=== PATIENT | male | born 1985 | race Caucasian/White ===

== ENCOUNTER 2016-06-17 07:46 | Inpatient (IN) | payer OTHER ==
[~2016-06-17] VITALS: Ht 182.9 cm; Wt 63.7 kg
[2016-06-17] VITALS (7 sets, daily range): BP systolic 90–118; BP diastolic 58–73
[~2016-06-17 07:46] MED LIST: LANTUS INS100 UNITS/ SUBQ; NOVOLIN R100 U/ML SUBQ; NOVOLIN R100 UNITS/ SUBQ
[2016-06-17] MEDS ORDERED: NACL 0.9% 1,000 ML IV SCH ×2 (07:51→10:55)
--- NOTE | 2016-06-17 07:51 | NUR ---
Patient BIBA BLS, transferred to bed 6. RN evaluating patient at bedside.
[2016-06-17] MEDS ORDERED: KETOROLAC 30 MG/ML VIAL IVP ONE (07:55)
[2016-06-17] MEDS ORDERED: ONDANSETRON 4 MG/2 ML VIAL IVP ONE (07:55)
--- NOTE | 2016-06-17 08:00 | NUR ---
PT BIBA - C/O LOWER LEFT NECK PAIN RADIATING DOWN LEFT ARM X2 DAYS;PAIN SCALE OF 7/10;HX OF DM ;NEUROPATHY;AAOX4;NO ACUTE DISTRESS NOTED AT THIS BR[place];DENIES CP/SOB;F;PT STATES HE VOMITTED THIS MORNING;HOB ELEVATED;NEEDS ATTENDED;ALL MONMITORS IN PLACED;SAFETY MEASURES DONE;MD MADE AWARE OF PT'S CONDITION.
--- NOTE | 2016-06-17 08:42 | NUR ---
PT RESTING ON BED;NO ACUTE DISTRESS NOTED AT THIS TIME;WILL CONTINUE TO MONITOR PT.
[2016-06-17] MEDS ORDERED: INSULIN HUMAN REGULAR 100 UNITS/ML 10 ML VIAL IVP ONE ×4 (09:25→10:40)
[2016-06-17] MEDS ORDERED: NACL 0.9% 2,000 ML IV ONE (09:25)
--- NOTE | 2016-06-17 10:40 | NUR ---
ASKED PT IF HE CAN GIVE A URINE SAMPLE;PT SAID HE CAN'T URINATE OF THE MOMENT.
[2016-06-17] MEDS ORDERED: MORPHINE SULFATE 2 MG/ML SYR IVP PRN (10:55)
[2016-06-17] MEDS ORDERED: ONDANSETRON 4 MG/2 ML VIAL IVP PRN (10:55)
--- NOTE | 2016-06-17 11:16 | NUR ---
CALLED ICU O GIVE REPORT;THEY SAID THEY CAN NOT RECIEVED PT AT THE MOMENT;THEY ARE WAITING FOR THE COOK SOUP NURSE TO ARRIVE;THEY WILL GIVE A CALL LATER;
--- NOTE | 2016-06-17 11:58 | NUR ---
Patient will be admitted to care of DR WESTFALL. Admited to ICU. Will go to room ICO 3. Belongings list completed. Report to DARRON DAWSON.
[2016-06-17] MEDS: INSULIN HUMAN REGULAR 100 UNITS in NACL 0.9% 100 ML IV SCH (12:10)
[2016-06-17] MEDS: BLOOD GLUCOSE MONITORING 1 DEV DEV FS SCH ×13 (12:15→23:16)
[2016-06-17] MEDS ORDERED: DEXTROSE 50% 50 ML SYR IVP PRN (12:15)
[2016-06-17] MEDS ORDERED: BLOOD GLUCOSE MONITORING 1 DEV DEV FS SCH (12:15)
--- NOTE | 2016-06-17 12:40 | NUR ---
RECEIVED PT FROM ER BY ARUN, FULL CODE. PT AWAKE, ALERT. ROOM AIR .NO S/S OF RESPIRATORY DISTRESS NOTED. BEDSIDE MONITOR SHOWS SR, BP 107/61. LUNG SOUNDS CLEAR. ABDOMEN SOFT WITH ACTIVE BOWEL SOUNDS. PT ABLE TO MOVE ALL HIS EXTREMITIES. IV TO RIGHT AC #22 ON INSULIN DRIP 5 UNIT/HR, SITE INTACT AND PATENT. POC DISCUSSED WITH PT, PT VERBALIZED UNDERSTANDING. MILD WEAKNESS, TEMP 99.2. HOB ELEVATED 30 DEGREES WITH LOW BED POSITION, CALL LIGHT IN REACH. NPO AT THIS TIME. MRSA COLLECTED. WILL CONTINUE TO MONITOR.
[2016-06-17] MEDS: NICOTINE TRANSD SYS 14 MG/24 HR PATCH TD SCH (13:13)
--- NOTE | 2016-06-17 13:40 | NUR ---
PT IS UNABLE TO GIVE SPUTUM DUE TO ALOC
--- NOTE | 2016-06-17 15:00 | NUR ---
PT SLEEPING , NO S/S OF RESPIRATORY DISTRESS NOTED. CALL LIGHT IN REACH
--- NOTE | 2016-06-17 16:05 | NUR ---
OFFERED PT URINAL. PT VOIDS FREELY, PT HAD 1800 CLEAR YELLOW URINE OUTPUT.
[2016-06-17] MEDS ORDERED: DEXT 5% / NACL 0.9% 500 ML IV SCH (17:30)
--- NOTE | 2016-06-17 17:30 | NUR ---
CALLED . UPDATED PT LAB AND BS 76, PER CONTINUE INSULIN 1 UNIT/HR AND CHANGE IVF TO D5NS 1000ML AT 100 ML/HR, WILL CARRY OUT.
[2016-06-17] MEDS: DEXT 5% /NACL 0.9% 1,000 ML IV SCH (17:50)
--- NOTE | 2016-06-17 18:31 | NUR ---
DR. HERNÁNDEZ IN TO ASSESS PT.
--- NOTE | 2016-06-17 18:50 | NUR ---
PT AWAKE, ALERT, HAD 100% OF DINNER TRAY. NO S/S OF RESPIRATORY DISTRESS NOTED.
--- NOTE | 2016-06-17 19:20 | NUR ---
REPORT GIVEN TO DORIAN ROB.
--- NOTE | 2016-06-17 19:37 | NUR ---
RECEIVED REPORT FROM EUNICE ROB. PATIENT IS SLEEPING IN BED, BUT IS AROUSED BY NAME. VITALS ARE STABLE. NO REPORTS OF PAIN OR DISCOMFORT AT THIS TIME. BREATH SOUNDS ARE CLEAR UPON AUSCULTATION AND BOWEL SOUNDS ARE ACTIVE. THERE IS A #22 IN THE PATIENT'S RIGHT ANTECUBITAL RECEIVING D5NS AT 100 ML/HR AND INSULIN DRIP PER PROTOCOL AT 1 UNIT/HR RELATED TO DX OF DIABETIC KETOACIDOSIS. SCDS ARE IN PLACE FOR VTE PROPHYLAXIS. HOB AT 30 DEGREES WITH BED IN LOW POSITION. CALL LIGHT WITHIN REACH. WILL CONTINUE TO MONITOR PATIENT.
--- NOTE | 2016-06-17 20:15 | NUR ---
ANDROID SOFTWARE ENGINEER AT BEDSIDE FOR SCHEDULED LAB DRAW.
--- NOTE | 2016-06-17 21:30 | NUR ---
PATIENT SLEEPING IN BED. BREATHING IS EVEN AND UNLABORED. SAFETY MEASURES ENFORCED, WITH CALL LIGHT WITHIN REACH. CONTINUE TO MONITOR PATIENT.
[2016-06-18] VITALS (12 sets, daily range): BP systolic 91–129; BP diastolic 44–82
[2016-06-18] MEDS: BLOOD GLUCOSE MONITORING 1 DEV DEV FS SCH ×24 (00:17→23:12)
--- NOTE | 2016-06-18 00:34 | NUR ---
PATIENT SLEEPING IN BED. BREATHING IS EVEN AND UNLABORED. CALL LIGHT WITHIN REACH. CONTINUE TO MONITOR.
--- NOTE | 2016-06-18 03:34 | NUR ---
NO CHANGES IN PATIENT'S CONDITION. PATIENT IS ASLEEP IN BED, BUT CAN BE AROUSED BY NAME. NO SIGNS OF SOB OR DISTRESS NOTED. CALL LIGHT WITHIN REACH. CONTINUE TO MONITOR.
[2016-06-18] MEDS: DEXT 5% /NACL 0.9% 1,000 ML IV SCH ×3 (03:48→23:50)
--- NOTE | 2016-06-18 03:52 | NUR ---
PATIENT AWAKE AND RESTING IN BED. PATIENT REQUESTED SNACK. PROVIDED 1 CUP OF JELLO AND 1 BOX OF APPLE JUICE. EXPLAINED TO PATIENT THAT A SPUTUM SAMPLE IS NEEDED AND INSTRUCTED PATIENT TO EXPECTORATE SPUTUM INTO SPECIMEN CUP. PATIENT VERBALIZED UNDERSTANDING, BUT IS UNABLE TO EXPECTORATE SPUTUM AT THIS TIME. PATIENT'S NEEDS MET AT THIS TIME. CALL LIGHT WITHIN REACH. WILL CONTINUE TO MONITOR PATIENT.
--- NOTE | 2016-06-18 04:12 | NUR ---
PATIENT STATED "I'M STARVING" AND REQUESTED XIOMARA CRACKERS AND SOMETHING TO DRINK. REINFORCED TO PATIENT THAT HE IS ON A CLEAR LIQUID DIET PER MD ORDERS. OFFERED PATIENT JELLO AND JUICE. PATIENT VERBALIZED UNDERSTANDING. PROVIDED 1 CUP OF JELLO AND 1 BOX OF APPLE JUICE. PATIENT'S NEEDS MET AT THIS TIME. CALL LIGHT WITHIN REACH. CONTINUE TO MONITOR PATIENT.
--- NOTE | 2016-06-18 05:05 | NUR ---
WAREHOUSE TRAINER AT BEDSIDE FOR SCHEDULED LAB DRAWS.
--- NOTE | 2016-06-18 06:36 | NUR ---
PATIENT SLEEPING IN BED WITH NO SIGNS OF SOB OR DISTRESS NOTED. CALL LIGHT WITHIN REACH. CONTINUE TO MONITOR.
--- NOTE | 2016-06-18 07:02 | NUR ---
PATIENT IN STABLE CONDITION. ALL PATIENT'S NEEDS ATTENDED TO DURING SHIFT. ENDORSED CONTINUITY OF CARE TO EUNICE ROB.
--- NOTE | 2016-06-18 07:30 | NUR ---
RECEIVED REPORT FROM DORIAN, PT SLEEPING BUT EASILY AWAKING BY INITIAL ASSESSMENT. NO S/S OF RESPIRATORY NOTED. PT ON INSULIN DRIP 1 UNIT/HR PER PROTOCOL AND D5NS 100 ML/HR. SITE INTACT AND PATENT. ABDOMEN FLAT AND SOFT WITH ACTIVE BOWEL SOUND. SCDS IN PLACE, CALL LIGHT IN REACH, HOB ELEVATED 30 DEGREES, POC DISCUSSED WITH PT, PT DENIES PAIN AT THIS TIME.WILL CONTINUE TO MONITOR.
[2016-06-18] MEDS: ENOXAPARIN 40 MG/0.4 ML SYR SUBQ SCH (08:40)
--- NOTE | 2016-06-18 08:45 | NUR ---
CALLED DR. HERNÁNDEZ REGARDING PT LAB REPORT AND RECENT BLOOD SUGAR RESULT. NO NEW ORDER RECEIVED AT THIS TIME.
--- NOTE | 2016-06-18 08:50 | NUR ---
DR. HERNÁNDEZ CALLED AND NOTIFIED OF 0500 BMP RESULTS. WILL CONTINUE INSULIN DRIP ORDERED. Addendum: 06/18/16 at 1007 by Promise Cline RN DUPLICATE CHARTING.
--- NOTE | 2016-06-18 10:15 | NUR ---
PT REFUSED TO CHECK BLOOD SUGAR, BENEFITS AND RISKS EXPLAINED TO PT, PT STILL REFUSED. CHARGE NURSE AWARE.
--- NOTE | 2016-06-18 11:15 | NUR ---
PT REFUSED BLOOD SUGAR CHECKED. EXPLAINED TO PT IF WE DO NOT CHECK BLOOD SUGAR, WE UNABLE TO KNOW HOW TO ADJUST INSULIN DRIP PER PROTOCOL. PT STATING " I HAVE BEEN DIABETES FOR 13 YEARS, I KNOW WHEN MY BLOOD SUGAR IS HIGH OR LOW". CHARGE NURSE AWARE.
[2016-06-18] MEDS ORDERED: PROBIOTIC SCREEN 1 EA MISC MC PRN (11:30)
[2016-06-18] MEDS: INSULIN HUMAN REGULAR 100 UNITS in NACL 0.9% 100 ML IV SCH (12:06)
[2016-06-18] MEDS: MORPHINE SULFATE 4 MG/ML SYR IVP PRN ×3 (12:11→22:21)
[2016-06-18] MEDS: NICOTINE TRANSD SYS 14 MG/24 HR PATCH TD SCH (12:56)
--- NOTE | 2016-06-18 14:51 | NUR ---
NOTIFIED REGARDING 1300 BMP, NO NEW ORDER RECEIVED.
--- NOTE | 2016-06-18 15:23 | NUR ---
OFFERED PT BEDSIDE COMMODE, 1800 ML CLEAR YELLOW URINE OUTPUT.
[2016-06-18] MEDS ORDERED: HYDROcodone/APAP 5/325 MG 1 TAB TAB PO PRN (16:20)
[2016-06-18] MEDS ORDERED: ACETAMINOPHEN 325 MG TAB PO PRN (16:20)
--- NOTE | 2016-06-18 18:00 | NUR ---
DINNER TRAY SERVED, PT ATE 100%. NO S/S OF RESPIRATORY DISTRESS NOTED. WILL CONTINUE TO MONITOR.
--- NOTE | 2016-06-18 19:05 | NUR ---
PT AWAKE, ALERT, ORIENTED. RESTING IN BED WATCHING TV. NO SOB.
--- NOTE | 2016-06-18 19:22 | NUR ---
RECEIVED REPORT FROM EUNICE ROB. PATIENT IS AWAKE AND ALERT, RESTING IN BED WATCHING TELEVISION. VITALS ARE STABLE. PATIENT COMPLAINS OF 4/10 HEADACHE AND ASKED FOR MEDICATION. ADMINISTERED TYLENOL PRN PER DOCTOR'S ORDERS. BREATH SOUNDS ARE CLEAR UPON AUSCULTATION AND BOWEL SOUNDS ARE ACTIVE. THERE IS A #22 IN THE PATIENT'S RIGHT ANTECUBITAL RECEIVING D5NS AT 100 ML/HR AND INSULIN DRIP PER PROTOCOL AT 1 UNIT/HR RELATED TO DX OF DIABETIC KETOACIDOSIS. SCDS ARE IN PLACE FOR VTE PROPHYLAXIS. EXPLAINED PLAN OF CARE TONIGHT TO INCLUDE SCHEDULED MEDICATION ADMINISTRATION, VITALS SIGNS, AND MONITORING. PATIENT VERBALIZED UNDERSTANDING. HOB AT 30 DEGREES WITH BED IN LOW POSITION. CALL LIGHT WITHIN REACH. WILL CONTINUE TO MONITOR PATIENT.
--- NOTE | 2016-06-18 20:00 | NUR ---
PATIENT REQUESTED A SNACK. RAMÓN LISA MAY BROUGHT IN TURKEY SANDWICH FOR PATIENT. PATIENT'S NEEDS MET AT THIS TIME WILL CONTINUE TO MONITOR PATIENT.
--- NOTE | 2016-06-18 21:05 | NUR ---
FIRE CREW SPECIALIST AT BEDSIDE FOR SCHEDULED BLOOD DRAW.
--- NOTE | 2016-06-18 23:02 | NUR ---
PATIENT RESTING QUIETLY IN BED WATCHING TV. NO SIGNS OF SOB OR DISTRESS NOTED. VITALS ARE STABLE. CALL LIGHT WITHIN REACH. WILL CONTINUE TO MONITOR PATIENT.
[2016-06-19] VITALS: BP 100/52
--- NOTE | 2016-06-19 00:03 | NUR ---
PATIENT RESTING QUIETLY IN BED WATCHING TV. NO SIGNS OF ACUTE DISTRESS NOTED. VITALS ARE STABLE. CALL LIGHT WITHIN REACH. WILL CONTINUE TO MONITOR.
--- NOTE | 2016-06-19 00:07 | NUR ---
MASTER GLAZIER AT BEDSIDE FOR SCHEDULED LAB DRAW.
[2016-06-19] MEDS: BLOOD GLUCOSE MONITORING 1 DEV DEV FS SCH ×8 (00:18→07:25)
--- NOTE | 2016-06-19 01:07 | NUR ---
PATIENT REQUESTED SANDWICH. RAMÓN JACKSON RN NOTIFIED. 1 CHICKEN SALAD SANDWICH PROVIDED. PATIENT'S NEEDS MET AT THIS TIME. CALL LIGHT WITHIN REACH. CONTINUE TO MONITOR.
[2016-06-19 02:00] VITALS: BP 113/72
[2016-06-19] MEDS: MORPHINE SULFATE 4 MG/ML SYR IVP PRN ×2 (02:41→07:25)
[2016-06-19 04:00] VITALS: BP 114/73
--- NOTE | 2016-06-19 04:00 | NUR ---
BAG TURNER AT BEDSIDE FOR SCHEDULED LAB DRAW.
--- NOTE | 2016-06-19 04:05 | NUR ---
PATIENT REQUESTED SNACK. 1 PACKET OF XIOMARA CRACKERS AND SMALL CARTON OF MILK PROVIDED. CONTINUE TO MONITOR.
[2016-06-19 06:00] VITALS: BP 105/66
--- NOTE | 2016-06-19 07:11 | NUR ---
PATIENT IN STABLE CONDITION. ALL NEEDS ATTENDED TO DURING SHIFT. ENDORSED CONTINUITY OF CARE TO SANJAY ROB.
--- NOTE | 2016-06-19 07:20 | NUR ---
RECEIVED REPORT FROM DARRON ALARCON. PT SEEN AT BEDSIDE. PT IS AAOX4 WITH NO S/S DISTRESS OR SOB; ON ROOM AIR. ON DISABILITY LIAISON OFFICER RUNNING SINUS RHYTHM. PT HAS RIGHT AC 22G IV RUNNING IVF AND INSULIN DRIP AT THIS TIME. PT HAS GOOD APPETITE. SKIN IS WARM, DRY, INTACT; PT IS AMBULATORY. PT STATES HE HAS 7/10 NECK PAIN. PT REFUSED SCD'S AT THIS TIME. SAFETY MEASURES CHECKED, CALL LIGHT LEFT AT BEDSIDE. WILL CONTINUE TO MONITOR.
--- NOTE | 2016-06-19 07:25 | NUR ---
MORPHINE ADMINISTERED FOR NECK PAIN 09/11.
--- NOTE | 2016-06-19 07:26 | NUR ---
BLOOD GLUCOSE 182. THREE CONSECUTIVE ANION GAP HAVE BEEN BELOW 12. INSULIN DRIP STOPPED.
--- NOTE | 2016-06-19 07:40 | NUR ---
WAS NOTIFIED OF INSULIN DRIP HAS BEEN STOPPED,UPDATED IN PT'S CONDITION AND LAB REPORT WITH LOW SERUM MG 1.4 AND SERUM K 3.4. ORDER RECEIVED FOR INSULIN SUBQ SLIDING SCALE,CHANGE FREQUENCY OF FS BLOOD GLUCOSE TO AC&HS,GIVE MAGNESIUM SULFATE 2 GM IVPB X 1 AND TRANSFER PATIENT TO MED-SURG.
[2016-06-19] MEDS ORDERED: INSULIN LISPRO SLIDING SCALE 100 UNITS/ML VIAL SUBQ PRN (07:45)
[2016-06-19] MEDS ORDERED: DEXTROSE 50% 50 ML SYR IVP PRN (07:45)
--- NOTE | 2016-06-19 07:48 | NUR ---
PATIENT HAS BEEN SCREENED AND CATEGORIZED HIGH NUTRITION RISK. PATIENT WILL BE SEEN WITHIN 1-2 DAYS OF ADMISSION. 06/18/16-06/19/[address]
--- NOTE | 2016-06-19 07:50 | NUR ---
BREAKFAST TRAY PLACED NEXT TO PATIENT.
[2016-06-19 08:00] VITALS: BP 100/57
[2016-06-19] MEDS ORDERED: MAG SULF 2000 MG/WATER PREMIX 50 ML IV SCH (08:00)
[2016-06-19] MEDS ORDERED: POTASSIUM CHLORIDE 10 MEQ TABER PO SCH (08:04)
--- NOTE | 2016-06-19 08:15 | NUR ---
PT REQUESTING FOR A SNACK. CHOCOLATE PUDDING OFFERED. PT STATED THAT CHOCOLATE PUDDING IS OK.
[2016-06-19] MEDS: ENOXAPARIN 40 MG/0.4 ML SYR SUBQ SCH (08:33)
--- NOTE | 2016-06-19 08:33 | NUR ---
ROUTINE MEDICATIONS ADMINISTERED WITH EDUCATION. PT REFUSED LEVEMIR 30 UNITS. PER PT, HE DOES NOT LIKE LEVEMIR BECAUSE IT GIVES HIM HEADACHES. PT SAYS HE ALREADY SELF-ADMINISTERED 6 UNITS OF HUMALOG INSULIN. TOLD PT NOT TO SELF-ADMINISTER WHEN HE IS IN THE HOSPITAL BECAUSE IT MAY DOUBLE DOSE WITH THE SCHEDULED INSULIN HE HAS. PT VERBALIZED UNDERSTANDING. PT ALSO STATED THAT HE GETS LEVEMIR AT NIGHT.
--- NOTE | 2016-06-19 08:35 | NUR ---
CALLED PASCUAL, PHARMACIST, TO CHANGE LEVEMIR 30 UNITS SUBQ TO NIGHTTIME DOSE. PER PASCUAL, IT IS OK LONG PATIENT HASN'T RECEIVED LEVEMIR THIS AM.
--- NOTE | 2016-06-19 08:45 | NUR ---
PT REQUESTING DIET LORRAINE. DIETARY CALLED, MESSAGE LEFT.
--- NOTE | 2016-06-19 08:55 | NUR ---
PROVIDED PATIENT WITH DIET LORRAINE.
[2016-06-19] MEDS ORDERED: INSULIN DETEMIR 100 UNITS/ML 10 ML VIAL SUBQ SCH (09:00)
--- NOTE | 2016-06-19 09:00 | NUR ---
PT REQUESTING FOR SANDWICH. DIETARY CALLED, MESSAGE LEFT THAT PT IS REQUESTING FOR SANDWICH. Addendum: 06/19/16 at 1120 by Trice Page RN TIME IS AT 1015, NOT 0900.
[2016-06-19] MEDS: DEXT 5% /NACL 0.9% 1,000 ML IV SCH (10:06)
--- NOTE | 2016-06-19 10:08 | NUR ---
FAXED INITIAL REVIEW TO [facility] [phone] PHONE NIRMALA [phone]
--- NOTE | 2016-06-19 11:00 | NUR ---
PATIENT STATING THAT HE WANTS TO LEAVE AMA. PULLING OFF OVERNIGHT HOUSEPERSON, SPO2 MONITOR AT THIS TIME.
--- NOTE | 2016-06-19 11:01 | NUR ---
DR EDGAR MCKINNEY B/C PATIENT WANTS TO LEAVE AMA. AWAITING CALLBACK.
--- NOTE | 2016-06-19 11:09 | NUR ---
PATIENT WANTS TO LEAVE AMA. ASKED PATIENT IF I CAN ADDRESS ANY ISSUES HE HAS WITH THE HOSPITAL BEFORE LEAVING AMA. PATIENT STATED THAT HE IS JUST WAITING AT THE HOSPITAL AND NOT TRANSFERRED OUT OF THE ICU, NO SANDWICH WAS PROVIDED FOR HIM WHEN HE ASKED, AND THE DOCTOR HASN'T DONE ANYTHING FOR THIS NECK PAIN. EXPLAINED TO PATIENT THAT THE KITCHEN WAS CALLED AND MESSAGE WAS LEFT FOR HIS SANDWICH REQUEST AND THAT WE ARE WAITING FOR AN AVAILABLE BED IN TELE UNIT. EXPLAINED TO PATIENT THAT HE IS IN THE HOSPITAL BECAUSE HIS BLOOD SUGAR WAS EXTREMELY HIGH, MONITORING IS REQUIRED UNTIL HE IS STABLE ENOUGH FOR DISCHARGE. THE DOCTOR IS NOT READY TO DISCHARGE HIM AT THIS TIME AND HE WILL BE LEAVING AGAINST THE MEDICAL ADVICE OF DR. HERNÁNDEZ. PT ALSO DOES NOT WANT TO WAIT FOR DR HERNÁNDEZ'S CALL BACK. PT VERBALIZED UNDERSTANDING AND STILL WANTS TO LEAVE. AMA FORM SIGNED. WRIST BANDS CUT OFF AND IV DISCONTINUED. Addendum: 06/19/16 at 1146 by Trice Page RN PER PATIENT, HE HAS ALL BELONGINGS WITH HIM.
[2016-06-19] MEDS ORDERED: BLOOD GLUCOSE MONITORING 1 DEV DEV FS SCH (11:30)
--- NOTE | 2016-06-19 11:34 | NUR ---
NOTIFIED APPLICATIONS SUPPORT ENGINEER, MELISSA, THAT PATIENT HAS LEFT AMA. ALDO, DIRECTOR OF ICU AWARE.
--- NOTE | 2016-06-19 12:21 | NUR ---
06/19/16 RD INITIAL ASSESSMENT COMPLETED PLEASE REFER TO NUTRITION ASSESSMENT UNDER CARE ACTIVITY FOR ESTIMATED NUTRITIONAL NEEDS. RD RECOMMENDATIONS: CONTINUE CCHO 45 GM DIET TOLERATED. WHEN MEDICALLY APPROPRIATE CONSIDER ADVANCING DIET TO CCHO [address] PROVIDED PT WITH DM DIET EDUCATION. 4. RD WILL F/U 3-5 DAYS; MODERATE RISK. GURU ALMANZAR RD
== END 2016-06-19 11:09 | disposition left against medical advice (07) | DRG 420 ==
LOC: MED 07:46 → MIC 11:13
PROVIDERS: ADMIT Internal Medicine Pulmonary Disease; ATTEND Internal Medicine Pulmonary Disease
DX: E10.10 Type 1 diabetes mellitus with ketoacidosis without coma (principal); E10.42 Type 1 diabetes mellitus with diabetic polyneuropathy; E87.1 Hypo-osmolality and hyponatremia; F15.10 Other stimulant abuse, uncomplicated; F17.200 Nicotine dependence, unspecified, uncomplicated; J06.9 Acute upper respiratory infection, unspecified; F12.90 Cannabis use, unspecified, uncomplicated; Z53.21 Procedure and treatment not carried out due to patient leaving prior to being seen by health care provider; S16.1XXA Strain of muscle, fascia and tendon at neck level, initial encounter; X58.XXXA Exposure to other specified factors, initial encounter; Z59.0 Homelessness; Z91.19 Patient's noncompliance with other medical treatment and regimen; Z83.3 Family history of diabetes mellitus; Z82.49 Family history of ischemic heart disease and other diseases of the circulatory system; Y99.8 Other external cause status; Y93.89 Activity, other specified; Y92.89 Other specified places as the place of occurrence of the external cause

== ENCOUNTER 2016-06-20 12:47 | Inpatient (IN) | payer OTHER ==
[~2016-06-20] VITALS: Ht 180.3 cm; Wt 66.7 kg
[~2016-06-20 12:47] MED LIST changes: -LANTUS INS100 UNITS/ SUBQ; +LANTUS SUBQ; -NOVOLIN R100 U/ML SUBQ; -NOVOLIN R100 UNITS/ SUBQ; +NOVR SUBQ; +SLIDE SUBQ
[2016-06-20 13:12] VITALS: BP 114/64
[2016-06-20] MEDS ORDERED: NACL 0.9% 500 ML IV ONE ×2 (13:37)
--- NOTE | 2016-06-20 13:40 | NUR ---
Pt taken to bed 6.
--- NOTE | 2016-06-20 13:45 | NUR ---
30/M presents to ED for evaluation of generalized weakness and c/o pain to left neck. Pt states "I have a lump in my neck it's been there for 2 years." Patient was admitted here for DKA Sunday and signed out AMA yesterday. Denies N/V/D. Denies s/s of UTI. Pt is AOX4, states he is livingon the streets right now. VSS. Pt states he takes insulin but is not always compliant with taking it. Pt states "I live on the streets. It's hard."
[2016-06-20 13:52] LABS: BLOOD GAS BASE EXCESS -15.4 mmol/L (-2.0-2.0); BLOOD GAS HCO3 10.7 mmol/L; BLOOD GAS O2 SAT% 93.5 % (92.0-98.5); BLOOD GAS PCO2 26.9 mmHg (20-50); BLOOD GAS PH 7.216 (7.35-7.45); BLOOD GAS PO2 80.9 mmHg
[2016-06-20 13:57] LABS: BASOPHILS # (AUTO) 0.1 K/uL (0.00-0.22); BASOPHILS % (AUTO) 0.9 % (0.0-2.0); EOSINOPHILS # (AUTO) 0.1 K/uL (0-0.4); EOSINOPHILS % (AUTO) 1.3 % (0.0-4.0); HEMATOCRIT 43.1 % (36-52); HEMOGLOBIN 13.9 g/dL (12.0-18.0); LYMPHOCYTES # (AUTO) 0.8 K/uL (2.0-11.5); LYMPHOCYTES % (AUTO) 13.5 % (20.5-51.1); MEAN CORPUSCULAR HEMOGLOBIN 31 pg (27-31); MEAN CORPUSCULAR HGB CONC 32 g/dL (33-37); MEAN CORPUSCULAR VOLUME 96 fL (80-94); MONOCYTES # (AUTO) 0.2 K/uL (0.8-1.0); MONOCYTES % (AUTO) 3.6 % (1.7-9.3); NEUTROPHILS # (AUTO) 4.7 K/uL (1.8-7.7); NEUTROPHILS % (AUTO) 80.7 % (42.2-75.2); PLATELET COUNT (AUTO) 189 K/uL (140-450); RED BLOOD CELL COUNT(AUTO) 4.47 MIL/uL (4.20-6.10); RED CELL DISTRIBUTION WIDTH 11.9 % (11.6-13.7); WHITE BLOOD COUNT (AUTO) 5.9 K/uL (4.8-10.8)
--- NOTE | 2016-06-20 14:18 | NUR ---
Patient being evaluated by physician at bedside.
[2016-06-20 14:19] LABS: ALANINE AMINOTRANSFERASE 54 U/L (12-78); ALBUMIN 3.6 g/dL (3.4-5.0); ALKALINE PHOSPHATASE 109 U/L (46-116); ASPARTATE AMINOTRANSFERASE 25 U/L (15-37); CALCIUM 8.5 mg/dL (8.5-10.1); CARBON DIOXIDE 14.1 mmol/L (21-32); GFR ARICAN-AMERICAN 112 mL/min (>90); GFR NON ARICAN-AMERICAN 93 mL/min (>90); TOTAL BILIRUBIN 1.1 mg/dL (0.0-1.0); TOTAL PROTEIN, SERUM 6.5 g/dL (6.4-8.2); UREA NITROGEN, BLOOD 17 mg/dL (7-18)
[2016-06-20 14:26] LABS: ANION GAP 28.1 (8-16); CHLORIDE 87 mmol/L (98-107); POTASSIUM 5.2 mmol/L (3.5-5.1)
[2016-06-20 14:29] LABS: ACETONE, SERUM MODERATE (NEGATIVE); GLUCOSE 855 mg/dL (74-106); SODIUM SERUM 124 mmol/L (136-145)
[2016-06-20] MEDS ORDERED: INSULIN HUMAN REGULAR 100 UNITS/ML 10 ML VIAL IVP ONE (14:30)
[2016-06-20] MEDS ORDERED: NACL 0.9% 1,000 ML IV ONE (14:30)
--- NOTE | 2016-06-20 14:44 | NUR ---
MEDICATION ADMINISTERED ORDERED.
[2016-06-20] MEDS ORDERED: INSULIN HUMAN REGULAR 100 UNITS in NACL 0.9% 100 ML IV ONE (15:10)
[2016-06-20] MEDS ORDERED: ONDANSETRON 4 MG/2 ML VIAL IVP ONE (15:15)
[2016-06-20] MEDS ORDERED: KETOROLAC 30 MG/ML VIAL IVP ONE (15:15)
--- NOTE | 2016-06-20 15:23 | NUR ---
MEDICATION ADMINISTERED ORDERED.
--- NOTE | 2016-06-20 15:33 | NUR ---
Pt provided with warm blanket and pillow. Pt placed in a position of comfort. VSS.
--- NOTE | 2016-06-20 15:46 | NUR ---
Patient will be admitted to care of Dr. Donato. Admited to ICU-3. Will go to room ICU 3. Belongings list completed. Report to Trice ROB.
[2016-06-20 16:00] VITALS: BP 102/53
--- NOTE | 2016-06-20 16:21 | NUR ---
Dr. Perez at bedside.
[2016-06-20] MEDS ORDERED: DEXTROSE 50% 50 ML SYR IVP PRN (16:40)
[2016-06-20 16:45] VITALS: BP 102/53
--- NOTE | 2016-06-20 16:45 | NUR ---
RECEIVED PATIENT FROM ER. PT TRANSFERRED FROM [facility] TO [facility]. PT IS AAOX4, ON ROOM AIR. PT ATTACHED TO BEDSIDE MONITOR. VITAL SIGNS STABLE: TEMP 98.3F, 93 HR, 102/53 BP, RR14. PT STATES THAT HE CAME INTO HOSPITAL FOR PAIN IN THE NECK AND GENERAL MALAISE. PAIN MEDS WERE ADMINISTERED IN ER. PT HAS IV ON LEFT FA 20G RUNNING INSULIN DRIP. IV IS PATENT AND INTACT. BLOOD GLUCOSE IS CURRENTLY 421. LEFT FOOT EXCORIATION/REDNESS NOTED ON LEFT FOOT AND MULTIPLE DRIED SCABS ON LOWER EXTREMITY NOTED. SCD'S PLACED, CALL LIGHT LEFT AT BEDSIDE AND SAFETY MEASURES CHECKED. WILL CONTINUE TO MONITOR.
--- NOTE | 2016-06-20 17:00 | NUR ---
DR CALIX AT NURSING STATION. UPDATED MD ON PATIENT CONDITION. WILL FOLLOW UP ON ORDERS.
[2016-06-20] MEDS: BLOOD GLUCOSE MONITORING 1 DEV DEV FS SCH ×8 (17:25→23:40)
--- NOTE | 2016-06-20 17:30 | NUR ---
DR FIFI MCKINNEY.
--- NOTE | 2016-06-20 17:35 | NUR ---
RECEIVED CALL BACK FROM DR GARCIA. PT NEEDS PAIN MEDICATION AND IVF ORDER. ORDERS RECEIVED; WILL FOLLOW UP.
[2016-06-20] MEDS ORDERED: HYDROcodone/APAP 5/325 MG 1 TAB TAB PO PRN (17:40)
[2016-06-20] MEDS ORDERED: ONDANSETRON 4 MG/2 ML VIAL IVP PRN (17:40)
[2016-06-20] MEDS ORDERED: ACETAMINOPHEN 325 MG TAB PO PRN (17:40)
[2016-06-20] MEDS ORDERED: NACL 0.9% 1,000 ML IV SCH (17:40)
[2016-06-20] MEDS: INSULIN HUMAN REGULAR 100 UNITS in NACL 0.9% 100 ML IV SCH ×2 (17:47→18:43)
--- NOTE | 2016-06-20 17:55 | NUR ---
DINNER TRAY GIVEN TO PATIENT.
[2016-06-20 18:00] VITALS: BP 115/73
--- NOTE | 2016-06-20 18:24 | NUR ---
PT REFUSED ORAL CARE OR PM CARE AT THIS TIME.
--- NOTE | 2016-06-20 19:08 | NUR ---
ENDORSED PLAN OF CARE TO DARRON CAMERON.
[2016-06-20 20:00] VITALS: BP 98/57
--- NOTE | 2016-06-20 20:00 | NUR ---
PATIENT ASLEEP, OPEN EYES AND FOLLOWS SIMPLE COMMANDS, SR ON THE MONITOR, RESPIRATIONS NORMAL, ON REGULAR INSULIN DRIP, DECREASED TO 2 UNITS/HE AT 1940, BS WAS 247, LFA IV SITE G#20 PATENT AND INTACT, WITH IVF OF NS AT 200 MLS/HR, DENIES PAIN.
[2016-06-20 20:39] LABS: ANION GAP 11.7 (8-16); CALCIUM 8.2 mg/dL (8.5-10.1); CARBON DIOXIDE 25.5 mmol/L (21-32); CREATININE 0.9 mg/dL (0.6-1.3); POTASSIUM 4.2 mmol/L (3.5-5.1)
[2016-06-20] MEDS: DEXT 5% / NACL 0.45% 1,000 ML IV SCH (20:40)
[2016-06-20 20:58] LABS: MAGNESIUM 1.9 mg/dL (1.8-2.4); PHOSPHORUS 3.6 mg/dL (2.5-4.9)
[2016-06-20 22:00] VITALS: BP 114/70
--- NOTE | 2016-06-20 22:00 | NUR ---
BLOOD SUGAR MONITORED Q1H, REGULAR INSULIN DRIP TITRATED PER BLOOD SUGAR SUGAR LEVEL, IVF CONTINUE, DENIES PAIN.
[2016-06-21] VITALS (8 sets, daily range): BP systolic 105–124; BP diastolic 60–80
--- NOTE | 2016-06-21 | NUR ---
PATIENT ASLEEP, CONTINUE WITH BLOOD SUGAR MONITORING.
[2016-06-21] MEDS: BLOOD GLUCOSE MONITORING 1 DEV DEV FS SCH ×8 (00:41→07:40)
[2016-06-21 00:57] LABS: ANION GAP 10.7 (8-16); CREATININE 0.7 mg/dL (0.6-1.3); POTASSIUM 3.7 mmol/L (3.5-5.1)
[2016-06-21 01:01] LABS: MAGNESIUM 1.7 mg/dL (1.8-2.4); PHOSPHORUS 4.3 mg/dL (2.5-4.9)
[2016-06-21] MEDS: DEXT 5% / NACL 0.45% 1,000 ML IV SCH ×2 (03:30→06:05)
--- NOTE | 2016-06-21 03:47 | NUR ---
PATIENT GETTING UPSET WHY FINGERSTICK IS BEING DONE Q1H, EXPLAINED THAT IT IS NECESSARY TO MONITOR HIS BLOOD SUGAR WHILE HE IS ON REGULAR INSULIN DRIP. LAST BS AT 0340 WAS 105, INSULIN DRIP REMAINS AT 1 UNIT/HR, DENIES PAIN.
[2016-06-21 04:53] LABS: BASOPHILS # (AUTO) 0.2 K/uL (0.00-0.22); BASOPHILS % (AUTO) 3.5 % (0.0-2.0); EOSINOPHILS # (AUTO) 0.1 K/uL (0-0.4); EOSINOPHILS % (AUTO) 1.3 % (0.0-4.0); HEMATOCRIT 37.9 % (36-52); HEMOGLOBIN 12.6 g/dL (12.0-18.0); LYMPHOCYTES % (AUTO) 43.8 % (20.5-51.1); MEAN CORPUSCULAR HEMOGLOBIN 31 pg (27-31); MEAN CORPUSCULAR HGB CONC 33 g/dL (33-37); MEAN CORPUSCULAR VOLUME 92 fL (80-94); MONOCYTES # (AUTO) 0.4 K/uL (0.8-1.0); MONOCYTES % (AUTO) 7.5 % (1.7-9.3); NEUTROPHILS # (AUTO) 2.2 K/uL (1.8-7.7); NEUTROPHILS % (AUTO) 43.9 % (42.2-75.2); PLATELET COUNT (AUTO) 171 K/uL (140-450); RED CELL DISTRIBUTION WIDTH 11.6 % (11.6-13.7); WHITE BLOOD COUNT (AUTO) 4.9 K/uL (4.8-10.8)
--- NOTE | 2016-06-21 05:02 | NUR ---
SLEEPING COMFORTABLY, VS STABLE, LAST BLOOD SUGAR WAS 109.
--- NOTE | 2016-06-21 06:09 | NUR ---
REFUSED AM CARE, DENIES PAIN, CONTINUE ON REGULAR INSULIN DRIP, AT 1 UNIT.HR AT THIS TIME. DENIES PAIN.
[2016-06-21 06:14] LABS: ANION GAP 10.4 (8-16); CARBON DIOXIDE 26.1 mmol/L (21-32); CREATININE 0.6 mg/dL (0.6-1.3); POTASSIUM 3.5 mmol/L (3.5-5.1)
[2016-06-21] MEDS ORDERED: NACL 0.9% 1,000 ML IV SCH ×2 (06:40→09:45)
[2016-06-21 07:20] LABS: MAGNESIUM 1.6 mg/dL (1.8-2.4); PHOSPHORUS 4.1 mg/dL (2.5-4.9)
--- NOTE | 2016-06-21 07:40 | NUR ---
BLOOD GLUCOSE 119 CONTINUE INSULIN DRIP CONTINUE AT 1UNIT/HR.
--- NOTE | 2016-06-21 07:49 | NUR ---
PATIENT HAS BEEN SCREENED AND CATEGORIZED HIGH NUTRITION RISK. PATIENT WILL BE SEEN WITHIN 1-2 DAYS OF ADMISSION. 06/21/16-06/22/[address]
[2016-06-21 08:32] LABS: ANION GAP 9.3 (8-16); CALCIUM 8.1 mg/dL (8.5-10.1); CARBON DIOXIDE 28.4 mmol/L (21-32); CREATININE 0.8 mg/dL (0.6-1.3); POTASSIUM 3.7 mmol/L (3.5-5.1)
[2016-06-21 08:36] LABS: MAGNESIUM 1.5 mg/dL (1.8-2.4)
--- NOTE | 2016-06-21 08:40 | NUR ---
BL SUGAR 168 INSULIN DRIP AT 1UNIT/HR
[2016-06-21] MEDS ORDERED: INSULIN DETEMIR 100 UNITS/ML 10 ML VIAL SUBQ SCH (09:45)
[2016-06-21] MEDS ORDERED: INSULIN LISPRO SLIDING SCALE 100 UNITS/ML VIAL SUBQ PRN (09:45)
[2016-06-21] MEDS ORDERED: DEXTROSE 50% 50 ML SYR IVP PRN (09:45)
--- NOTE | 2016-06-21 09:45 | NUR ---
FIFI SESAY ORDERED TO D/C INSULIN IV DRIP STARTED ON SLIDING SCALE. AND GIVE LEVIMIR INSULIN 15UNIT SQGIVEN
--- NOTE | 2016-06-21 10:44 | NUR ---
CM NOTE INITIAL REVIEW SENT TO [facility] FAX# [phone] PH#NIRMALA [phone] AUGUST [phone]
[2016-06-21] MEDS ORDERED: BLOOD GLUCOSE MONITORING 1 DEV DEV FS SCH (11:30)
--- NOTE | 2016-06-21 11:30 | NUR ---
BL. GLUCOSE 172 , REGULAR INSULIN COVER ORDERED..
--- NOTE | 2016-06-21 12:45 | NUR ---
06/21/16 RD INITIAL ASSESSMENT COMPLETED PLEASE REFER TO NUTRITION ASSESSMENT UNDER CARE ACTIVITY FOR ESTIMATED NUTRITIONAL NEEDS. RD RECOMMENDATIONS: 1. CONTINUE CCHO 45 GM DIET TOLERATED PER MD 2. ONCE BLOOD GLUCOSE LEVELS ARE WNL CONSIDER LIBERALIZING DIET TO CCHO [address] OFFERED PT DM DIET EDUCATIONAL HANDOUTS. PT DECLINED. TO NOTE RD PROVIDED PT WITH DM DIET EDUCATION AT LAST HOSPITALIZATION 4. RD WILL F/U 5-7 DAYS; LOW RISK. GURU ALMANZAR RD
[2016-06-21] MEDS ORDERED: NEOMYCIN/POLYMYXIN/BACITRACIN OIN 15 GM TUBE TP SCH (13:00)
--- NOTE | 2016-06-21 13:15 | NUR ---
SEEN BY DR. CALIX ATBED SIDE. D/C PT TO GO HOME SELF CARE AND TO MAKE APPOINTMENT TO SEE HIS OWN PCP,
--- NOTE | 2016-06-21 14:00 | NUR ---
ANCEF 500MG IVPB GIVEN ORDERED ALSONEOSPORIN OINT. APPLY TO EFFECT AREA ON LEFT LEG.
[2016-06-21] MEDS ORDERED: PROBIOTIC SCREEN 1 EA MISC MC PRN (14:05)
--- NOTE | 2016-06-21 14:27 | NUR ---
Patient discharge instruction Addendum: 06/21/16 at 1428 by Markell Lofton RN Amended: Links added.
--- NOTE | 2016-06-21 15:15 | NUR ---
PT C/C HE WALK LOBBY WITH SECURITY WHO WILL WALK HIM TO BUS STATION HE HAS THE BUS PASS. HE IS AWAKE AND WELL ORIENTED AT THE TIME.
== END 2016-06-21 15:15 | disposition home or self-care (01) | DRG 420 ==
LOC: MED 12:47 → MIC 15:19
PROVIDERS: ADMIT Internal Medicine Pulmonary Disease; ATTEND Internal Medicine Pulmonary Disease
DX: E13.10 Other specified diabetes mellitus with ketoacidosis without coma (principal); L03.116 Cellulitis of left lower limb; E87.1 Hypo-osmolality and hyponatremia; J01.90 Acute sinusitis, unspecified; F15.10 Other stimulant abuse, uncomplicated; Z87.891 Personal history of nicotine dependence; Z79.4 Long term (current) use of insulin; Z59.0 Homelessness; Z91.19 Patient's noncompliance with other medical treatment and regimen
CPT/HCPCS: 36415; 36600; 80048; 80053; 82009; 82803; 82948; 83735; 84100; 85025; 87081; 96361; 96374; 96375; 99285; J0690; J1815; J1885; J2405; J7030; J7060

== ENCOUNTER 2016-07-08 08:46 | Emergency (ER) | payer SELFPAY ==
[~2016-07-08] VITALS: Ht 182.9 cm; Wt 54.4 kg
[~2016-07-08 08:46] MED LIST changes: -NOVR SUBQ
--- NOTE | 2016-07-08 08:46 | NUR ---
Patient BIBA ACLS, transferred to bed 4. RN evaluating patient at bedside.
[2016-07-08 08:50] VITALS: BP 126/62
--- NOTE | 2016-07-08 08:50 | NUR ---
PATIENT LEFT WITHOUT BEING SEEN BY DR. LYMAN. NO FURTHER CARE PROVIDED FOR PATIENT. WENT TO ASSESS PT IN BED 4; PT GOT UP, STATES " GIVE ME MY STUFF, I WANT TO LEAVE"; EXPLAINED RISKS/BENEFITS OF STAYING AND LEAVING; ER MD DR. LYMAN/CHARGE NURSE JULIAN NOTIFIED; PT LEFT FACILITY.
--- NOTE | 2016-07-08 08:53 | NUR ---
PATIENT BIB EMS WHILE TRIAGING WAS INFORMED THAT PATIENT GOT UP OFF OF GURNEY AND LEFT OUT BACK DOOR. PATIENT ELOPED
== END 2016-07-08 08:50 | disposition left against medical advice (07) ==
LOC: MED 08:46
DX: R06.02 Shortness of breath (principal); Z53.21 Procedure and treatment not carried out due to patient leaving prior to being seen by health care provider

== ENCOUNTER 2016-08-08 20:50 | Inpatient (IN) | payer OTHER ==
[~2016-08-08] VITALS: Ht 182.9 cm; Wt 64.4 kg
[2016-08-08 20:55] VITALS: BP 121/83
--- NOTE | 2016-08-08 21:04 | NUR ---
PT GINI ALS. TAKEN TO BED 6
[2016-08-08] MEDS ORDERED: NACL 0.9% 500 ML IV ONE ×2 (21:05)
[2016-08-08] MEDS ORDERED: KETOROLAC 15 MG/ML VIAL IVP ONE (21:15)
[2016-08-08] MEDS ORDERED: ONDANSETRON 4 MG/2 ML VIAL IVP ONE (21:15)
--- NOTE | 2016-08-08 21:15 | NUR ---
BIBA C/O GEN WEAKNESS FOR 2 DAYS, WITH RT SIDE NUMBNESS, HIGH BS TOO HIGH TO REEAD, HE WAS GIVEN 300MLS BOLUS NS ENROUTE. PT DENIES N/V/D; SKIN IS PINK/WARM/DRY; AAOX4 WITH EVEN AND STEADY GAIT; LUNGS CLEAR BL; HR EVEN AND REGULAR; PT DENIES ANY FEVER, CP, SOB, OR COUGH AT THIS TIME; PATIENT STATES PAIN OF 6/10 AT THIS TIME; VSS; PATIENT POSITIONED FOR COMFORT; HOB ELEVATED; BEDRAILS UP X2; BED DOWN. ER MD MADE AWARE OF PT STATUS.
[2016-08-08 21:31] LABS: BASOPHILS # (AUTO) 0.1 K/uL (0.00-0.22); BASOPHILS % (AUTO) 1.1 % (0.0-2.0); EOSINOPHILS # (AUTO) 0.1 K/uL (0-0.4); EOSINOPHILS % (AUTO) 0.9 % (0.0-4.0); HEMATOCRIT 42.5 % (36-52); HEMOGLOBIN 14.3 g/dL (12.0-18.0); LYMPHOCYTES # (AUTO) 1.8 K/uL (2.0-11.5); LYMPHOCYTES % (AUTO) 22.1 % (20.5-51.1); MEAN CORPUSCULAR HEMOGLOBIN 32 pg (27-31); MEAN CORPUSCULAR HGB CONC 34 g/dL (33-37); MEAN CORPUSCULAR VOLUME 96 fL (80-94); MONOCYTES # (AUTO) 0.5 K/uL (0.8-1.0); NEUTROPHILS # (AUTO) 5.6 K/uL (1.8-7.7); NEUTROPHILS % (AUTO) 69.9 % (42.2-75.2); PLATELET COUNT (AUTO) 307 K/uL (140-450); RED BLOOD CELL COUNT(AUTO) 4.41 MIL/uL (4.20-6.10); RED CELL DISTRIBUTION WIDTH 14.3 % (11.6-13.7); WHITE BLOOD COUNT (AUTO) 8.1 K/uL (4.8-10.8)
[2016-08-08 21:56] LABS: ANION GAP 24.1 (8-16); CALCIUM 9.1 mg/dL (8.5-10.1); CHLORIDE 94 mmol/L (98-107); CREATININE 1.2 mg/dL (0.6-1.3); GFR ARICAN-AMERICAN 91 mL/min (>90); GFR NON ARICAN-AMERICAN 75 mL/min (>90); GLUCOSE 381 mg/dL (74-106); POTASSIUM 4.1 mmol/L (3.5-5.1); SODIUM SERUM 132 mmol/L (136-145); UREA NITROGEN, BLOOD 21 mg/dL (7-18)
[2016-08-08 22:02] LABS: ALANINE AMINOTRANSFERASE 132 U/L (12-78); ALBUMIN 3.4 g/dL (3.4-5.0); ALKALINE PHOSPHATASE 145 U/L (46-116); ASPARTATE AMINOTRANSFERASE 47 U/L (15-37); TOTAL BILIRUBIN 0.7 mg/dL (0.0-1.0); TOTAL PROTEIN, SERUM 7.2 g/dL (6.4-8.2)
--- NOTE | 2016-08-08 22:10 | NUR ---
PRE HOUSE SUP PT TO BE HOLD IN ER. Addendum: 08/08/16 at 2307 by MEDRJJ HOUSE SUP CONSTANTINE
[2016-08-08 22:11] LABS: ACETONE, SERUM SMALL (NEGATIVE)
[2016-08-08] MEDS ORDERED: INSULIN HUMAN REGULAR 100 UNITS/ML 10 ML VIAL IVP ONE (22:15)
[2016-08-08] MEDS ORDERED: ALBUTEROL 0.083% 2.5 MG/3 ML NEBU INH PRN (22:25)
[2016-08-08] MEDS ORDERED: ACETAMINOPHEN 325 MG TAB PO PRN (22:25)
[2016-08-08] MEDS ORDERED: MORPHINE SULFATE 2 MG/ML SYR IVP PRN (22:25)
[2016-08-08] MEDS ORDERED: ONDANSETRON 4 MG/2 ML VIAL IVP PRN (22:25)
[2016-08-08] MEDS ORDERED: LORazepam 2 MG/ML VIAL IVP PRN (22:25)
[2016-08-08] MEDS ORDERED: DEXTROSE 50% 50 ML SYR IVP PRN (22:25)
--- NOTE | 2016-08-08 23:07 | NUR ---
PRE HOUSE SUP PT IS TO CONTIUN ON ER HOLD FOR ICU BED. Addendum: 08/08/16 at 2308 by MEDRJJ HOUSE SUP CONSTANTINE
--- NOTE | 2016-08-08 23:30 | NUR ---
SHALONDA SENT WITH PAPERWORK
--- NOTE | 2016-08-08 23:33 | NUR ---
Patient will be admitted to care of DR HERNÁNDEZ. Admited to ICU. Will go to room 1. Belongings list completed. Report to DARRON ALARCON.
[2016-08-08 23:40] VITALS: BP 110/71
--- NOTE | 2016-08-08 23:40 | NUR ---
RECEIVED PATIENT FROM ER VIA [facility] WITH ER CHARGE NURSE ELISABETH ROB AND THERESE EMT AT BEDSIDE. PATIENT IS ALERT, ORIENTED, AND IS ABLE TO SELF AMBULATE FROM ER GURNEY ONTO ICU BED 1. NO SIGNS OF RESPIRATORY DISTRESS OR SOB NOTED. VITALS ARE STABLE. NO REPORTS OF PAIN OR DISCOMFORT AT THIS TIME. THERE IS A #20 IN THE RIGHT HAND. SITE IS DRY AND INTACT. BREATH SOUNDS ARE CLEAR AND BOWEL SOUNDS ARE PRESENT. PLAN OF CARE TONIGHT TO INCLUDE MEDICATION ADMINISTRATION, MONITORING, AND VITAL SIGNS. PATIENT VERBALIZED UNDERSTANDING. MRSA SWAB COLLECTED. HOB AT 30 DEGREES WITH BED IN LOW POSITION. WILL CONTINUE TO MONITOR PATIENT.
[2016-08-08] MEDS: NACL 0.9% 1,000 ML IV SCH (23:43)
[2016-08-09] VITALS (14 sets, daily range): BP systolic 105–130; BP diastolic 61–82
[2016-08-09] MEDS: BLOOD GLUCOSE MONITORING 1 DEV DEV FS SCH ×25 (00:33→23:58)
--- NOTE | 2016-08-09 01:00 | NUR ---
PATIENT RESTING IN BED. NO SIGNS OF DISTRESS OR DISCOMFORT NOTED. HOB AT 30 DEGREES WITH BED IN LOW POSITION. CONTINUE TO MONITOR PATIENT.
[2016-08-09] MEDS: INSULIN HUMAN REGULAR 100 UNITS in NACL 0.9% 100 ML IV SCH ×7 (02:08→23:57)
--- NOTE | 2016-08-09 03:15 | NUR ---
ROUNDED ON PATIENT. NO CHANGES IN CONDITION. BREATHING IS EVEN AND UNLABORED. WILL CONTINUE TO MONITOR PATIENT.
--- NOTE | 2016-08-09 04:40 | NUR ---
PLANISHING HAMMER OPERATOR GÉNESIS AT BEDSIDE FOR SCHEDULED LAB DRAWS.
[2016-08-09 05:34] LABS: BASOPHILS # (AUTO) 0.1 K/uL (0.00-0.22); BASOPHILS % (AUTO) 1.3 % (0.0-2.0); EOSINOPHILS # (AUTO) 0.1 K/uL (0-0.4); EOSINOPHILS % (AUTO) 1.9 % (0.0-4.0); HEMATOCRIT 39.2 % (36-52); HEMOGLOBIN 13.7 g/dL (12.0-18.0); LYMPHOCYTES # (AUTO) 2.6 K/uL (2.0-11.5); LYMPHOCYTES % (AUTO) 35.3 % (20.5-51.1); MEAN CORPUSCULAR HEMOGLOBIN 34 pg (27-31); MEAN CORPUSCULAR HGB CONC 35 g/dL (33-37); MEAN CORPUSCULAR VOLUME 97 fL (80-94); MONOCYTES # (AUTO) 0.5 K/uL (0.8-1.0); MONOCYTES % (AUTO) 6.4 % (1.7-9.3); NEUTROPHILS # (AUTO) 4.2 K/uL (1.8-7.7); NEUTROPHILS % (AUTO) 55.1 % (42.2-75.2); PLATELET COUNT (AUTO) 273 K/uL (140-450); RED BLOOD CELL COUNT(AUTO) 4.05 MIL/uL (4.20-6.10); RED CELL DISTRIBUTION WIDTH 14.2 % (11.6-13.7); WHITE BLOOD COUNT (AUTO) 7.5 K/uL (4.8-10.8)
[2016-08-09] MEDS: NACL 0.9% 1,000 ML IV SCH ×4 (05:46→19:56)
[2016-08-09 05:56] LABS: ALBUMIN 2.9 g/dL (3.4-5.0); ANION GAP 17.8 (8-16); CALCIUM 8.5 mg/dL (8.5-10.1); CARBON DIOXIDE 21.1 mmol/L (21-32); CREATININE 0.9 mg/dL (0.6-1.3); MAGNESIUM 1.7 mg/dL (1.8-2.4); POTASSIUM 3.9 mmol/L (3.5-5.1); TOTAL BILIRUBIN 0.5 mg/dL (0.0-1.0); TOTAL PROTEIN, SERUM 6.1 g/dL (6.4-8.2)
--- NOTE | 2016-08-09 06:15 | NUR ---
IV INFILTRATED AND DISCONTINUED. TIP INTACT. NEW IV INSERTED. #20 IN RIGHT FOREARM. GOOD BLOOD RETURN. CONTINUE TO MONITOR PATIENT.
--- NOTE | 2016-08-09 07:23 | NUR ---
ENDORSED CONTINUITY OF CARE TO EUNICE ROB.
--- NOTE | 2016-08-09 07:30 | NUR ---
RECEIVED PT FROM DORIAN ROB. PT SLEEPING BUT EASILY AWAKEN BY INITIAL ASSESSMENT. BEDSIDE MONITOR SHOWS SR, ROOM AIR, NO S/S OF RESPIRATORY DISTRESS NOTED. IV TO RIGHT HAND #20 RUNNING 0.9 NS AT 150 ML/HR AND NOVOLIN AT 4 UNITS/HR. PT ABLE TO MOVE ALL HIS EXTREMITIES, CALL LIGHT IN REACH, WILL CONTINUE TO MONITOR.
--- NOTE | 2016-08-09 08:47 | NUR ---
PATIENT HAS BEEN SCREENED AND CATEGORIZED HIGH NUTRITION RISK. PATIENT WILL BE SEEN WITHIN 1-2 DAYS OF ADMISSION. 08/09/16-08/10/[address]
--- NOTE | 2016-08-09 09:30 | NUR ---
PT STILL SLEEPING, OFFERED PT BREAKFAST TRAY AGAIN, PT REFUSED. WILL CONTINUE TO MONITOR.
[2016-08-09] MEDS: ENOXAPARIN 40 MG/0.4 ML SYR SUBQ SCH (09:40)
--- NOTE | 2016-08-09 10:00 | NUR ---
PT HAD 100% BREAKFAST TRAY, OFFERED ICE WATER TO PT.
[2016-08-09] MEDS ORDERED: MAG SULF 2000 MG/WATER PREMIX 50 ML IV SCH (10:33)
--- NOTE | 2016-08-09 12:01 | NUR ---
08/09/16 RD INITIAL ASSESSMENT COMPLETED PLEASE REFER TO NUTRITION ASSESSMENT UNDER CARE ACTIVITY FOR ESTIMATED NUTRITIONAL NEEDS. 1. CONTINUE 60 G CONSISTENT CARBOHYDRATE DIET 2. RD TO FOLLOW-UP 2-3 DAYS; HIGH RISK VIDAL WISEM[address] RD
[2016-08-09 12:52] LABS: CALCIUM 8.3 mg/dL (8.5-10.1)
[2016-08-09 12:58] LABS: CARBON DIOXIDE 19.6 mmol/L (21-32); POTASSIUM 4.6 mmol/L (3.5-5.1)
--- NOTE | 2016-08-09 14:05 | NUR ---
PT FINISHED LUNCH TRAY.
--- NOTE | 2016-08-09 14:36 | NUR ---
CM NOTE INITIAL REVIEW SENT TO [facility] F: [phone] PH# [phone] [phone]
--- NOTE | 2016-08-09 15:00 | NUR ---
PT WAS SLEEPING, REFUSED 1500 BLOOD SUGAR CHECK.
--- NOTE | 2016-08-09 16:00 | NUR ---
PT SLEEPING, ENCOURAGED PT TO DRINK SOME ICE WATER PT DID NOT HAVE URINE YET. PT REFUSED TO DRINK WATER.
--- NOTE | 2016-08-09 16:02 | NUR ---
PT BLOOD SUGAR 128, CONTINUE PT ON INSULIN DRIP 1 UNIT/ HR.
[2016-08-09 16:43] LABS: ANION GAP 13.5 (8-16); CALCIUM 7.9 mg/dL (8.5-10.1); CARBON DIOXIDE 25.9 mmol/L (21-32); CREATININE 1.1 mg/dL (0.6-1.3); POTASSIUM 4.4 mmol/L (3.5-5.1)
--- NOTE | 2016-08-09 18:15 | NUR ---
DINNER TRAY SERVED. ENCOURAGED PT TO DRINK MORE WATER.
--- NOTE | 2016-08-09 19:15 | NUR ---
RECEIVED PT ASLEEP;EASILY AROUSABLE.SR ON MONITOR.ON ROOM AIR.NO SOB NOTED.WITH PERIPHERAL IV TO ANIVAL G22 INFUSING ORDERED IVF AND INSULIN DRIP AT 1 UNIT/HR.PT DENIES N/V. PER REPORT PT DID NOT URINATE IN AM SHIFT.BLADDER DISTENDED.PT VERBALIZED HE DOES NOT WANT TO URINATE YET.WILL BLADDER SCAN PT.DENIES PAIN AT THIS TIME.
--- NOTE | 2016-08-09 19:31 | NUR ---
BS 227; INSULIN DRIP INCREASED TO 2 UNITS ORDERED.
[2016-08-09 20:11] LABS: ANION GAP 15.1 (8-16); CALCIUM 7.9 mg/dL (8.5-10.1); CARBON DIOXIDE 23.3 mmol/L (21-32); CREATININE 1.1 mg/dL (0.6-1.3); POTASSIUM 4.4 mmol/L (3.5-5.1)
--- NOTE | 2016-08-09 21:00 | NUR ---
PHONE CALL MADE TO DR ASTUDILLO; NOTIFIED THAT PT DID NOT VOID IN AM SHIFT AND UP TO THIS TIME;WITH DISTENDED BLADDER;ORDERED TO INSERT ELLISON CATHETER. EXPLAINED TO PT THE NEED FOR ELLISON CATHETER INSERTION;PT REFUSED.VERBALLY ABUSIVE.PT DOES NOT WANT ANYBODY INSIDE THE ROOM.
--- NOTE | 2016-08-09 22:10 | NUR ---
PT AWAKE;VOIDED 1000ML OF YELLOW URINE.NO C/O PAIN MADE
[2016-08-10] VITALS (14 sets, daily range): BP systolic 105–132; BP diastolic 60–90
--- NOTE | 2016-08-10 | NUR ---
PT ASLEEP;NO S/SX OF PAIN NOTED/NOT IN RESP DISTRESS.CONTINUED ON INSULIN DRIP 1 UNIT/HR BS 122.WILL CONTINUE TO CLOSELY MONITOR PT
[2016-08-10 00:26] LABS: ANION GAP 14.1 (8-16); CALCIUM 7.8 mg/dL (8.5-10.1); CARBON DIOXIDE 24.6 mmol/L (21-32); CREATININE 0.7 mg/dL (0.6-1.3); POTASSIUM 3.7 mmol/L (3.5-5.1)
[2016-08-10] MEDS: INSULIN HUMAN REGULAR 100 UNITS in NACL 0.9% 100 ML IV SCH ×6 (01:04→06:20)
[2016-08-10] MEDS: BLOOD GLUCOSE MONITORING 1 DEV DEV FS SCH ×24 (01:04→23:03)
--- NOTE | 2016-08-10 02:00 | NUR ---
BS 81; INSULIN DRIP ON HOLD AT THIS TIME ORDERED.PT ASLEEP;EASILY AROUSABLE.NO SOB NOTED
--- NOTE | 2016-08-10 03:00 | NUR ---
BS 201;INSULIN DRIP RESTARTED.PT ASLEEP;NO SIGNS OF DISTRESS.NO PAIN NOTED
--- NOTE | 2016-08-10 04:00 | NUR ---
PT AWAKE;VERBALLY ABUSIVE.VERBALIZED WHY HE IS BEING CHECKED EVERY HOUR.EXPLAINED TO PT THAT HE IS ON INSULIN DRIP AND ACCU CHECK NEEDS TO BE TAKEN EVERY HOUR ORDERED BY .
[2016-08-10 04:13] LABS: BASOPHILS # (AUTO) 0.1 K/uL (0.00-0.22); BASOPHILS % (AUTO) 2.1 % (0.0-2.0); EOSINOPHILS # (AUTO) 0.1 K/uL (0-0.4); EOSINOPHILS % (AUTO) 1.8 % (0.0-4.0); HEMATOCRIT 37.2 % (36-52); HEMOGLOBIN 12.3 g/dL (12.0-18.0); LYMPHOCYTES # (AUTO) 1.4 K/uL (2.0-11.5); MEAN CORPUSCULAR HEMOGLOBIN 32 pg (27-31); MEAN CORPUSCULAR HGB CONC 33 g/dL (33-37); MEAN CORPUSCULAR VOLUME 96 fL (80-94); MONOCYTES # (AUTO) 0.3 K/uL (0.8-1.0); MONOCYTES % (AUTO) 6.2 % (1.7-9.3); NEUTROPHILS # (AUTO) 2.6 K/uL (1.8-7.7); NEUTROPHILS % (AUTO) 58.9 % (42.2-75.2); PLATELET COUNT (AUTO) 226 K/uL (140-450); RED BLOOD CELL COUNT(AUTO) 3.86 MIL/uL (4.20-6.10); RED CELL DISTRIBUTION WIDTH 13.9 % (11.6-13.7); WHITE BLOOD COUNT (AUTO) 4.5 K/uL (4.8-10.8)
[2016-08-10 04:22] LABS: ANION GAP 14.2 (8-16); CALCIUM 7.4 mg/dL (8.5-10.1); CARBON DIOXIDE 23.3 mmol/L (21-32); CREATININE 0.8 mg/dL (0.6-1.3); POTASSIUM 3.5 mmol/L (3.5-5.1)
[2016-08-10 04:25] LABS: MAGNESIUM 1.5 mg/dL (1.8-2.4); PHOSPHORUS 3.6 mg/dL (2.5-4.9)
--- NOTE | 2016-08-10 05:00 | NUR ---
PT VERBALLY ABUSIVE; REFUSED BLOOD SUGAR CHECK.CHARGE NURSE AND NURSE KAYAKING INSTRUCTOR AWARE
--- NOTE | 2016-08-10 07:26 | NUR ---
RECIVED PT ON ROOMAIR BREATH SOUNDS PRESENT BILAT CLEAR PT AWAKE ALERT DID NOT [facility] HHN AT THIS TIME WILL CONTINUE TO MONITOR PT PT IN NO RESP DISTRESS AT THIS TIME
--- NOTE | 2016-08-10 07:30 | NUR ---
RECEIVED REPORT FROM DARRON BARBER. PT IS ALERT AND ORIENTED X4. SLEEPING. NO C/O PAIN. EASILY AROUSABLE. PERRLA NOTED IN BILATERAL EYES. SLIGHT AGGRESSION NOTED WHEN AWOKEN. RECEIVED ON ROOM AIR. ST ON MONITOR. RIGHT UPPER ARM 22 GAUGE NOTED. INTACT AND PATENT. LEFT UPPER ARM 20 GAUGE NOTED. INTACT AND PATENT. SKIN INTACT. SAFETY PRECAUTION MAINTAINED. BED AT LOWEST SETTINGS. CALL LIGHT WITHIN REACH. WILL CONTINUE TO MONITOR FOR CHANGES
[2016-08-10] MEDS: NACL 0.9% 1,000 ML IV SCH ×3 (07:44→14:24)
[2016-08-10] MEDS: ENOXAPARIN 40 MG/0.4 ML SYR SUBQ SCH (08:10)
--- NOTE | 2016-08-10 09:00 | NUR ---
MEDICATION GIVEN PER ORDER. TOLERATED WELL
[2016-08-10 09:19] LABS: ANION GAP 12.5 (8-16); CALCIUM 7.4 mg/dL (8.5-10.1); CARBON DIOXIDE 23.9 mmol/L (21-32); CREATININE 0.6 mg/dL (0.6-1.3); POTASSIUM 3.4 mmol/L (3.5-5.1)
--- NOTE | 2016-08-10 12:00 | NUR ---
PT UP AND EATING. TOLERATING DIET. NO C/O PAIN. CALL LIGHT WITHIN REACH. WILL CONTINUE TO MONITOR.
[2016-08-10 12:25] LABS: ANION GAP 14.8 (8-16); CALCIUM 7.8 mg/dL (8.5-10.1); CARBON DIOXIDE 22.6 mmol/L (21-32); CREATININE 0.6 mg/dL (0.6-1.3); POTASSIUM 4.4 mmol/L (3.5-5.1)
--- NOTE | 2016-08-10 12:45 | NUR ---
CM NOTE SPOKE WITH [facility] NICKOLAS SILVESTRE PH [phone] AND GAVE HER A VERBAL CLINICAL UPDATE ON THE PATIENT
--- NOTE | 2016-08-10 14:39 | NUR ---
DR. HERNÁNDEZ AT BEDSIDE TO SEE PT. WILL F/U WITH NEW ORDERS
[2016-08-10] MEDS ORDERED: INSULIN HUMAN REGULAR 100 UNITS in NACL 0.9% 100 ML IV SCH ×2 (14:45→16:45)
[2016-08-10] MEDS ORDERED: MAG SULF 2000 MG/WATER PREMIX 50 ML IV SCH (15:00)
[2016-08-10] MEDS: DEXT 5% /NACL 0.9% 1,000 ML IV SCH ×2 (15:25)
--- NOTE | 2016-08-10 16:00 | NUR ---
NEW INSTRUCTION ON INSULIN DRIP RECEIVED FROM DR. HERNÁNDEZ. PHARMACY STATED NEEDING WRITTEN INSTRUCTION PRIOR TO CHANGING PROTOCOL. ATTEMPTED TO CALL MD. WILL AWAIT FOR CALL BACK.
--- NOTE | 2016-08-10 16:30 | NUR ---
CLARIFY ORDER WITH DR. HERNÁNDEZ. PHARMACIST PASCUAL AT SIDE TO CONFIRM
--- NOTE | 2016-08-10 17:00 | NUR ---
RIGHT UPPER ARM APPEARS TO BE SWOLLEN. PT C/O PAIN AT THE SITE. DECLINES MEDICATION. IV FLUSHES WELL. CHANGE INFUSION TO OTHER ARM. RIGHT ARM ELEVATED. WARM COMPRESS APPLIED. WILL CONTINUE TO MONITOR. Addendum: 08/10/16 at 1919 by Shaquille Aggarwal RN LEFT UPPER ARM APPEARS SWOLLEN. RIGHT UPPER ARM IS NORMAL
[2016-08-10 18:35] LABS: ANION GAP 9.4 (8-16); CALCIUM 7.5 mg/dL (8.5-10.1); CARBON DIOXIDE 27.3 mmol/L (21-32); CREATININE 0.7 mg/dL (0.6-1.3); POTASSIUM 3.7 mmol/L (3.5-5.1)
--- NOTE | 2016-08-10 19:22 | NUR ---
ENDORSED CARE TO SONNY RN. PT IS STABLE. SAFETY PRECAUTION MET. CALL LIGHT WITHIN REACH. BED AT LOWEST SETTING.
--- NOTE | 2016-08-10 19:23 | NUR ---
RECEIVED REPORT FROM DARRON BARBER. AND PATRICK RN. AT BEDSIDE, PT IS AAOX4, ABLE TO FOLLOW COMMANDS AND MAKE NEEDS KNOWN, VSS, DENIES PAIN, NO S/S OF SOB/DISTRESS, CLEAR LUNG SOUNDS, ON RA, SR ON CRUSHED STONE GRADER, PERIPHERAL IV SITE TO RIGHT UPPER ARM 22GA, PATENT, RUNNING D5 NS AT 125ML/HR AND INSULIN DRIP AT 4 UNITS. IV SITE TO LEFT UPPER ARM, PATENT, SL. CONTINENT WITH B&B'S, AFEBRILE, SKIN IS INTACT, WARM AND DRY TO TOUCH. ABLE TO MOVE ALL EXTREMITIES. EXPLAINED POC TO PT, PT VERBALIZED UNDERSTANDING, SAFETY MEASURE IN PLACE WITH BED IN LOW POSITION, CALL LIGHT WITHIN REACH, WILL CONTINUE TO MONITOR.
[2016-08-10 20:48] LABS: ANION GAP 9.1 (8-16); CALCIUM 7.4 mg/dL (8.5-10.1); CARBON DIOXIDE 28.3 mmol/L (21-32); CREATININE 0.6 mg/dL (0.6-1.3); POTASSIUM 3.4 mmol/L (3.5-5.1)
--- NOTE | 2016-08-10 22:00 | NUR ---
VSS, NO CHANGE OF CONDITION AT THIS TIME, ACCU CHECK WITH RESULT OF 144MG, STILL ON INSULIN DRIP ORDERED. OFFERED TO FIFI ANTONIO, PT REFUSED, RISK AND BENEFIT EXPLAINED, PT STATED, "CHANGE IN THE MORNING."
[2016-08-11] VITALS: BP 110/76
--- NOTE | 2016-08-11 | NUR ---
NO CHANGE OF CONDITION AT THIS TIME, VSS.
[2016-08-11] MEDS: BLOOD GLUCOSE MONITORING 1 DEV DEV FS SCH ×3 (00:11→12:13)
[2016-08-11 00:24] LABS: ANION GAP 7.1 (8-16); CALCIUM 7.7 mg/dL (8.5-10.1); CARBON DIOXIDE 29.1 mmol/L (21-32); CREATININE 0.5 mg/dL (0.6-1.3); POTASSIUM 3.2 mmol/L (3.5-5.1)
[2016-08-11] MEDS ORDERED: KCL 20 MEQ/WATER INJ PREMIX 200 ML IV SCH (00:45)
[2016-08-11] MEDS ORDERED: INSULIN DETEMIR 100 UNITS/ML 10 ML VIAL SUBQ SCH ×2 (00:45→21:00)
[2016-08-11] MEDS ORDERED: DEXTROSE 50% 50 ML SYR IVP PRN (01:00)
--- NOTE | 2016-08-11 01:00 | NUR ---
ANION CAP RESULT WAS <12 X3 TIMES, D/C BMP AND INSULIN DRIP ORDERED, PT'S POTASSIUM LEVEL 3.2, ACCU CHECK WITH BG 109MG/DL. Cat COOPER NOTIFIED ABOUT PT'S CURRENTLY CONDITION, OBTAINED NEW ORDERS, AND CARRIED OUT.
--- NOTE | 2016-08-11 01:30 | NUR ---
INFORMED PT ABOUT K-RIDER ORDER, PT REFUSED AT THIS TIME, WILL TRY TO ENCOURAGE AND OFFER IT LATER.
[2016-08-11] MEDS: DEXT 5% /NACL 0.9% 1,000 ML IV SCH (01:34)
[2016-08-11 02:00] VITALS: BP 116/76
--- NOTE | 2016-08-11 02:00 | NUR ---
VSS. PT IS WATCHING TV, NO S/S OF DISTRESS.
[2016-08-11 04:00] VITALS: BP 112/74
--- NOTE | 2016-08-11 04:00 | NUR ---
OFFERED AM CARE, PT REFUSED, NO CHANGE OF CONDITION AT THIS TIME, VSS.
[2016-08-11 04:53] LABS: BASOPHILS # (AUTO) 0.1 K/uL (0.00-0.22); BASOPHILS % (AUTO) 1.8 % (0.0-2.0); EOSINOPHILS # (AUTO) 0.1 K/uL (0-0.4); EOSINOPHILS % (AUTO) 1.7 % (0.0-4.0); HEMATOCRIT 36.9 % (36-52); HEMOGLOBIN 12.5 g/dL (12.0-18.0); LYMPHOCYTES # (AUTO) 1.6 K/uL (2.0-11.5); LYMPHOCYTES % (AUTO) 41.5 % (20.5-51.1); MEAN CORPUSCULAR HEMOGLOBIN 33 pg (27-31); MEAN CORPUSCULAR HGB CONC 34 g/dL (33-37); MEAN CORPUSCULAR VOLUME 96 fL (80-94); MONOCYTES # (AUTO) 0.3 K/uL (0.8-1.0); MONOCYTES % (AUTO) 7.6 % (1.7-9.3); NEUTROPHILS # (AUTO) 1.8 K/uL (1.8-7.7); NEUTROPHILS % (AUTO) 47.4 % (42.2-75.2); PLATELET COUNT (AUTO) 202 K/uL (140-450); RED BLOOD CELL COUNT(AUTO) 3.84 MIL/uL (4.20-6.10); RED CELL DISTRIBUTION WIDTH 13.9 % (11.6-13.7); WHITE BLOOD COUNT (AUTO) 3.9 K/uL (4.8-10.8)
[2016-08-11 05:48] LABS: MAGNESIUM 1.8 mg/dL (1.8-2.4); PHOSPHORUS 3.1 mg/dL (2.5-4.9)
[2016-08-11 06:00] VITALS: BP 118/78
--- NOTE | 2016-08-11 06:15 | NUR ---
TRIED AND EXPLAINED TO PT REGARDING THE K-RIDER IV MEDICATION, PT REFUSED AGAIN, STATED, " GIVE ME THE ORAL PILLS, I WILL NOT TAKE THE IV ONE, IT IS GOING TO MAKE ME HURT!" PAGED DR. CALIX, WAITING FOR CALLING BACK, AND ENDORSE TO AM SHIFT FOR FOLLOW UP WITH .
--- NOTE | 2016-08-11 06:28 | NUR ---
SPOKE WITH DR. MOLLY CALIX, INFORMED THAT INSULIN DRIP WAS OFF AFTER 12 MN LAST NIGHT, ASKED IF PATIENT CAN BE TRANSFERRED TO THE FLOOR, ORDER OBTAINED TO TRANSFER PATIENT TO TELEMETRY. PATIENT INFORMED.
--- NOTE | 2016-08-11 07:10 | NUR ---
REPORT GIVEN TO DARRON BARBER AT BEDSIDE FOR CONTINUE OF CARE, PT IS IN STABLE CONDITION AT THIS TIME.
--- NOTE | 2016-08-11 07:25 | NUR ---
SPOKE WITH DR. HERNÁNDEZ AND UPDATES GIVEN ON PATIENT'S CONDITION, INSULIN DRIP OFF AFTER 12MN AFTER 3 CONSECUTIVE ANION GAP LESS THAN 12. DR. CALIX GAVE ORDERS FOR ACCUCHECK ACHS WITH HUMALOG INSULIN SLIDING SCALE, LANTUS INSULIN QHS. DR. CALIX ORDERED ALSO KRIDER 40 MEQ IV FOR K+ LEVEL OF 3.2 BUT PATIENT REFUSED IV AND WANTED PO. OBTAINED ORDER FROM DR. CALIX TO TRANFER PATIENT TO TELEMETRY AT 0630. DR. HERNÁNDEZ OK WITH ALL THE ORDERS GIVEN BY DR. CALIX. OBTAINED ORDER FROM DR. HERNÁNDEZ TO GIVE 40 MEQ PO ONCE.
[2016-08-11] MEDS ORDERED: INSULIN LISPRO SLIDING SCALE 100 UNITS/ML VIAL SUBQ PRN (07:30)
[2016-08-11] MEDS ORDERED: POTASSIUM CHLORIDE 10 MEQ TABER PO SCH (07:30)
--- NOTE | 2016-08-11 07:50 | NUR ---
HANDOFF REPORT GIVEN TO DARRON BENSON. PT TRANSFERRED TO TELEMETRY RM 107B. ALL BELONGINGS WITH PT. PT TRANSPORTED IN STABLE CONDITION.
--- NOTE | 2016-08-11 07:50 | NUR ---
PATIENT RECEIVED FROM ICU. PATIENT AWAKE, ALERT AND ORIENTED. NO S/S OF DISTRESS NOTED. PATIENT BREATHING ON ROOM AIR. NO C/O PAIN AT THIS TIME. IV LINE NOTED TO THE RIGHT UPPER ARM WITH IVF INFUSING WELL. PATIENT ON TELE MONITORING. BED LOWERED WITH CALL LIGHT WITHIN REACH. WILL CONTINUE TO MONITOR
[2016-08-11 08:00] VITALS: BP 108/72
--- NOTE | 2016-08-11 08:15 | NUR ---
FAXED CONCURRENT REVIEW TO [facility] [phone] PHONE NIRMALA [phone]
[2016-08-11] MEDS: ENOXAPARIN 40 MG/0.4 ML SYR SUBQ SCH (10:12)
--- NOTE | 2016-08-11 11:30 | NUR ---
PATIENT AMBULATED AROUND THE UNIT. NO S/S OF DISTRESS NOTED
[2016-08-11 12:00] VITALS: BP 129/81
--- NOTE | 2016-08-11 12:39 | NUR ---
08/11/16 RD FOLLOW-UP ASSESSMENT COMPLETED PLEASE REFER TO NUTRITION ASSESSMENT UNDER CARE ACTIVITY FOR ESTIMATED NUTRITIONAL NEEDS. 1. CONTINUE 60 G CONSISTENT CARBOHYDRATE DIET 2. RD TO FOLLOW-UP 3-5 DAYS; MODERATE RISK VIDAL WISEMAN RD
--- NOTE | 2016-08-11 13:20 | NUR ---
PATIENT ASLEEP IN BED. NO S/S OF DISTRESS NOTED
--- NOTE | 2016-08-11 15:45 | NUR ---
PATIENT DISCHARGED TO HOME. DISCHARGE PRESCRIPTIONS AND DISCHARGE INSTRUCTIONS GIVEN. PATIENT VERBALIZED UNDERSTANDING. IV LINE DISCONTINUED. TELE LEADS TAKEN OFF. PATIENT PROVIDED WITH HOMELESS RESOURCES AND BUS PASS. PATIENT SIGNED ALL OF HIS DISCHARGE PAPERS. PATIENT LEFT WITH ALL OF HIS BELONGINGS AND DISCHARGE PAPERS. PATIENT LEFT IN STABLE CONDITION
== END 2016-08-11 15:45 | disposition home or self-care (01) | DRG 420 ==
LOC: MED 20:50 → MIC 22:29 → MTU 08-11 08:07
PROVIDERS: ADMIT Internal Medicine Pulmonary Disease; ATTEND Internal Medicine Pulmonary Disease
DX: E10.10 Type 1 diabetes mellitus with ketoacidosis without coma (principal); E44.1 Mild protein-calorie malnutrition; E83.42 Hypomagnesemia; J45.909 Unspecified asthma, uncomplicated; Z87.898 Personal history of other specified conditions; Z59.0 Homelessness
CPT/HCPCS: 36415; 80048; 80053; 82009; 82948; 83735; 84100; 85025; 87040; 87081; 96361; 96374; 96375; 99285; J1650; J1815; J1885; J2405; J3475; J3480; J7030; J7042; J7613

== ENCOUNTER 2016-08-20 12:00 | Inpatient (IN) | payer OTHER ==
[~2016-08-20] VITALS: Ht 175.3 cm; Wt 63.0 kg
--- NOTE | 2016-08-20 12:00 | NUR ---
Patient BIBA ACLS, triage by RN. Waiting for an available bed.
[2016-08-20 12:09] VITALS: BP 137/74
--- NOTE | 2016-08-20 12:17 | NUR ---
YAMIL READ "HIGH"; ER MD DR. LYMAN NOTIFIED.
--- NOTE | 2016-08-20 13:19 | NUR ---
PT TAKEN TO BED 4 AT THIS TIME.
--- NOTE | 2016-08-20 13:22 | NUR ---
30M BIBA FROM [facility] ON FLOOR C/O HIGH BLOOD SUGAR; PT AA&OX4 AT THIS TIME; PERRLA; PT NOTED W/ TACHYCARDIA ON THE MONITOR; BL LUNG SOUNDS CLEAR, RR EVEN/UNLABORED, PT NOTED W/ SMALL, RED SPOTS TO BL SHINS; PT STATES NO PAIN, NAUSEA, VOMITING, DIARRHEA AT THIS TIME; STATES " I'M DEHYDRATED"; SKIN IS WARM/DRY/INTACT AT THIS TIME; PT RESTING IN BED W/ HOB ELEVATED AND IN LOWEST POSITION; POSITIONED FOR COMFORT; ER MD MADE AWARE OF STATUS. WILL CONTINUE TO MONITOR.
--- NOTE | 2016-08-20 13:50 | NUR ---
XRAY AT BEDSIDE.
[2016-08-20] MEDS: NACL 0.9% 1,000 ML IV SCH ×6 (13:52→23:18)
[2016-08-20] MEDS ORDERED: INSULIN HUMAN REGULAR 100 UNITS/ML 10 ML VIAL IVP ONE ×4 (14:00→16:05)
[2016-08-20 14:14] LABS: BASOPHILS # (AUTO) 0.1 K/uL (0.00-0.22); BASOPHILS % (AUTO) 1.5 % (0.0-2.0); EOSINOPHILS # (AUTO) 0.1 K/uL (0-0.4); EOSINOPHILS % (AUTO) 1.3 % (0.0-4.0); HEMATOCRIT 42.3 % (36-52); HEMOGLOBIN 14.3 g/dL (12.0-18.0); LYMPHOCYTES # (AUTO) 1.5 K/uL (2.0-11.5); LYMPHOCYTES % (AUTO) 16.1 % (20.5-51.1); MEAN CORPUSCULAR HEMOGLOBIN 33 pg (27-31); MEAN CORPUSCULAR HGB CONC 34 g/dL (33-37); MEAN CORPUSCULAR VOLUME 98 fL (80-94); MONOCYTES # (AUTO) 0.5 K/uL (0.8-1.0); MONOCYTES % (AUTO) 4.9 % (1.7-9.3); NEUTROPHILS # (AUTO) 7.1 K/uL (1.8-7.7); NEUTROPHILS % (AUTO) 76.2 % (42.2-75.2); PLATELET COUNT (AUTO) 416 K/uL (140-450); RED BLOOD CELL COUNT(AUTO) 4.33 MIL/uL (4.20-6.10); RED CELL DISTRIBUTION WIDTH 13.5 % (11.6-13.7); WHITE BLOOD COUNT (AUTO) 9.3 K/uL (4.8-10.8)
[2016-08-20] MEDS ORDERED: NACL 0.9% 2,000 ML IV ONE (14:35)
--- NOTE | 2016-08-20 14:35 | NUR ---
PT APPEARS TO BE RESTING COMFORTABLY IN BED; STATES NO ACUTE DISTRESS AT THIS TIME; RR EVEN/UNLABORED, WILL CONTINUE TO MONITOR.
[2016-08-20 14:37] LABS: APPEARANCE,URINE CLEAR (CLEAR); BILIRUBIN,URINE NEGATIVE (NEGATIVE); BLOOD, URINE NEGATIVE (NEGATIVE); COLOR,URINE YELLOW (YELLOW); LEUKOCYTE ESTERASE ,URINE NEGATIVE (NEGATIVE); NITRITE, URINE NEGATIVE (NEGATIVE); PH,URINE 5.5 (5.0-9.0); PROTEIN,URINE NEGATIVE (NEGATIVE); UGLUCOSE 3+ (NEGATIVE); UROBILINOGEN,URINE 0.2 EU/dL (0.2 - 1)
[2016-08-20 14:38] LABS: ALBUMIN 3.5 g/dL (3.4-5.0); ANION GAP 31.7 (8-16); CALCIUM 8.1 mg/dL (8.5-10.1); CARBON DIOXIDE 10.5 mmol/L (21-32); INR 0.9 (0.8-1.2); PARTIAL THROMBOPLASTIN TIME 21.1 secs (22-35.6); POTASSIUM 5.2 mmol/L (3.5-5.1); PROTHROMBIN TIME 9.3 secs (10.8-13.4); TOTAL BILIRUBIN 1.2 mg/dL (0.0-1.0)
[2016-08-20 14:44] LABS: BACTERIA,URINE None Seen /HPF (None Seen); RBC,URINE NONE SEEN /HPF (0-5); SQUAMOUS EPITHELIAL CELL,UR 0-3 (FEW) /LPF (0-3 (FEW)); WBC,URINE NONE SEEN /HPF (0-5)
--- NOTE | 2016-08-20 15:46 | NUR ---
PT APPEARS TO BE SLEEPING COMFORTABLY IN BED; POSITIONED FOR COMFORT; RR EVEN/UNLABORED, WILL CONTINUE TO MONITOR.
--- NOTE | 2016-08-20 15:57 | NUR ---
PT BLOOD SUGAR 384 AT THIS TIME; ER MD DR. LYMAN NOTIFIED; PT APPEARS TO BE RESTING COMFORTABLY IN BED; VSS; WILL CONTINUE TO MONITOR.
[2016-08-20] MEDS ORDERED: ALBUTEROL 0.083% 2.5 MG/3 ML NEBU INH PRN (16:20)
[2016-08-20] MEDS ORDERED: LORazepam 2 MG/ML VIAL IVP PRN (16:20)
[2016-08-20] MEDS: BLOOD GLUCOSE MONITORING 1 DEV DEV FS SCH ×8 (16:20→23:18)
[2016-08-20] MEDS ORDERED: ONDANSETRON 4 MG/2 ML VIAL IVP PRN (16:20)
[2016-08-20] MEDS ORDERED: DEXTROSE 50% 50 ML SYR IVP PRN (16:20)
[2016-08-20] MEDS ORDERED: HYDROcodone/APAP 5/325 MG 1 TAB TAB PO PRN (16:20)
[2016-08-20] MEDS ORDERED: ACETAMINOPHEN 325 MG TAB PO PRN (16:20)
[2016-08-20] MEDS ORDERED: MORPHINE SULFATE 2 MG/ML SYR IVP PRN (16:20)
--- NOTE | 2016-08-20 16:31 | NUR ---
PT APPEARS TO BE SLEEPING COMFORTABLY IN BED; POSITIONED FOR COMFORT; RR EVEN/UNLABORED, WILL CONTINUE TO MONITOR.
--- NOTE | 2016-08-20 16:45 | NUR ---
RECEIVED REPORT FROM [facility] ED RN. AWAITING ARRIVAL OF PT TO UNIT
--- NOTE | 2016-08-20 17:01 | NUR ---
REPORT GIVEN TO DARRON NGUYEN.
--- NOTE | 2016-08-20 17:09 | NUR ---
Patient will be admitted to care of DR. ALONZO. Admited to ICU. Will go to room ICU 2. Belongings list completed. Report to DARRON NGUYEN.
--- NOTE | 2016-08-20 17:20 | NUR ---
PT ARRIVED VIA GURNEY WITH RN AND EMT AT BEDSIDE. AMBULATED TO BED WITH STEADY GAIT. PT ALERT AND ORIENTED X4. NO C/O PAIN OR DISCOMFORT. PT ON RA SATURATING AT 99%. ST ON MONITOR. SKIN IS INTACT. RASH NOTED ON BILATERAL LOWER EXTREMITIES. PT STATED HAS BEEN PRESENT FOR AWHILE. NO DISCOMFORT REPORTED. IV ON R AC 16 GAUGE. INTACT AND PATENT. BG CHECKED. WILL START INSULIN DRIP ORDERED. ALL BELONGING WITH PATIENT. SECURITY AT BEDSIDE TO CHECK BELONGINGS. MRSA SWAB OBTAINED. PT ORIENTED TO ROOM. SAFETY PRECAUTION IN PLACE. BP 135/70, P 106, O2 99%, RR 14, 98.9 F. ADMISSION ASSESSMENT COMPLETE. CALL LIGHT WITHIN REACH. WILL CONTINUE TO MONITOR.
[2016-08-20] MEDS: INSULIN HUMAN REGULAR 100 UNITS in NACL 0.9% 100 ML IV SCH (17:28)
--- NOTE | 2016-08-20 17:56 | NUR ---
SECURITY REMOVED A PIPE AND A METAL SHARP FROM PT'S BELONGINGS.
[2016-08-20 18:00] VITALS: BP 125/76
--- NOTE | 2016-08-20 19:28 | NUR ---
PT ENDORSED TO DARRON DENNIS AND DARRON MAJOR. PT IS STABLE.
--- NOTE | 2016-08-20 19:30 | NUR ---
RECEIVED REPORT FROM ELISABETH RN AND PATRICK RN AT BEDSIDE, PT IS AAOX4, ABLE TO FOLLOW COMMANDS AND MAKE NEEDS KNOWN. VSS, DENIES PAIN, NO S/S OF SOB/DISTRESS, CLEAR LUNG SOUND, ON RA, DENIES CHEST PAIN, ST ON COUNTER WAITRESS/WAITER. SOFT ABDOMEN WITH ACTIVE BOWEL SOUNDS, CONTINENT WITH B&B'S, ABLE TO MOVE ALL EXTREMITIES. AFEBRILE, SKIN IS INTACT, WARM AND DRY TO TOUCH, RED SPOTS RASHES NOTED TO BLE. IV SITE TO RIGHT AC 16GA RUNNING NS AT 150ML/HR. EXPLAINED PLAN OF CARE TO PT, PT VERBALIZED UNDERSTANDING, SAFETY MEASURES IN PLACE, CALL LIGHT WITHIN REACH, WILL CONTINUE TO MONITOR.
[2016-08-20 20:00] VITALS: BP 130/87
--- NOTE | 2016-08-20 21:00 | NUR ---
SCHEDULED MEDICATION GIVEN, PT TOLERATED WELL. PT STILL ON INSULIN DRIP, VSS.
[2016-08-20 22:00] VITALS: BP 122/73
--- NOTE | 2016-08-20 22:00 | NUR ---
PT IS ASLEEP IN BED, NO CHANGE OF CONDITION AT THIS TIME. VSS.
[2016-08-21] VITALS (11 sets, daily range): BP systolic 110–132; BP diastolic 66–83
--- NOTE | 2016-08-21 | NUR ---
NO CHANGE OF CONDITION, STILL ON INSULIN DRIP, BS LEVEL CONTROLLED BETWEEN 150-199 AT THIS TIME, VSS.
[2016-08-21] MEDS: BLOOD GLUCOSE MONITORING 1 DEV DEV FS SCH ×18 (00:34→20:47)
--- NOTE | 2016-08-21 02:00 | NUR ---
PT IS ASLEEP, NO CALIX OF CONDITION AT THIS TIME, VSS.
--- NOTE | 2016-08-21 04:00 | NUR ---
AM CARE OFFERED, PT REFUSED, RISK AND BENEFIT EXPLAINED, PT STILL REFUSED. VSS.
[2016-08-21 05:07] LABS: BASOPHILS # (AUTO) 0.1 K/uL (0.00-0.22); BASOPHILS % (AUTO) 1.8 % (0.0-2.0); EOSINOPHILS # (AUTO) 0.1 K/uL (0-0.4); EOSINOPHILS % (AUTO) 1.9 % (0.0-4.0); HEMATOCRIT 38.1 % (36-52); HEMOGLOBIN 12.9 g/dL (12.0-18.0); LYMPHOCYTES # (AUTO) 2.3 K/uL (2.0-11.5); LYMPHOCYTES % (AUTO) 32.2 % (20.5-51.1); MEAN CORPUSCULAR HEMOGLOBIN 33 pg (27-31); MEAN CORPUSCULAR HGB CONC 34 g/dL (33-37); MEAN CORPUSCULAR VOLUME 97 fL (80-94); MONOCYTES # (AUTO) 0.4 K/uL (0.8-1.0); MONOCYTES % (AUTO) 5.6 % (1.7-9.3); NEUTROPHILS # (AUTO) 4.2 K/uL (1.8-7.7); NEUTROPHILS % (AUTO) 58.5 % (42.2-75.2); PLATELET COUNT (AUTO) 362 K/uL (140-450); RED BLOOD CELL COUNT(AUTO) 3.92 MIL/uL (4.20-6.10); RED CELL DISTRIBUTION WIDTH 13.4 % (11.6-13.7); WHITE BLOOD COUNT (AUTO) 7.1 K/uL (4.8-10.8)
[2016-08-21] MEDS: NACL 0.9% 1,000 ML IV SCH ×3 (06:03→21:07)
[2016-08-21 06:49] LABS: MAGNESIUM 1.7 mg/dL (1.8-2.4); PHOSPHORUS 3.3 mg/dL (2.5-4.9)
[2016-08-21 06:53] LABS: ANION GAP 14.7 (8-16); CALCIUM 7.8 mg/dL (8.5-10.1); CARBON DIOXIDE 21.1 mmol/L (21-32); CREATININE 0.8 mg/dL (0.6-1.3); POTASSIUM 3.8 mmol/L (3.5-5.1)
--- NOTE | 2016-08-21 07:10 | NUR ---
REPORT GIVEN TO DARRON DAWSON AT BEDSIDE FOR CONTINUE OF CARE, PT IS IN STABLE CONDITION AT THIS TIME.
--- NOTE | 2016-08-21 07:30 | NUR ---
RECEIVED REPORT FROM SONNY ROB. PT SLEEPING BUT EASILY AWAKING WITH INITIAL ASSESSMENT. BEDSIDE MONITOR SHOWS SR. ON ROOM AIR, NO S/S OF RESPIRATORY DISTRESS NOTED. ABDOMEN SOFT WITH ACTIVE BOWEL SOUNDS. IV TO RIGHT AC # 16 RUNNING 150ML/HR. 0720 BLOOD SUGAR CHECKED 69, STOP INSULIN DRIP PER MD ORDER. POC DISCUSSED WITH PT. PT VERBALIZED UNDERSTANDING. OFFERED PT URINAL, PT STATED HE JUST WANT TO SLEEP. HOB ELEVATED 30 DEGREES WITH LOW BED POSITION, CALL LIGHT IN REACH, WILL CONTINUE TO MONITOR.
--- NOTE | 2016-08-21 08:54 | NUR ---
PATIENT HAS BEEN SCREENED AND CATEGORIZED HIGH NUTRITION RISK. PATIENT WILL BE SEEN WITHIN 1-2 DAYS OF ADMISSION. 08/20/16-08/21/[address]
[2016-08-21] MEDS: PANTOPRAZOLE 40 MG INJ VIAL IVP SCH (08:56)
--- NOTE | 2016-08-21 09:20 | NUR ---
BLOOD SUGAR CHECKED 410 AT 0911. RESTARTED INSULIN DRIP AT 5 UNITS/ HR AND NOTIFIED DR. PROCTOR, NO NEW ORDER RECEIVED YET.
--- NOTE | 2016-08-21 11:21 | NUR ---
PT SLEEPING, OFFERED ICE WATER TO PT, PT REFUSED.
--- NOTE | 2016-08-21 12:25 | NUR ---
08/21/16 RD INITIAL ASSESSMENT COMPLETED PLEASE REFER TO NUTRITION ASSESSMENT UNDER CARE ACTIVITY FOR ESTIMATED NUTRITIONAL NEEDS. 1. CONTINUE 60 G CONSISTENT CARBOHYDRATE DIET 2. RD TO FOLLOW-UP 2-3 DAYS; HIGH RISK VIDAL WISEMAN RD
--- NOTE | 2016-08-21 12:30 | NUR ---
DR. PROCTOR IN TO SEE PT. WILL FOLLOW UP.
--- NOTE | 2016-08-21 12:35 | NUR ---
PER DR. PROCTOR, CALL HIM IF PT HAS TWO CONSECUTIVE BS VALUES LESS THAN 150 MG/DL.
--- NOTE | 2016-08-21 12:55 | NUR ---
INITIAL CLINICAL REVIEW FAXED TO [facility] AT [phone]
--- NOTE | 2016-08-21 14:11 | NUR ---
PT HAD 1900 CLEAR YELLOW URINE OUTPUT.
[2016-08-21] MEDS: INSULIN HUMAN REGULAR 100 UNITS in NACL 0.9% 100 ML IV SCH (15:34)
--- NOTE | 2016-08-21 15:34 | NUR ---
REPLACED NOVOLIN R DRIP BAG PER PHARMACY.
--- NOTE | 2016-08-21 16:20 | NUR ---
PT REFUSED BLOOD SUGAR MONITORING. RISKS AND BENEFITS EXPLAINED. PT STILL REFUSED. PT STATED "YOU HAVE BEEN CHECKING MY BLOOD SUGAR ALL DAY, JUST LEAVE MY ALONE, DON'T TOUCH ME. I NEED TO SLEEP." PT ALSO USES LOTS OF "F" WORDS. CHARGE NURSE AWARE. DR. PROCTOR AWARE.
[2016-08-21] MEDS ORDERED: DEXTROSE 50% 50 ML SYR IVP PRN ×2 (16:45→16:55)
[2016-08-21] MEDS ORDERED: INSULIN DETEMIR 100 UNITS/ML 10 ML VIAL SUBQ SCH (17:00)
[2016-08-21] MEDS ORDERED: INSULIN LISPRO 100 UNITS/ML VIAL SUBQ SCH (17:00)
--- NOTE | 2016-08-21 17:33 | NUR ---
DINNER TRAY SERVED. PT ATE 100%.
--- NOTE | 2016-08-21 17:50 | NUR ---
TRANSFERRED PT TO TELE 110B. PT AWAKE, ALERT, AND ORIENTED. VSS. ALL PERSONAL BELONGINGS WITH PT. REPORT GIVEN TO BRANDON CHARGE NURSE.
--- NOTE | 2016-08-21 18:44 | NUR ---
PT AWAKE,ALERT AND RESPONSIVE, NO S/S OF ACUTE DISTRESS. WILL ENDORSE TO ONCOMING EXTRUSION MACHINE OPERATOR NURSE FOR CONTINUITY OF CARE.
--- NOTE | 2016-08-21 20:00 | NUR ---
RECEIVED ASLEEP BUT EASILY AROUSABLE. AFEBRILE, NOT IN ACUTE DISTRESS. NO PAIN OR DISCOMFORT NOTED. WITH IV FLUID NS INFUSING @ 150 ML/HR VIA RIGHT AC #16 IV LINE. SAO2=96% ON ROOM AIR. SINUS RHYTHM @ 90'S/MINUTE ON THE MONITOR. VS STABLE, WILL CONTINUE TO MONITOR. NEEDS ATTENDED.
[2016-08-21] MEDS ORDERED: BLOOD GLUCOSE MONITORING 1 DEV DEV FS SCH (21:00)
[2016-08-21] MEDS: INSULIN LISPRO SLIDING SCALE 100 UNITS/ML VIAL SUBQ PRN (21:09)
--- NOTE | 2016-08-21 21:09 | NUR ---
8 UNITS OF HUMALOG SQ GIVEN FOR BLOOD GLUCOSE OF 332 PER SLIDING SCALE. OTHER DUE MEDICATION GIVEN SCHEDULED.
[2016-08-22] VITALS: BP 100/79
--- NOTE | 2016-08-22 | NUR ---
ASLEEP, NOT IN ANY KIND OF DISTRESS. MO PAIN OR DISCOMFORT NOTED. SIDE RAILS UP, CALL LIGHT WITHIN REACH. KEPT WARM AND COMFORTABLE. VS REMAIN STABLE. WILL CONTINUE TO MONITOR. NEEDS ATTENDED.
[2016-08-22 04:00] VITALS: BP 115/77
[2016-08-22] MEDS: NACL 0.9% 1,000 ML IV SCH ×2 (04:26→08:20)
[2016-08-22] MEDS: BLOOD GLUCOSE MONITORING 1 DEV DEV FS SCH (06:08)
[2016-08-22] MEDS: INSULIN LISPRO SLIDING SCALE 100 UNITS/ML VIAL SUBQ PRN (06:15)
--- NOTE | 2016-08-22 06:15 | NUR ---
HUMALOG 8 UNITS SQ GIVEN FOR CAPILLARY BLOOD GLUCOSE OF 317 PER SLIDING SCALE.
--- NOTE | 2016-08-22 07:00 | NUR ---
ENDORSED TO ROOPA FRANCISCO.
--- NOTE | 2016-08-22 07:00 | NUR ---
RECEIVED REPORT FROM NIGHT NURSE, PT IS AAOX4, ON ROOM AIR, IV TO RIGHT AC 16G INFUSING WELL. INITIAL ASSESSMENT COMPLETED, REVIEW PLAN OF CARE WITH PT, PT VERBALIZED UNDERSTANDING. ALL SAFETY PRECAUTIONS MET. CALL LIGHT WITHIN REACH. WILL CONTINUE TO MONITOR.
--- NOTE | 2016-08-22 07:10 | NUR ---
PT REFUSES HHN AND VITALS
[2016-08-22 07:48] LABS: ANION GAP 12.9 (8-16); CALCIUM 7.6 mg/dL (8.5-10.1); CARBON DIOXIDE 23.9 mmol/L (21-32); CREATININE 0.6 mg/dL (0.6-1.3); POTASSIUM 3.8 mmol/L (3.5-5.1)
[2016-08-22 08:00] VITALS: BP 135/91
[2016-08-22] MEDS ORDERED: INSULIN GLARGINE RECOMBINAN SUBQ SCH (09:00)
--- NOTE | 2016-08-22 09:40 | NUR ---
DUE MEDICATIONS GIVEN, PT WANTS TO SIGNED AMA. EDUCATED PT ON RISK OF SIGNING AMA, PT VERBALIZED UNDERSTANDING. AWARE.
[2016-08-22] MEDS: PANTOPRAZOLE 40 MG INJ VIAL IVP SCH (09:53)
--- NOTE | 2016-08-22 09:58 | NUR ---
PT SIGNED AMA.
--- NOTE | 2016-08-22 15:32 | NUR ---
CM NOTE CONCURRENT CLINICAL REVIEW FAXED TO [facility] AT [phone] NIRMALA [phone] AUGUST [phone]
== END 2016-08-22 09:58 | disposition left against medical advice (07) | DRG 420 ==
LOC: MED 12:00 → MIC 16:26 → MTU 08-21 17:50
PROVIDERS: ADMIT Hospitalist; ATTEND Hospitalist
DX: E10.10 Type 1 diabetes mellitus with ketoacidosis without coma (principal); E87.5 Hyperkalemia; E87.1 Hypo-osmolality and hyponatremia; J45.909 Unspecified asthma, uncomplicated; E86.0 Dehydration; Z53.21 Procedure and treatment not carried out due to patient leaving prior to being seen by health care provider; Z87.898 Personal history of other specified conditions; Z91.19 Patient's noncompliance with other medical treatment and regimen
CPT/HCPCS: 36415; 71010; 80048; 80053; 81001; 82150; 82553; 82948; 83690; 83735; 83880; 84100; 84484; 85025; 85610; 85730; 87081; 93005; 96361; 96374; 96375; 99285; C9113; J1644; J1815; J7030; Q0092

== ENCOUNTER 2016-08-31 15:31 | Inpatient (IN) | payer OTHER ==
[~2016-08-31] VITALS: Ht 185.4 cm; Wt 64.5 kg
--- NOTE | 2016-08-31 15:31 | NUR ---
Patient was BIBA and taken to bed 04 via gurney per EMS.
[2016-08-31] MEDS ORDERED: NACL 0.9% 1,000 ML IV SCH ×2 (15:34→18:20)
[2016-08-31] MEDS ORDERED: ONDANSETRON 4 MG/2 ML VIAL IVP ONE (15:35)
[2016-08-31 15:38] VITALS: BP 124/75
--- NOTE | 2016-08-31 15:40 | NUR ---
Jazmin qureshi in ED - 08/31/16 at 1547 by DANYELLE I called Coco duffy; Dr. Olson is being paged again.
--- NOTE | 2016-08-31 15:40 | NUR ---
Dr. Nichols evalauting patient at bedside.
--- NOTE | 2016-08-31 15:40 | NUR ---
PT BIBA FOR EVALUATION OF ELEVATED BLOOD SUGAR. BLOOD SUGAR UPON ARRIVAL TO ER READ "HIGH". M.D. NOTIFIED. HX DM. DENIES N/V/D; SKIN IS PINK/WARM/DRY; AAOX4 WITH EVEN AND STEADY GAIT; LUNGS CLEAR BL; HR EVEN AND REGULAR; PT DENIES ANY FEVER, CP, SOB, OR COUGH AT THIS TIME; PATIENT STATES PAIN OF 0/10 AT THIS TIME; VSS; PATIENT POSITIONED FOR COMFORT; HOB ELEVATED; BEDRAILS UP X2; BED DOWN. ER MD MADE AWARE OF PT STATUS.
[2016-08-31] MEDS ORDERED: INSULIN HUMAN REGULAR 100 UNITS in NACL 0.9% 100 ML IV ONE (15:45)
[2016-08-31] MEDS ORDERED: INSULIN HUMAN REGULAR 100 UNITS/ML 10 ML VIAL IVP ONE (15:45)
[2016-08-31 16:18] LABS: BASOPHILS # (AUTO) 0.1 K/uL (0.00-0.22); BASOPHILS % (AUTO) 1.8 % (0.0-2.0); EOSINOPHILS # (AUTO) 0.1 K/uL (0-0.4); EOSINOPHILS % (AUTO) 1.6 % (0.0-4.0); HEMATOCRIT 42.1 % (36-52); HEMOGLOBIN 14.4 g/dL (12.0-18.0); LYMPHOCYTES # (AUTO) 0.8 K/uL (2.0-11.5); MEAN CORPUSCULAR HEMOGLOBIN 34 pg (27-31); MEAN CORPUSCULAR HGB CONC 34 g/dL (33-37); MEAN CORPUSCULAR VOLUME 99 fL (80-94); MONOCYTES # (AUTO) 0.2 K/uL (0.8-1.0); MONOCYTES % (AUTO) 2.7 % (1.7-9.3); NEUTROPHILS # (AUTO) 5.6 K/uL (1.8-7.7); NEUTROPHILS % (AUTO) 81.9 % (42.2-75.2); PLATELET COUNT (AUTO) 302 K/uL (140-450); RED BLOOD CELL COUNT(AUTO) 4.26 MIL/uL (4.20-6.10); RED CELL DISTRIBUTION WIDTH 13.3 % (11.6-13.7); WHITE BLOOD COUNT (AUTO) 6.8 K/uL (4.8-10.8)
--- NOTE | 2016-08-31 16:30 | NUR ---
BS HIGH PER GLUCOMETER, DR WHEAT NOTIFIED
[2016-08-31 16:36] LABS: ALANINE AMINOTRANSFERASE 481 U/L (16-63); ALBUMIN 3.4 g/dL (3.4-5.0); ALKALINE PHOSPHATASE 182 U/L (46-116); AMYLASE 19 U/L (25-115); ANION GAP 34.6 (8-16); ASPARTATE AMINOTRANSFERASE 343 U/L (15-37); CALCIUM 8.1 mg/dL (8.5-10.1); CHLORIDE 95 mmol/L (98-107); GFR ARICAN-AMERICAN 112 mL/min (>90); GFR NON ARICAN-AMERICAN 93 mL/min (>90); LIPASE 143 U/L (73-393); POTASSIUM 5.2 mmol/L (3.5-5.1); SODIUM SERUM 134 mmol/L (136-145); TOTAL BILIRUBIN 1.2 mg/dL (0.0-1.0); TOTAL PROTEIN, SERUM 6.7 g/dL (6.4-8.2); UREA NITROGEN, BLOOD 19 mg/dL (7-18)
[2016-08-31 16:39] LABS: CARBON DIOXIDE 9.6 mmol/L (21-32); GLUCOSE 664 mg/dL (74-106)
[2016-08-31] MEDS ORDERED: SODIUM BICARBONATE 8.4% PFS 50 MEQ/50 ML SYR IVP ONE (16:40)
[2016-08-31 17:12] LABS: ACETONE, SERUM SMALL (NEGATIVE)
[2016-08-31 17:16] LABS: BLOOD GAS PH 7.136 (7.35-7.45)
[2016-08-31 17:17] LABS: BLOOD GAS BASE EXCESS -20.6 mmol/L (-2.0-2.0); BLOOD GAS HCO3 6.5 mmol/L; BLOOD GAS PCO2 19.7 mmHg (20-50)
[2016-08-31 17:18] LABS: BLOOD GAS O2 SAT% 97.4 % (92.0-98.5)
--- NOTE | 2016-08-31 17:40 | NUR ---
Patient will be admitted to care of dr yoder. Admited to icu. Will go to room icu6. Belongings list completed. Report to arcadio medrano.
[2016-08-31] MEDS ORDERED: NACL 0.9% 1,000 ML IV ONE (17:45)
--- NOTE | 2016-08-31 17:45 | NUR ---
SECURITY AT BEDSIDE FOR PERSONAL BELONGING CHECK, PT REFUSED TO GIVE URINE SAMPL, VERBALLY ABUSIVE TO DARRON ROJO, DR WHEAT NOTIFIED
[2016-08-31] MEDS ORDERED: DEXTROSE 50% 50 ML SYR IVP PRN (18:00)
[2016-08-31] MEDS ORDERED: ALBUTEROL 0.083% 2.5 MG/3 ML NEBU IH PRN (18:00)
[2016-08-31] MEDS ORDERED: LORazepam 2 MG/ML VIAL IVP PRN (18:00)
[2016-08-31 18:10] VITALS: BP 128/91
--- NOTE | 2016-08-31 18:10 | NUR ---
RECEIVED PATIENT FROM ED LETHARGIC BUT EASILY AROUSABLE. RIGHT HAND G 20 PERIPHERAL IV PATENT AND INTACT WITH HEPARIN DRIP RUNNING AT 5 UNITS/HR. SKIN WARM TO TOUCH WNL, NO EDEMA, WITH HAIR GROWTH. URINE AND BOWEL CONTINENT CLAIMED. ON ROOM AIR. MADE COMFORTABLE IN BED. CALL LIGHT WITHIN REACH. WILL CONTINUE TO MONITOR PATIENT.
--- NOTE | 2016-08-31 18:15 | NUR ---
RECEIVED PATIENT FROM ER WITH INSULIN DRIP @ 5 UNIT/HR ON RT HAND IV SITE. PT HAS SALINE LOCK IN RT FOREARM.
[2016-08-31] MEDS ORDERED: SODIUM BICARBONATE 8.4% PFS 50 MEQ/50 ML SYR IVP SCH (18:36)
[2016-08-31] MEDS: NACL 0.9% 1,000 ML IV SCH (18:44)
--- NOTE | 2016-08-31 18:44 | NUR ---
STARTED IV OF 0.9 NS @ 150 ML/HR PER ORDERED.
[2016-08-31] MEDS: BLOOD GLUCOSE MONITORING 1 DEV DEV FS SCH ×6 (18:45→23:07)
--- NOTE | 2016-08-31 18:45 | NUR ---
FS BLOOD GLUCOSE IS 309. DECREASED INSULIN DRIP TO 2 UNIT/HR ORDERED. PATIENT IS LETHARGIC,BUT EASILY AWAKEN. NO SIGN OF RESPIRATORY DISTRESS. ROOM AIR O2 SAT 100%.
--- NOTE | 2016-08-31 18:53 | NUR ---
WAS NOTIFIED OF PATIENT ADMISSION WITH ORDERS RECEIVED. GIVEN PATIENT 2 AMP OF SODIUM BICARB IVP FOR METABOLIC ACIDOSIS PER ORDER.
[2016-08-31] MEDS ORDERED: INSULIN HUMAN REGULAR 100 UNITS in NACL 0.9% 100 ML IV SCH (19:00)
--- NOTE | 2016-08-31 19:02 | NUR ---
FS BLOOD GLUCOSE 201. DECREASED INSULIN DRIP TO 2 UNIT/HR ORDERED.
--- NOTE | 2016-08-31 19:31 | NUR ---
REPORT GIVEN TO NIGHT NURSE FOR CONTINUITY OF CARE.
--- NOTE | 2016-08-31 19:35 | NUR ---
RECEIVED REPORT FROM FRANCISCO ROB. PATIENT IS RESTING IN BED WITH NO SIGNS OF SOB OR DISTRESS NOTED. PATIENT IS LETHARGIC, BUT OPENS EYES TO NAME AND REFUSES TO ANSWER QUESTIONS. PATIENT DX IS DKA. VITALS ARE WNL. ST ON EMBOSSER APPRENTICE. NO REPORTS OF PAIN OR DISCOMFORT AT THIS TIME. THERE IS A #22 IN THE RIGHT WRIST RECEIVING NORMAL SALINE AT 150 ML/HR AND THERE IS A #20 IN THE RIGHT HAND RECEIVING INSULIN DRIP PER PROTOCOL. BREATH SOUNDS ARE CLEAR AND BOWEL SOUNDS ARE ACTIVE. HOB AT 30 DEGREES WITH BED IN LOW POSITION. WILL CONTINUE TO MONITOR PATIENT.
[2016-08-31 20:00] VITALS: BP 130/77
--- NOTE | 2016-08-31 20:20 | NUR ---
TAX ADJUSTER AT BEDSIDE FOR SCHEDULED BLOOD DRAWS. NO SIGNS OF DISTRESS NOTED. CONTINUE TO MONITOR PATIENT.
[2016-08-31 20:47] LABS: ANION GAP 24.5 (8-16); CALCIUM 8.1 mg/dL (8.5-10.1); CARBON DIOXIDE 19.8 mmol/L (21-32); CREATININE 1.1 mg/dL (0.7-1.3); POTASSIUM 4.3 mmol/L (3.5-5.1)
[2016-08-31 22:00] VITALS: BP 131/86
--- NOTE | 2016-08-31 22:10 | NUR ---
PATIENT RESTING COMFORTABLY IN BED. BREATHING IS EVEN AND UNLABORED. CONTINUE TO MONITOR PATIENT.
--- NOTE | 2016-08-31 23:07 | NUR ---
PATIENT'S BLOOD SUGAR IS 90. PATIENT'S BLOOD SUGAR WILL BE CHECK Q2H PER BLOOD GLUCOSE MONITORING PROTOCOL. CHARGE NURSE IS AWARE. CONTINUE TO MONITOR PATIENT.
[2016-09-01] VITALS (12 sets, daily range): BP systolic 101–132; BP diastolic 51–90
--- NOTE | 2016-09-01 00:24 | NUR ---
COMPUTER EQUIPMENT INSTALLER AT BEDSIDE FOR SCHEDULED LAB DRAWS.
--- NOTE | 2016-09-01 00:35 | NUR ---
PATIENT RESTING COMFORTABLY IN BED WITH NO S/S OF SOB OR ACUTE DISTRESS NOTED. HOB AT 30 DEGREES WITH BED IN LOW POSITION. WILL CONTINUE TO MONITOR PATIENT.
[2016-09-01] MEDS: NACL 0.9% 1,000 ML IV SCH (00:37)
[2016-09-01 00:43] LABS: CALCIUM 7.4 mg/dL (8.5-10.1); CARBON DIOXIDE 24.5 mmol/L (21-32); CREATININE 0.9 mg/dL (0.7-1.3); POTASSIUM 3.5 mmol/L (3.5-5.1)
[2016-09-01] MEDS: BLOOD GLUCOSE MONITORING 1 DEV DEV FS SCH ×15 (01:01→20:36)
--- NOTE | 2016-09-01 03:45 | NUR ---
PATIENT AWAKE IN BED AND REQUESTED A SNACK. PROVIDED 1 TURKEY SANDWICH AND 1 BOX OF APPLE JUICE. PATIENT HAS GOOD APPETITE. NO SIGNS OF DISTRESS. CONTINUE TO MONITOR PATIENT.
--- NOTE | 2016-09-01 04:25 | NUR ---
LAYOUT DESIGNER AT BEDSIDE FOR SCHEDULED AM LAB DRAWS.
--- NOTE | 2016-09-01 04:26 | NUR ---
PATIENT REFUSING LAB DRAWS AT THIS TIME.
--- NOTE | 2016-09-01 07:05 | NUR ---
PATIENT VOIDED 1000ML IN URINAL. PATIENT REQUESTED ADDITIONAL URINAL TO VOID. WILL ENDORSE TO DAY SHIFT RN.
--- NOTE | 2016-09-01 07:17 | NUR ---
ENDORSED CONTINUITY OF CARE TO PEDRO ROB.
--- NOTE | 2016-09-01 07:30 | NUR ---
RECEIVED REPORT FROM DORIAN. HE IS SLEEPING AWAKE BY NAME CALLED HIS SKINDRYAND WARM TO TOUCH ON ROOM AIR. IV FLUID HAS #20ON RT HAND INFUSING NS AT 150ML/HR. #22 ON RT WRIST INFUSING REGULAR IV NRIP AT 1UNIT/HR. HE VOID IN URENAL. DENIED PAIN AT THE TIME.
--- NOTE | 2016-09-01 08:00 | NUR ---
BLOOD GLUCOSE 197 INSULINDRIP AT 1UNIT/HR.
[2016-09-01 08:16] LABS: BASOPHILS # (AUTO) 0.2 K/uL (0.00-0.22); BASOPHILS % (AUTO) 2.7 % (0.0-2.0); EOSINOPHILS # (AUTO) 0.1 K/uL (0-0.4); EOSINOPHILS % (AUTO) 0.8 % (0.0-4.0); LYMPHOCYTES # (AUTO) 1.6 K/uL (2.0-11.5); LYMPHOCYTES % (AUTO) 20.5 % (20.5-51.1); MEAN CORPUSCULAR HEMOGLOBIN 33 pg (27-31); MEAN CORPUSCULAR HGB CONC 33 g/dL (33-37); MEAN CORPUSCULAR VOLUME 98 fL (80-94); MONOCYTES # (AUTO) 0.3 K/uL (0.8-1.0); MONOCYTES % (AUTO) 4.4 % (1.7-9.3); NEUTROPHILS # (AUTO) 5.4 K/uL (1.8-7.7); NEUTROPHILS % (AUTO) 71.6 % (42.2-75.2); PLATELET COUNT (AUTO) 285 K/uL (140-450); RED BLOOD CELL COUNT(AUTO) 3.98 MIL/uL (4.20-6.10); RED CELL DISTRIBUTION WIDTH 13.1 % (11.6-13.7); WHITE BLOOD COUNT (AUTO) 7.6 K/uL (4.8-10.8)
--- NOTE | 2016-09-01 08:37 | NUR ---
PATIENT HAS BEEN SCREENED AND CATEGORIZED HIGH NUTRITION RISK. PATIENT WILL BE SEEN WITHIN 1-2 DAYS OF ADMISSION. 09/01/16-09/02/[address]
[2016-09-01 08:42] LABS: ANION GAP 18.2 (8-16); CALCIUM 7.5 mg/dL (8.5-10.1); CARBON DIOXIDE 21.2 mmol/L (21-32); CREATININE 1.1 mg/dL (0.7-1.3); POTASSIUM 4.4 mmol/L (3.5-5.1)
[2016-09-01] MEDS: ENOXAPARIN 40 MG/0.4 ML SYR SUBQ SCH (09:00)
--- NOTE | 2016-09-01 09:00 | NUR ---
BL. GLUNOSE 249 INSULIN DRIP AT I UNIT/HR.
--- NOTE | 2016-09-01 10:42 | NUR ---
CM NOTE INITIAL REVIEW FAXED TO [facility] [phone] [place] [phone]
--- NOTE | 2016-09-01 11:25 | NUR ---
WAS NOTIFIED OF LAST BMP REPORT (DRAWN @ 0810 HR) WITH LOW SERUM MAGNESIUM LEVEL 1.6 AND UPDATED IN PATIENT'S CONDITION. ORDER RECEIVED TO GIVE MAGNESIUM SULFATE 2 GM IVPB X 1. ORDER IS CARRIED OUT.
[2016-09-01] MEDS ORDERED: MAG SULF 2000 MG/WATER PREMIX 50 ML IV SCH (12:00)
--- NOTE | 2016-09-01 12:38 | NUR ---
09/01/16 RD INITIAL ASSESSMENT COMPLETED PLEASE REFER TO NUTRITION ASSESSMENT UNDER CARE ACTIVITY FOR ESTIMATED NUTRITIONAL NEEDS. 1. CONTINUE 60 G CONSISTENT CARBOHYDRATE DIET 2. PROVIDE NUTRITION THERAPY EDUCATION NEEDED 3. RD TO FOLLOW-UP 2-3 DAYS; HIGH RISK VIDAL WISEM[address]
--- NOTE | 2016-09-01 12:38 | NUR ---
09/01/16 RD INITIAL ASSESSMENT COMPLETED PLEASE REFER TO NUTRITION ASSESSMENT UNDER CARE ACTIVITY FOR ESTIMATED NUTRITIONAL NEEDS. 1. CONTINUE 60 G CONSISTENT CARBOHYDRATE DIET 2. PROVIDE NUTRITION THERAPY NEEDED 3. RD TO FOLLOW-UP 2-3 DAYS; HIGH RISK VIDAL WISEM[address]
[2016-09-01 12:51] LABS: ANION GAP 18.3 (8-16); CARBON DIOXIDE 21.4 mmol/L (21-32); CREATININE 1.1 mg/dL (0.7-1.3); POTASSIUM 3.7 mmol/L (3.5-5.1)
[2016-09-01 12:55] LABS: CALCIUM 7.5 mg/dL (8.5-10.1)
--- NOTE | 2016-09-01 13:45 | NUR ---
SEEN BY DR. CALIX AT BED SIDE , ORDER RECFIVES.
--- NOTE | 2016-09-01 14:00 | NUR ---
PT. REFUSED TO HAVE BL. GLUCOSE FINGER STICK DONE .SAID HIH FINGER IS SO SORE.
--- NOTE | 2016-09-01 15:00 | NUR ---
REFUSE TO HAVE GLUCOSE FINGER STICK DONE,
--- NOTE | 2016-09-01 16:00 | NUR ---
BL GLUCOSE 122 , INSULIN DRIP AT 1ML/HR.
[2016-09-01 16:20] LABS: ANION GAP 13.4 (8-16); CALCIUM 7.4 mg/dL (8.5-10.1); CARBON DIOXIDE 24.2 mmol/L (21-32); CREATININE 0.9 mg/dL (0.7-1.3); POTASSIUM 3.6 mmol/L (3.5-5.1)
--- NOTE | 2016-09-01 17:00 | NUR ---
REFUSED TO HAVE THE GLUCOSE MONITOR DONE
[2016-09-01] MEDS ORDERED: INSULIN LISPRO SLIDING SCALE 100 UNITS/ML VIAL SUBQ PRN (18:15)
--- NOTE | 2016-09-01 18:15 | NUR ---
REPORT LAB RESULT TO DR. LEVINE ORDER RECEIVED,
[2016-09-01] MEDS ORDERED: INSULIN DETEMIR 100 UNITS/ML 10 ML VIAL SUBQ SCH (18:30)
--- NOTE | 2016-09-01 18:30 | NUR ---
D/C INSULIN IV DRIP. .GIVE LEVEMIR INSULIN 30 UNIT SQ, AND D/I IV HEP LOCK PT IS AWAKE AND ALERT AT [place].
--- NOTE | 2016-09-01 19:15 | NUR ---
PT ALERT AND AWAKE, HR 100, RR 16, SAT 100% ON ROOM AIR. NO DISTRESS/SOB/WHEEZING NOTED AT THIS TIME. NO INDICATION FOR HHN PRN TX.
--- NOTE | 2016-09-01 19:20 | NUR ---
REPORT GIVE TO SONNY ROB,
--- NOTE | 2016-09-01 19:20 | NUR ---
RECEIVED REPORT FROM DARRON KINGSLEY AT BEDSIDE, PT IS AAOX4, ABLE TO FOLLOW COMMANDS AND MAKE NEEDS KNOWN. VSS. DENIES PAIN. NO S/S OF SOB, BREATHING EVEN AND UNLABORED, ON RA, DENIES CHEST PAIN, SR ON POST ANESTHESIA NURSE, SOFT ABDOMEN WITH ACTIVE BOWEL SOUNDS, CONTINENT WITH B&B'S, ABLE TO MOVE ALL EXTREMITIES, SKIN IS INTACT, WARM AND DRY TO TOUCH, IV SITE TO RIGHT FOREARM 20GA, PATENT, SL. EXPLAINED PLAN OF CARE TO PT, PT VERBALIZED UNDERSTANDING IT, SAFETY PRECAUTION IN PLACE, CALL LIGHT WITHIN REACH, WILL CONTINUE TO MONITOR.
[2016-09-01 20:36] LABS: ANION GAP 12.8 (8-16); CALCIUM 7.3 mg/dL (8.5-10.1); CARBON DIOXIDE 25.7 mmol/L (21-32); CREATININE 0.8 mg/dL (0.7-1.3); POTASSIUM 3.5 mmol/L (3.5-5.1)
--- NOTE | 2016-09-01 21:00 | NUR ---
ACCU CHECK DONE WITH RESULT OF 201MG/DL, 4 UNITS OF HUMALOG GIVEN ORDERED, PT TOLERATED WELL.
--- NOTE | 2016-09-01 22:00 | NUR ---
PT C/O SHAKING, ACCU CHECK PERFORMED WITH RESULT OF 55 MG/DL, REFUSED D50, EXPLAINED THE RISK AND BENEFIT OF MEDICATION, PT STILL REFUSE IT. ORANGE JUICE AND SANDWICH GIVEN, WILL RECHECK BS AGAIN.
--- NOTE | 2016-09-01 22:30 | NUR ---
RECHECKED BS LEVEL WITH RESULT OF 120 MG/DL. NO SHAKING SYMPTOM AT THIS TIME.
[2016-09-02] VITALS (7 sets, daily range): BP systolic 104–159; BP diastolic 28–82
--- NOTE | 2016-09-02 | NUR ---
PT IS ASLEEP IN BED, NO S/S OF HYPER/HYPOGLYCEMIA, VSS.
[2016-09-02 00:41] LABS: ANION GAP 9.8 (8-16); CALCIUM 7.3 mg/dL (8.5-10.1); CARBON DIOXIDE 26.7 mmol/L (21-32); CREATININE 0.7 mg/dL (0.7-1.3); POTASSIUM 3.5 mmol/L (3.5-5.1)
--- NOTE | 2016-09-02 02:00 | NUR ---
NO CHANGE OF CONDITION AT THIS TIME, PT IS ASLEEP IN BED, VSS.
--- NOTE | 2016-09-02 04:00 | NUR ---
[facility] CARE OFFERED, PT REFUSED, RISK AND BENEFIT EXPLAINED, PT STATED WILL DO IT IN THE MORNING.
[2016-09-02 04:37] LABS: MONOCYTES # (AUTO) 0.4 K/uL (0.8-1.0)
[2016-09-02 04:42] LABS: BASOPHILS # (AUTO) 0.2 K/uL (0.00-0.22); BASOPHILS % (AUTO) 4.6 % (0.0-2.0); EOSINOPHILS % (AUTO) 0.8 % (0.0-4.0); HEMATOCRIT 38.7 % (36-52); LYMPHOCYTES # (AUTO) 1.5 K/uL (2.0-11.5); LYMPHOCYTES % (AUTO) 30.3 % (20.5-51.1); MEAN CORPUSCULAR HEMOGLOBIN 33 pg (27-31); MEAN CORPUSCULAR HGB CONC 34 g/dL (33-37); MEAN CORPUSCULAR VOLUME 98 fL (80-94); MONOCYTES % (AUTO) 8.4 % (1.7-9.3); NEUTROPHILS # (AUTO) 2.9 K/uL (1.8-7.7); NEUTROPHILS % (AUTO) 55.9 % (42.2-75.2); PLATELET COUNT (AUTO) 258 K/uL (140-450); RED BLOOD CELL COUNT(AUTO) 3.95 MIL/uL (4.20-6.10); RED CELL DISTRIBUTION WIDTH 12.6 % (11.6-13.7)
[2016-09-02 05:04] LABS: CALCIUM 7.6 mg/dL (8.5-10.1); CARBON DIOXIDE 28.5 mmol/L (21-32); POTASSIUM 3.5 mmol/L (3.5-5.1)
[2016-09-02 05:05] LABS: ALBUMIN 2.5 g/dL (3.4-5.0); CREATININE 0.6 mg/dL (0.7-1.3); TOTAL BILIRUBIN 0.3 mg/dL (0.0-1.0); TOTAL PROTEIN, SERUM 5.3 g/dL (6.4-8.2)
--- NOTE | 2016-09-02 06:00 | NUR ---
PT IS ASLEEP IN BED, NO CHANGE OF CONDITION AT THIS TIME, VSS.
[2016-09-02] MEDS: BLOOD GLUCOSE MONITORING 1 DEV DEV FS SCH ×2 (06:39→11:48)
--- NOTE | 2016-09-02 07:15 | NUR ---
REPORT GIVEN TO DARRON BARBER AND DARRON NGUYEN FOR CONTINUE OF CARE, PT IS IN STABLE CONDITION AT THIS TIME.
--- NOTE | 2016-09-02 07:45 | NUR ---
RECEIVED REPORT FROM DARRON DENNIS. PT IS ALERT AND ORIENTED X4. VERBALLY RESPONSIVE. NO C/O PAIN OR DISCOMFORT. FOLLOWS COMMAND. BILATERAL PERRLA NOTED IN EYES. PT ON RA SATURATING AT 100%. SR-ST ON MONITOR. SKIN IS INTACT. ABLE TO MOVE ALL EXTREMITIES. R FOREARM 20 GAUGE NOTED. INTACT AND PATENT. ABLE TO VOID INDEPENDENTLY TO URINAL. SAFETY PRECAUTION MAINTAINED. BED AT LOWEST SETTING. CALL LIGHT WITHIN REACH. WILL CONTINUE TO MONITOR FOR CHANGES.
[2016-09-02] MEDS: ENOXAPARIN 40 MG/0.4 ML SYR SUBQ SCH (08:06)
--- NOTE | 2016-09-02 08:10 | NUR ---
MEDICATION ADMINISTERED ORDERED. TOLERATED WELL. WILL CONTINUE TO MONITOR. BREAKFAST AT BEDSIDE. PT ATE 100% OF BREAKFAST. TOLERATED WELL.
--- NOTE | 2016-09-02 08:46 | NUR ---
ATTEMPTED TO PAGE DR. CALIX. INFORMED DR. TY IS PRESSER COTTON GINNING. AWAITING CALL BACK FROM DR. TY.
--- NOTE | 2016-09-02 08:50 | NUR ---
RECEIVED CALL BACK FROM DR. ALMONTE REGARDING PT'S ICU STATUS. PER MD, WILL AWAIT FOR HIM TO ASSESS PT BEFORE FURTHER ORDERS.
--- NOTE | 2016-09-02 10:50 | NUR ---
PT REFUSED BP CUFF PLACEMENT. SAID HE'S SLEEPING AND DON'T WANT TO BE BOTHERED. WILL RETRY AGAIN WHEN PT IS MORE CALM.
--- NOTE | 2016-09-02 11:45 | NUR ---
DR. ALMONTE AT BEDSIDE TO SEE PT. WILL F/U WITH NEW ORDERS.
--- NOTE | 2016-09-02 11:48 | NUR ---
BG 84 NOTED. PT REQUESTED JUICE D/T FEELING LIKE HE'LL START SHAKING SOON. 1 CARTON ORANGE JUICE GIVEN. WILL CONTINUE TO MONITOR.
[2016-09-02 12:55] LABS: CALCIUM 7.5 mg/dL (8.5-10.1); CARBON DIOXIDE 24.8 mmol/L (21-32); CREATININE 0.8 mg/dL (0.7-1.3); POTASSIUM 4.8 mmol/L (3.5-5.1)
--- NOTE | 2016-09-02 13:55 | NUR ---
PT IS ALERT AND ORIENTED X4. VERBALLY RESPONSIVE. ABLE TO COMMUNICATE NEEDS. NO C/O PAIN OR DISCOMFORT. DISCHARGE PACKET REVIEWED WITH PT. ALL QUESTIONS ANSWERED. ALL PAPERWORK SIGNED. PT STATED UNDERSTANDING TOWARDS DX. ABLE TO AMBULATE. AMBULATED WITH PT TO LOBBY. SECURITY NOTIFIED TO BRING ALL BELONGINGS. ALL OTHER BELONGINGS WITH PT. PRESCRIPTION WITH PATIENT. PT IS STABLE. WRIST BAND REMOVED. IV REMOVED WITH CANNULA INTACT.
== END 2016-09-02 13:30 | disposition home or self-care (01) | DRG 420 ==
LOC: MED 15:31 → MIC 18:05
PROVIDERS: ADMIT Internal Medicine Pulmonary Disease; ATTEND Internal Medicine Pulmonary Disease
DX: E10.10 Type 1 diabetes mellitus with ketoacidosis without coma (principal); Z91.14 Patient's other noncompliance with medication regimen; Z59.0 Homelessness; Z79.4 Long term (current) use of insulin
CPT/HCPCS: 36415; 36600; 80048; 80053; 82009; 82150; 82803; 82948; 83690; 83735; 85025; 87081; 93005; 96361; 96374; 96375; 99291; C1758; J1650; J1815; J2405; J3475; J7030

== ENCOUNTER 2016-11-30 02:15 | Inpatient (IN) | payer OTHER ==
[~2016-11-30] VITALS: Ht 172.7 cm; Wt 55.1 kg
[2016-11-30] VITALS (10 sets, daily range): BP systolic 103–128; BP diastolic 66–84
[~2016-11-30 02:15] MED LIST changes: +LANTUS INS100 UNITS/ SUBQ; -LANTUS SUBQ; +NOVOLIN R100 U/ML SUBQ; +NOVOLIN R100 UNITS/ SUBQ; -SLIDE SUBQ
--- NOTE | 2016-11-30 02:16 | NUR ---
PATIENT BIB [facility] TO THE ED C/O OF DKA. PER [facility] PT WAS FOUND ON THE STREET AND STATES THAT HE HAS HAD EPISODES OF DKA BEFORE. PER [facility] BLOOD GLUCOSE WAS TOO HIGH TO READ. UPON ARRIVAL IN ED, BLOOD GLUCOSE WAS TOO HIGH TO READ. PT CAME IN WITH LEFT 20 AC IV RUNNING 1L NS BOLUS. PER [facility], PATIENT HAS NKA. PT AAOX4, RR EVEN/UNLABORED. PT REPOSITIONED FOR COMFORT, BED PUT IN LOWEST POSITION. ER MD DR. MENENDEZ NOTIFIED. WILL CONTINUE TO MONITOR. H/O----TYPE 1 DIABETES.
--- NOTE | 2016-11-30 02:16 | NUR ---
PT GINI ALS. TAKEN TO BED 5
[2016-11-30] MEDS ORDERED: NACL 0.9% 1,000 ML IV ONE (02:20)
[2016-11-30] MEDS ORDERED: INSULIN HUMAN REGULAR 100 UNITS/ML 10 ML VIAL IVP ONE (02:25)
--- NOTE | 2016-11-30 02:35 | NUR ---
NOTED IV SITE R AC 20 THAT [facility] INSERTED WAS LEAKING. IV REMOVED, CATHETER INTACT AND SITE BENIGN. APPLIED FOLDED 4X4 GAUZE AND TAPE TO STOP BLEEDING.
--- NOTE | 2016-11-30 03:00 | NUR ---
RT AT BEDSIDE FOR ABG
[2016-11-30] MEDS ORDERED: INSULIN HUMAN REGULAR 100 UNITS in NACL 0.9% 100 ML IV ONE (03:10)
--- NOTE | 2016-11-30 03:30 | NUR ---
X-Ray at bedside.
--- NOTE | 2016-11-30 04:00 | NUR ---
Patient will be admitted to care of DR. GARCIA. Admited to ICU. Will go to room 2. Belongings list completed. Report to KELLEY ROB.
[2016-11-30] MEDS ORDERED: ONDANSETRON 4 MG/2 ML VIAL IVP PRN (04:05)
[2016-11-30] MEDS ORDERED: INSULIN HUMAN REGULAR 100 UNITS in NACL 0.9% 100 ML IV SCH (04:05)
--- NOTE | 2016-11-30 04:35 | NUR ---
RECEIVED PATIENT FROM ER VIA GURNEY ACCOMPANIED BY 2 ER STAFF. PATIENT IS LETHARGIC AT THIS TIME. ON INSULIN DRIP AND IV FLUIDS, INFUSING WELL. SKIN WARM AND DRY TO TOUCH. NO APPARENT PHYSICAL DISTRESS. LEADS ATTACHED FOR MONITORING. BLOOD SUGAR CHECKED AT 433 MG/DL. ADMISSION ASSESSMENT INITIATED. WILL CONTINUE TO MONITOR.
[2016-11-30] MEDS: DEXT 5% / NACL 0.45% 1,000 ML IV SCH ×3 (04:45→14:20)
[2016-11-30] MEDS: NACL 0.9% 1,000 ML IV SCH ×7 (04:45→20:48)
[2016-11-30] MEDS: BLOOD GLUCOSE MONITORING 1 DEV DEV FS SCH ×14 (04:45→20:45)
--- NOTE | 2016-11-30 04:50 | NUR ---
NOVOLIN R INSULIN 100 UNITS IN 100 ML NS INCREASED TO 8 UNITS/KG (8ML/HR) ORDERED BY DR. GARCIA. WILL CONTINUE TO MONITOR PATIENT.
--- NOTE | 2016-11-30 05:45 | NUR ---
PATIENT REFUSES MORNING CARE OFFERED. OPENS EYES AND GOES BACK TO SLEEP.
--- NOTE | 2016-11-30 06:40 | NUR ---
BLOOD SUGAR CHECK 336 MG/DL. PATIENT CONTINUE ON INSULIN DRIP AT 8 U/HR. WILL CONTINUE TO MONITOR PATIENT.
--- NOTE | 2016-11-30 07:30 | NUR ---
RECEIVED REPORT FROM HALL PORTER RN, PT SLEEPING BUT EASILY AWAKING BY ASSESSMENT. BEDSIDE MONITOR SHOWS ST, ROOM AIR, NO S/S OF RESPIRATORY DISTRESS NOTED. LUNG SOUND CLEAR, ABDOMEN SOFT WITH ACTIVE BOWEL SOUND. PT ON INSULIN DRIP 8 UNITS/HR AND 0.9 NS AT 250 ML/HR. SITE INTACT AND PATENT. POC EXPLAINED TO PT. PT VERBALIZED UNDERSTANDING, WILL CONTINUE TO MONITOR PT.
--- NOTE | 2016-11-30 07:46 | NUR ---
PAGED DR. GARCIA REGARDING CRITICAL POTASSIUM: 7.2. INFORMED DR. EVERARDO POSADA. AWAITING CALLBACK.
--- NOTE | 2016-11-30 07:59 | NUR ---
RECEIVED CALLBACK FROM DR. MCGEE. NEW ORDERS RECEIVED.
--- NOTE | 2016-11-30 08:07 | NUR ---
PATIENT HAS BEEN SCREENED AND CATEGORIZED HIGH NUTRITION RISK. PATIENT WILL BE SEEN WITHIN 1-2 DAYS OF ADMISSION. 11/30/16-12/01/[address]
[2016-11-30] MEDS ORDERED: SODIUM POLYSTYRENE 15 GM/60 ML UDBTL PO SCH (08:11)
[2016-11-30] MEDS: ENOXAPARIN 40 MG/0.4 ML SYR SUBQ SCH (08:53)
--- NOTE | 2016-11-30 10:48 | NUR ---
CM NOTE INITIAL REVIEW FAXED TO [facility] [phone] NIR[place] [phone]
[2016-11-30] MEDS: SODIUM POLYSTYRENE 15 GM/60 ML UDBTL PO SCH ×2 (11:51→16:00)
--- NOTE | 2016-11-30 12:03 | NUR ---
PT SLEEPING BUT EASILY AWAKING BY ASSESSMENT. LUNCH TRAY SERVED.
--- NOTE | 2016-11-30 16:00 | NUR ---
POTASSIUM 3.6, HELD KAYEXALATE.
--- NOTE | 2016-11-30 17:21 | NUR ---
PT UP AND EATING DINNER WITH NO ISSUES.
[2016-11-30] MEDS ORDERED: INSULIN DETEMIR 100 UNITS/ML 10 ML VIAL SUBQ SCH (18:00)
--- NOTE | 2016-11-30 18:44 | NUR ---
RECEIVED REPORT FROM NIGHT ICU NURSE.
--- NOTE | 2016-11-30 18:44 | NUR ---
REPORT GIVEN TO SETTLEMENT AGENTDARRON BLAS PT WILL BE TRANSFERRED TO 110 A
--- NOTE | 2016-11-30 19:10 | NUR ---
PT ARRIVED TO UNIT FROM ICU, ENDORSED REPORT GIVEN TO YULISSA HAILY NURSE FOR CONTINUITY OF CARE
--- NOTE | 2016-11-30 19:30 | NUR ---
RECEIVED PT FROM ROOPA ROB PT IS AAOX4 AMBULATORY HL ON RT AC PATENT ON TELEMETRY SR PT COOPERATIVE DENIES ANY OR DISCOMFORT INITIAL ASSESSMENT DONE
[2016-11-30] MEDS: INSULIN LISPRO SLIDING SCALE 100 UNITS/ML VIAL SUBQ PRN (20:53)
--- NOTE | 2016-11-30 21:00 | NUR ---
BLOOD SUGAR 230 COVERAGE WITH 4 UNITS HUMALOG SUBQ LEFT ARM
[2016-12-01] VITALS: BP 113/69
--- NOTE | 2016-12-01 | NUR ---
BLOOD SUGAR CHECKED DONE WITH RESULT OF 100,NO INSULIN GIVEN. RESIDENT ATE SOME XIOMARA CRACKERS AND DRINK MILK.
--- NOTE | 2016-12-01 03:00 | NUR ---
PT REMAIN STABLE SLEEPING WELL AT THIS TIME ON TELEMETRY SR
[2016-12-01 04:00] VITALS: BP 96/56
--- NOTE | 2016-12-01 04:00 | NUR ---
BLOOD SUGAR CHECK DONE RESULT IS 76,NO INSULIN GIVEN. PT ALERT ORIENTED X4,SKIN WARM TO TOUCH,NO S/S OF RESP DISTRESS,NO SOB.NO C/O ANY PAIN AT THIS TIME. PT DRINK APPLE JUICE TOLERATED WELL.
[2016-12-01] MEDS: NACL 0.9% 1,000 ML IV SCH (04:11)
[2016-12-01] MEDS: BLOOD GLUCOSE MONITORING 1 DEV DEV FS SCH ×5 (04:21→16:34)
--- NOTE | 2016-12-01 05:41 | NUR ---
SPONGE BATH GIVEN GRANTN LEISA NOT DISTRESS NOTED ON TEL SR
--- NOTE | 2016-12-01 06:32 | NUR ---
PT SLEEPING AND STABLE NO C/O PAIN . TELEMETRY SR.
--- NOTE | 2016-12-01 07:25 | NUR ---
RECEIVED REPORT FROM GEARMAN NURSE, PT IS RESTING IN BED, A/OX4, AMBULATORY, PT HAS IV ON HIS RT AC, PATENT, INTACT, FLUSHING WELL, NO S/S OF RESPIRATORY DISTRESS OR DISCOMFORT NOTED, DISCUSSED PLAN OF CARE WITH PT, PT VERBALIZED UNDERSTANDING, SAFETY/FALL PRECAUTIONS ARE IN PLACE, CALL LIGHT WITHIN REACH, WILL CONTINUE TO MONITOR.
[2016-12-01 08:00] VITALS: BP 121/62
[2016-12-01] MEDS: metFORMIN 500 MG TAB PO SCH ×2 (08:49→17:00)
--- NOTE | 2016-12-01 08:49 | NUR ---
DUE MEDICATIONS GIVEN, PT TOLERATED WELL, CALL LIGHT WITHIN REACH. WILL CONTINUE TO MONITOR.
[2016-12-01] MEDS: ENOXAPARIN 40 MG/0.4 ML SYR SUBQ SCH (08:56)
[2016-12-01] MEDS ORDERED: INSULIN DETEMIR 100 UNITS/ML 10 ML VIAL SUBQ SCH (09:00)
--- NOTE | 2016-12-01 09:17 | NUR ---
CM NOTE CONCURRENT REVIEW FAXED TO [facility] [phone] # NIRMALA [phone]
--- NOTE | 2016-12-01 11:00 | NUR ---
PATIENT SLEEPING IN BED, CALL LIGHT WITHIN REACH.
--- NOTE | 2016-12-01 11:04 | NUR ---
12/01/16 RD INITIAL ASSESSMENT COMPLETED PLEASE REFER TO NUTRITION ASSESSMENT UNDER CARE ACTIVITY FOR ESTIMATED NUTRITIONAL NEEDS. 1. CONTINUE 45G CONSISTENT CARBOHYDRATE DIET 2. PROVIDE NUTRITION THERAPY EDUCATION NEEDED 2. RD TO FOLLOW-UP 3-5 DAYS, HIGH RISK VIDAL WISEMAN RD
[2016-12-01 12:00] VITALS: BP 114/72
--- NOTE | 2016-12-01 12:11 | NUR ---
PATIENT REFUSED TO GET OUT OF BED TO WORK WITH PHYSICAL THERAPY.
[2016-12-01] MEDS: INSULIN LISPRO SLIDING SCALE 100 UNITS/ML VIAL SUBQ PRN (13:24)
--- NOTE | 2016-12-01 15:20 | NUR ---
PT NOTE 1124 RECEIVED ORDER FOR PT; CHART REVIEWED AND CLEARED FOR PT PER RN. Pt REFUSED TO PARTICIPATE WITH PT SAYING THAT HE DOES NOT WANT TO BE BOTHERED BECAUSE HE IS SLEEPING; TOLD TO THIS PT, "GET THE F%@# OUT OF HERE!" RN NOTIFIED AND STATES THAT HE HAS NOT BEEN COOPERATING. PVE(1) [id number] 2ND ATTEMPT TO SEE Pt FOR PT EVAL; Pt STATES THAT HE DOES NOT NEED PHYSICAL THERAPY, THAT HE IS NOT CRIPPLED; TOLD PT AGAIN, "GET THE F%@# OUT OF HERE!" RN (ADELFO) NOTIFIED WHO STATES THAT SHE WILL NOTIFY MD TO CANCEL ORDER SINCE Pt REQUESTED TO CANCEL PT EVAL. PVE(1)
--- NOTE | 2016-12-01 15:41 | NUR ---
PAGED. DR. GALLARDO WHO IS COVERING FOR DR. GARCIA, I PAGED HIM TO LET HIM KNOW THE PATIENT'S POTASSIUM LEVEL IS 3.2 AND TO ASK HIM IF HE COULD CANCEL THE ORDER FOR PHYSICAL THERAPY SINCE THE PATIENT HAS BEEN REFUSING PHYSICAL THERAPY.
[2016-12-01 16:00] VITALS: BP 120/62
--- NOTE | 2016-12-01 16:00 | NUR ---
PAGED DR. BYRNE WHO IS THE PHYSICIAN COMMUNITY CULTURAL DEVELOPMENT OFFICER PER DR. GALLARDO.
[2016-12-01] MEDS ORDERED: GLUCOPHAGE850 MG PO (16:26)
[2016-12-01] MEDS ORDERED: POTASSIUM CHLORIDE 10 MEQ TABER PO SCH (16:30)
[2016-12-01] MEDS ORDERED: MAG SULF 2000 MG/WATER PREMIX 100 ML IV SCH (17:00)
--- NOTE | 2016-12-01 17:09 | NUR ---
PT REFUSED METFORMIN, HE STATED HE WAS NOT GOING TO TAKE BECAUSE HE FEELING SHAKY AND HE THOUGHT HIS BLOOD SUGAR WAS TOO LOW.
--- NOTE | 2016-12-01 18:44 | NUR ---
PT DISCHARGE INSTRUCTIONS GIVEN, ID WRIST BAND REMOVED, IV REMOVED, CATHETER TIP INTACT, PT WAS PROVIDED WITH BUS PASS.
--- NOTE | 2016-12-01 19:05 | NUR ---
PT STATED SECURITY WAS HOLDING A KNIFE FOR HIM, I PAGED SECURITY, PT SAID HE COULD NOT WAIT AND NEEDED TO LEAVE TO CATCH THE BUS. PT STABLE UPON DISCHARGE
== END 2016-12-01 19:05 | disposition home or self-care (01) | DRG 420 ==
LOC: MED 02:15 → MIC 03:47 → MTU 19:10
PROVIDERS: ADMIT Internal Medicine Pulmonary Disease; ATTEND Internal Medicine Pulmonary Disease
DX: E10.10 Type 1 diabetes mellitus with ketoacidosis without coma (principal); G93.41 Metabolic encephalopathy; E87.5 Hyperkalemia; E83.42 Hypomagnesemia; J45.909 Unspecified asthma, uncomplicated; E87.6 Hypokalemia; Z79.4 Long term (current) use of insulin

== ENCOUNTER 2017-12-21 01:10 | Emergency (ER) | payer OTHER ==
[~2017-12-21] VITALS: Ht 182.9 cm; Wt 65.8 kg
[~2017-12-21 01:10] MED LIST changes: -LANTUS INS100 UNITS/ SUBQ; +LANTUS SUBQ; +METF850T PO; -NOVOLIN R100 U/ML SUBQ; -NOVOLIN R100 UNITS/ SUBQ; +SLIDE SUBQ
[2017-12-21 01:20] VITALS: BP 125/76
[2017-12-21] MEDS: INSULIN REGULAR, HUMAN 100 UNIT/ML VIAL SUBQ ONE (02:48)
[2017-12-21] MEDS ORDERED: NACL 0.9% 1,000 ML IV SCH (05:28)
[2017-12-21 05:53] LABS: BASOPHILS % (AUTO) 0.3 % (0.0-2.0); EOSINOPHILS # (AUTO) 0.1 K/uL (0-0.4); EOSINOPHILS % (AUTO) 1.4 % (0.0-4.0); HEMATOCRIT 41.9 % (36-52); HEMOGLOBIN 14.2 g/dL (12.0-18.0); LYMPHOCYTES # (AUTO) 1.6 K/uL (2.0-11.5); MEAN CORPUSCULAR HEMOGLOBIN 31 pg (27-31); MEAN CORPUSCULAR HGB CONC 34 g/dL (33-37); MEAN CORPUSCULAR VOLUME 91.1 fL (80-94); MONOCYTES # (AUTO) 0.5 K/uL (0.8-1.0); MONOCYTES % (AUTO) 7.2 % (1.7-9.3); NEUTROPHILS # (AUTO) 5.2 K/uL (1.8-7.7); NEUTROPHILS % (AUTO) 69.1 % (42.2-75.2); PLATELET COUNT (AUTO) 264 K/uL (140-450); RED CELL DISTRIBUTION WIDTH 12.9 % (11.6-13.7); WHITE BLOOD COUNT (AUTO) 7.5 K/uL (4.8-10.8)
[2017-12-21 06:07] LABS: ANION GAP 11.8 (8-16); CARBON DIOXIDE 27.9 mmol/L (21-32); CREATININE 0.9 mg/dL (0.7-1.3); POTASSIUM 3.7 mmol/L (3.5-5.1)
[2017-12-21 06:13] LABS: ALBUMIN 3.3 g/dL (3.4-5.0); TOTAL BILIRUBIN 0.4 mg/dL (0.0-1.0)
[2017-12-21 07:30] VITALS: BP 116/69
== END 2017-12-21 07:30 | disposition home or self-care (01) ==
LOC: MED 01:10
DX: T63.301A Toxic effect of unspecified spider venom, accidental (unintentional), initial encounter (principal); J45.909 Unspecified asthma, uncomplicated; E11.9 Type 2 diabetes mellitus without complications; Z79.4 Long term (current) use of insulin; Y92.89 Other specified places as the place of occurrence of the external cause
CPT/HCPCS: 36415; 80053; 82009; 82948; 83690; 85025; 96372; 99284; J1815

== ENCOUNTER 2018-05-27 13:30 | Inpatient (IN) | payer OTHER ==
[2018-05-27] VITALS (25 sets, daily range): BP systolic 76–103; BP diastolic 38–65
[~2018-05-27] VITALS: Ht 177.8 cm; Wt 69.9 kg
--- NOTE | 2018-05-27 13:30 | NUR ---
PT BIBA ALS TO BED 11
[2018-05-27] MEDS ORDERED: NACL 0.9% 2,000 ML IV SCH (13:37)
[2018-05-27] MEDS ORDERED: NACL 0.9% 1,500 ML IV SCH (13:37)
[2018-05-27] MEDS ORDERED: NACL 0.9% 1,000 ML IV SCH (13:37)
[2018-05-27] MEDS ORDERED: THIAMINE 200 MG/2 ML VIAL IM ONE (13:40)
[2018-05-27] MEDS ORDERED: INSULIN REGULAR, HUMAN 100 UNIT/ML VIAL IVP ONE (13:40)
--- NOTE | 2018-05-27 13:40 | NUR ---
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 2.5 MG OF NARCAN GIVEN AND PATIENT GCS WENT FROM 8 TO 10. DRUG PARAPHINALIA FOUND AROUND PATIENT. KNOWN HISTORY OF DIABETES/HOMELESSNESS. HOOKED PT TO BEDSIDE MONITOR,HYPOTENSIVE BP 80S/30S, O2 NC 2L/MIN,DEEP BREATHING NOTED,O2 SATS 98%. PT HAS IV TO RIGHT AC # 18. ER MD AT BEDSIDE TO ASSESS PT. PT RESPOSIVE TO DEEP PAIN STIMULI.
--- NOTE | 2018-05-27 13:45 | NUR ---
INSERTED F/C. IV TO LEFT AC #18 AND LEFT HAND # 20 AND HANGED 0.9 NS WIDE OPEN ORDERED.
[2018-05-27] MEDS ORDERED: SODIUM BICARBONATE 8.4% PFS 50 MEQ/50 ML SYR IVP ONE ×3 (14:05→14:30)
[2018-05-27 14:11] LABS: HEMATOCRIT 48.8 % (36-52); HEMOGLOBIN 14.6 g/dL (12.0-18.0); MEAN CORPUSCULAR HEMOGLOBIN 32 pg (27-31); MEAN CORPUSCULAR HGB CONC 30 g/dL (33-37); MEAN CORPUSCULAR VOLUME 106.9 fL (80-94); PLATELET COUNT (AUTO) 392 K/uL (140-450); RED BLOOD CELL COUNT(AUTO) 4.57 MIL/uL (4.20-6.10); RED CELL DISTRIBUTION WIDTH 14.1 % (11.6-13.7)
[2018-05-27 14:20] LABS: WHITE BLOOD COUNT (AUTO) 37.3 K/uL (4.8-10.8)
[2018-05-27 14:22] LABS: ACETONE, SERUM MODERATE (NEGATIVE)
[2018-05-27 14:26] LABS: BARBITURATE, URINE NEG. ng/ml (NEG <=200); BENZODIAZEPINE, URINE NEG. ng/mL (NEG <=200); CANNABINOID, URINE NEG. ng/mL (NEG <=50); COCAINE, URINE NEG. ng/mL (NEG <=300); OPIATE, URINE NEG. ng/mL (NEG <=2000); PHENCYCLIDINE SCREEN,URINE NEG. ng/mL (NEG <=25)
--- NOTE | 2018-05-27 14:26 | NUR ---
TEMP. 87.[address] ONTIVEROS MADE AWARE/EUNICERN
--- NOTE | 2018-05-27 14:26 | NUR ---
WBC 37.3 REPORTED BY KENNY IN LAB
[2018-05-27] MEDS ORDERED: NACL 0.9% 1,000 ML IV ONE (14:30)
--- NOTE | 2018-05-27 14:32 | NUR ---
APPLIED PT TO CARLOS HUGGER WARM BLANKET TO WARM PT.
[2018-05-27 14:33] LABS: ACETAMINOPHEN 3.9 ug/ml (10-30); ASPARTATE AMINOTRANSFERASE 61 U/L (15-37); CHLORIDE 85 mmol/L (98-107); CREATININE 2.7 mg/dL (0.7-1.3); GFR ARICAN-AMERICAN 35 mL/min (>90); MAGNESIUM 3.6 mg/dL (1.8-2.4); SALICYLATE 5.2 mg/dL (2.8-20.0); TOTAL BILIRUBIN 0.5 mg/dL (0.0-1.0); UREA NITROGEN, BLOOD 52 mg/dL (7-18)
[2018-05-27 14:34] LABS: BILIRUBIN,URINE 1+ (NEGATIVE); BLOOD, URINE TRACE-I (NEGATIVE); LEUKOCYTE ESTERASE ,URINE NEGATIVE (NEGATIVE); NITRITE, URINE NEGATIVE (NEGATIVE); UGLUCOSE 3+ (NEGATIVE)
[2018-05-27 14:35] LABS: APPEARANCE,URINE HAZY (CLEAR); COLOR,URINE YELLOW (YELLOW)
[2018-05-27 14:39] LABS: LYMPHOCYTES % (MANUAL) 9 % (20-46); MONOCYTES % (MANUAL) 1 % (5-12)
[2018-05-27 14:41] LABS: ANION GAP 38.8 (8-16); CARBON DIOXIDE 4.6 mmol/L (21-32); GLUCOSE 1190 mg/dL (74-106); POTASSIUM 7.4 mmol/L (3.5-5.1); SODIUM SERUM 121 mmol/L (136-145)
[2018-05-27] MEDS ORDERED: PIPERACILLIN/TAZOBACTAM 3.375 GM in DEXTROSE 5% 50 ML IV ONE (15:00)
[2018-05-27] MEDS ORDERED: INSULIN REGULAR, HUMAN 100 UNIT in NACL 0.9% 100 ML IV ONE ×2 (15:00)
[2018-05-27 15:04] LABS: WBC,URINE 0-5 /HPF (0-5)
[2018-05-27 15:05] LABS: URIC ACID 12.4 mg/dL (2.6-7.2)
[2018-05-27] MEDS ORDERED: PIPERACILLIN/TAZOBACTAM 3.375 GM VIAL IV ONE (15:13)
[2018-05-27] MEDS ORDERED: LORazepam 2 MG/ML VIAL IVP ONE (15:20)
--- NOTE | 2018-05-27 15:45 | NUR ---
DR. DONNELLY STARTS CENTRAL LINE INSERTION.
--- NOTE | 2018-05-27 16:30 | NUR ---
CENTRAL LINE INSERTION DONE.
--- NOTE | 2018-05-27 16:35 | NUR ---
X RAY AT BEDSIDE.
--- NOTE | 2018-05-27 16:42 | NUR ---
RECHECKED RECTAL TEMP 94.5
--- NOTE | 2018-05-27 17:16 | NUR ---
rechecked bs, still too high to read. dr. ramos made aware.
--- NOTE | 2018-05-27 17:17 | NUR ---
empty urine output 2600 mls.
--- NOTE | 2018-05-27 17:20 | NUR ---
notified dr. ramos pt vital signs changed.
[2018-05-27 17:21] LABS: ANION GAP 31.1 (8-16); CARBON DIOXIDE 10.3 mmol/L (21-32); CREATININE 1.9 mg/dL (0.7-1.3); POTASSIUM 4.4 mmol/L (3.5-5.1)
--- NOTE | 2018-05-27 17:37 | NUR ---
pt opens eyes, oriented pt then pt fall asleep again.
[2018-05-27] MEDS ORDERED: HYDROcodone/APAP 5/325 MG 1 TAB TAB PO PRN (17:40)
[2018-05-27] MEDS ORDERED: MORPHINE SULFATE 2 MG/ML SYR IVP PRN (17:40)
[2018-05-27] MEDS ORDERED: DEXTROSE 50% 50 ML SYR IVP PRN (17:40)
[2018-05-27] MEDS ORDERED: HYDROCORTISONE NA SUCC 100 MG/2 ML VIAL IV ONE (17:50)
[2018-05-27] MEDS: BLOOD GLUCOSE MONITORING 1 DEV DEV FS SCH ×7 (18:00→23:40)
--- NOTE | 2018-05-27 18:06 | NUR ---
PT TAKEN TO ICU BY RN EUNICE AND EMT DENYS
--- NOTE | 2018-05-27 18:20 | NUR ---
NOTIFIED DR. LAL AND SONNY RN, SOLU-CORTET WAS UNABLE TO GIVE TO PT DUE TO PT IS ICU STATUS. I WAS UNABLE TO GET THIS MEDICATION FROM [facility]. CALLED PHARMACY.
--- NOTE | 2018-05-27 18:25 | NUR ---
RECEIVED PT TRANSFERRED FROM ED VIA GURNEY, REPORT OBTAINED AT BEDSIDE, PT IS DROWSY, RESPOND TO NAME, PERRL, ABLE TO FOLLOW COMMANDS SOMETIMES, NO S/S OF DISTRESS, CLEAR LUNG SOUNDS INOCENCIO., ON O2 AT 2L VIA NC, O2 SAT 99%, ST ON RELASTER, SOFT ABDOMEN WITH ACTIVE BOWEL SOUNDS, F/C IN PLACE WITH CLEAR YELLOW URINE VIA GRAVITY, GENERALIZED WEAKNESS TO ALL EXTREMITIES, SKIN IS WARM AND DRY TO TOUCH, REDNESS TO RLE NOTED, CENTRAL LINE TO RIJ, TLC, PATENT AND SL, IV SITE TO RAC, 18GA, RUNNING INSULIN DRIP AT 10 UNITS/HR AND NS AT 100ML/HR, IV SITE TO LAC, 18GA AND LEFT HAND 20GA, PATENT AND SL. HOB ELEVATED 30 DEGREES, POSITION CHANGED FOR COMFORT, SAFETY MEASURES IN PLACE, WILL CONTINUE TO MONITOR.
--- NOTE | 2018-05-27 18:25 | NUR ---
TRANSFERRED PT TO ICU BED 5 BY ARUN ACCOMPANIED WITH RN AND LIBAN. PT IS MORE AWAKE , ALERT AT THIS MOMENT. RESPOND TO VERBAL STIMULI. REPORT GIVEN TO SONNY ROB. ALL PERSONAL BELONGINGS WITH PT.
--- NOTE | 2018-05-27 18:58 | NUR ---
SCARLETT DONE. RESULTS GIVEN TO MD LAL.
[2018-05-27] MEDS: NACL 0.9% 1,000 ML IV SCH ×2 (19:00→22:38)
--- NOTE | 2018-05-27 19:05 | NUR ---
DR. KAUR CAME IN TO SEE PT AT BEDSIDE, GOING TO INTUBATE PT.
--- NOTE | 2018-05-27 19:10 | NUR ---
RECEIVED BEDSIDE REPORT FROM MORNING SHIFT RNSONNY. PT IS LETHARGIC, NONVERBAL, UNABLE TO RESPOND TO COMMANDS. BP=98/56, SATING 98%, TEMP 97.7, HR 130, RR=20. ST ON SOFT SHOE DANCER. RIGHT IJ IN TACT, INFUSING INSULIN AT 10CC/HR, NS AT 200CC/HR. RIGHT AC 18 GAUGE, L AC 18 GAUGE, LEFT HAND [address]AUGE[address]TACT. ELL[address] IN PLACE, URINE IS MARIA A COLOR. SKIN IS INTACT, BRUISING NOTED ON RIGHT BOTTOM LEG, NONBLANCHABLE REDNESS. DR. GARCIA AT BEDSIDE PLAN TO INTUBATE PATIENT.
--- NOTE | 2018-05-27 19:15 | NUR ---
REPORT GIVEN TO FAMILY ADVOCATE NURSE FOR CONTINUE OF CARE.
--- NOTE | 2018-05-27 19:20 | NUR ---
MD GARCIA IN TO SEE PT. SHOWED MD PANTOJA.DR GARCIA AT BEDSIDE TO INTUBATE PT WITH CHARGE NURSE AND RT SADE WELL. PT INTUBATED WITH 8.0 ETT AT 25 CM AT LIP. ETT IS IN PLACE AND SECURED BY ANCHOR FAST. TUBE PLACEMENT CONFIRMED BY BILATERAL BREATH SOUNDS AND COLOR CHANGE. SETTINGS PER MD GARCIA CHARTED. VENT IS CONNECTED TO RED OUTLET. ALARMS AUDIBLE. AMBU BAG AT BEDSIDE. NO SOB OR DISTRESS NOTED. WILL CONTINUE TO MONITOR.
[2018-05-27] MEDS ORDERED: PROPOFOL 1000 MG/100 ML PREMIX 100 ML IV ONE (19:33)
[2018-05-27] MEDS: PROPOFOL 1000 MG/100 ML PREMIX 100 ML IV PRN (19:35)
[2018-05-27] MEDS ORDERED: MIDAZOLAM 2 MG/2 ML VIAL ONE (19:39)
--- NOTE | 2018-05-27 19:40 | NUR ---
1914: DR GARCIA IN TO SEE PT, ORDERS GIVEN FOR INTUBATION; RSI KIT @ BEDSIDE. RT JESSICAA AND RT SADE STANDBY WITH [facility] VENTILATOR, AMBU BAG SETUP. 1917: 20 MG ETOMIDATE GIVEN IVP; THEN 20 MG ROCURONIUM GIVEN IVP @ 1918 1920: DR. GARCIA SUCTIONED DARK BROWN LIQUID WITH YANKEUR. DR. GARCIA PLACED 8.0 ETT @ 26 CM @ LIP, RT AUSCULTATED FOR POSITIVE PLACEMENT. VENT SETTINGS: AC 40% FIO2, RATE 20 PEEP 5 TV 500 1930: PT THRASHING AROUND TRYING TO GRAB ETT. DR. GARCIA GAVE ORDERS FOR VERSED 4MG IVP. 4 MG VERSED GIVEN TO PT 1931: DR LAL @ BEDSIDE 1934: PROPOFOL DRIP STARTED @ 1934 @ 10 MCG/KG/MIN; DRY WEIGHT: 58.9 KG 1937: OGT 16 F PLACED; AUSCULTATED FOR POSITIVE PLACEMENT, ABIGAIL VALVE ATTACHED. 1939: RADIOLOGY @ BEDSIDE FOR CXR; DR GARCIA CONFIRMED PLACEMENT VIA XRAY FILM. PT REPOSITIONED FOR COMFORT. SAFETY PRECAUTIONS IN PLACE. BED LOCKED IN LOWEST POSITION. WILL CONTINUE TO OBSERVE.
--- NOTE | 2018-05-27 19:40 | NUR ---
DR GARCIA CONFIRMED PLACEMENT OF OROGASTRIC TUBE IN STOMACH, VIA XRAY FILM @ BEDSIDE. OK TO USE PER .
[2018-05-27] MEDS ORDERED: MIDAZOLAM 2 MG/2 ML VIAL IV ONE (19:45)
[2018-05-27] MEDS ORDERED: ETOMIDATE 20 MG/10 ML VIAL IVP ONE (19:45)
[2018-05-27] MEDS ORDERED: ROCURONIUM 50 MG/5 ML VIAL IV ONE (19:45)
--- NOTE | 2018-05-27 20:26 | NUR ---
LAB AT BEDSIDE TO SEEP PATIENT.
[2018-05-27 20:34] LABS: BASOPHILS # (AUTO) 0.2 K/uL (0.00-0.22); BASOPHILS % (AUTO) 1.2 % (0.0-2.0); EOSINOPHILS % (AUTO) 0.1 % (0.0-4.0); HEMOGLOBIN 13.6 g/dL (12.0-18.0); LYMPHOCYTES # (AUTO) 1.5 K/uL (2.0-11.5); LYMPHOCYTES % (AUTO) 10.9 % (20.5-51.1); MEAN CORPUSCULAR HEMOGLOBIN 32 pg (27-31); MEAN CORPUSCULAR HGB CONC 35 g/dL (33-37); MEAN CORPUSCULAR VOLUME 91.1 fL (80-94); MONOCYTES # (AUTO) 0.3 K/uL (0.8-1.0); MONOCYTES % (AUTO) 2.1 % (1.7-9.3); NEUTROPHILS # (AUTO) 11.7 K/uL (1.8-7.7); NEUTROPHILS % (AUTO) 85.7 % (42.2-75.2); PLATELET COUNT (AUTO) 193 K/uL (140-450); RED BLOOD CELL COUNT(AUTO) 4.28 MIL/uL (4.20-6.10); RED CELL DISTRIBUTION WIDTH 12.4 % (11.6-13.7); WHITE BLOOD COUNT (AUTO) 13.7 K/uL (4.8-10.8)
[2018-05-27 20:49] LABS: PROTHROMBIN TIME 11.3 secs (10.8-13.4)
[2018-05-27 20:50] LABS: CREATININE 1.8 mg/dL (0.7-1.3)
[2018-05-27 20:51] LABS: MAGNESIUM 1.9 mg/dL (1.8-2.4); PHOSPHORUS 2.1 mg/dL (2.5-4.9)
[2018-05-27] MEDS ORDERED: cefTRIAXone 1,000 MG VIAL ONE (20:52)
--- NOTE | 2018-05-27 20:58 | NUR ---
VBG DRAWN BY DARRON ROJAS. RESULTS GIVEN TO MD LAL AND UPLOADED ON [employer]. PT IS COMFORTABLE. NO SOB OR DISTRESS NOTED. WILL CONTINUE TO MONITOR.
[2018-05-27] MEDS ORDERED: PIPER/TAZO 3.375GM/D5W PREMIX 50 ML IV SCH (21:00)
[2018-05-27] MEDS ORDERED: POTASSIUM PHOSPHATE 15 MM in NACL 0.9% 250 ML IV ONE (21:00)
[2018-05-27] MEDS ORDERED: NOREPINEPHRINE 4 MG in DEXTROSE 5% 250 ML IV PRN (21:25)
[2018-05-27] MEDS: LORazepam 2 MG/ML VIAL IM/IVP PRN (21:42)
[2018-05-27] MEDS ORDERED: NOREPINEPHRINE 4 MG/4 ML VIAL IV ONE (21:42)
[2018-05-27] MEDS ORDERED: fentaNYL 1 MG in NACL 0.9% 80 ML IV PRN (22:05)
--- NOTE | 2018-05-27 22:05 | NUR ---
PAGED DR GARCIA, INFORMED MD SBP 70-80 MMHG, MAP <60 AND HR TACHYCARDIC 140-150S. SUGGESTED NEOSYNEPHRINE FOR BP SUPPORT AND FENTANYL DRIP FOR PAIN/SEDATION. MD AGREEABLE/ORDERED NEOSYNEPHRINE DRIP AND FENTANYL DRIP. WILL CARRY OUT.
[2018-05-27] MEDS ORDERED: PHENYLEPHRINE 10 MG/ML VIAL ONE (22:26)
[2018-05-27] MEDS: PHENYLEPHRINE 40 MG in NACL 0.9% 250 ML IV PRN ×2 (22:55→23:58)
[2018-05-27] MEDS: INSULIN REGULAR, HUMAN 100 UNIT in NACL 0.9% 100 ML IV SCH ×2 (23:52)
[2018-05-28] VITALS (105 sets, daily range): BP systolic 80–130; BP diastolic 51–93
[2018-05-28] MEDS: PROPOFOL 1000 MG/100 ML PREMIX 100 ML IV PRN ×4 (00:17→22:18)
[2018-05-28 00:32] LABS: ANION GAP 15.3 (8-16); CARBON DIOXIDE 22.3 mmol/L (21-32); CREATININE 1.5 mg/dL (0.7-1.3); POTASSIUM 3.6 mmol/L (3.5-5.1)
--- NOTE | 2018-05-28 00:34 | NUR ---
VAP ORAL CARE PROVIDED AND PT REPOSITINED. D51/2 NS INFUSING AT 200CC/HR PER DKA PROTOCOL. NEOSYNEPHRINE AT 100MCG/MIN, PROPOFOL AT 45MCG/MIN, FENTANYL AT 50MCG/MIN TO RIGHT IJ. INSULINR REMAINS INFUSING AT 10 UNITS/HR. TO RIGHT WRIST PIV. PHOSPHOROUS INFUSING INTO LEFT AC PIV AT 42.5CC/HR. FLACC 0. 1 BM DARK BROWN, LOOSE, GRAINY PARTICLES IN STOOL/MODERATE- LARGE AMOUNT. Addendum: 05/28/18 at 0302 by Kathie Prajapati RN INSULIN INFUSING AT 2.9ML/HR.
[2018-05-28 00:35] LABS: MAGNESIUM 1.5 mg/dL (1.8-2.4); PHOSPHORUS 1.6 mg/dL (2.5-4.9)
[2018-05-28] MEDS: BLOOD GLUCOSE MONITORING 1 DEV DEV FS SCH ×18 (00:56→22:05)
[2018-05-28] MEDS: NACL 0.9% 1,000 ML IV SCH (03:38)
[2018-05-28 04:17] LABS: BASOPHILS # (AUTO) 0.1 K/uL (0.00-0.22); BASOPHILS % (AUTO) 0.7 % (0.0-2.0); EOSINOPHILS % (AUTO) 0.2 % (0.0-4.0); HEMOGLOBIN 14.6 g/dL (12.0-18.0); LYMPHOCYTES % (AUTO) 6.7 % (20.5-51.1); MEAN CORPUSCULAR HEMOGLOBIN 32 pg (27-31); MEAN CORPUSCULAR HGB CONC 36 g/dL (33-37); MEAN CORPUSCULAR VOLUME 90.2 fL (80-94); MONOCYTES # (AUTO) 1.6 K/uL (0.8-1.0); MONOCYTES % (AUTO) 10.4 % (1.7-9.3); NEUTROPHILS # (AUTO) 12.2 K/uL (1.8-7.7); PLATELET COUNT (AUTO) 235 K/uL (140-450); RED BLOOD CELL COUNT(AUTO) 4.55 MIL/uL (4.20-6.10); RED CELL DISTRIBUTION WIDTH 12.7 % (11.6-13.7); WHITE BLOOD COUNT (AUTO) 14.9 K/uL (4.8-10.8)
[2018-05-28 04:29] LABS: ANION GAP 16.1 (8-16); CARBON DIOXIDE 20.7 mmol/L (21-32); CREATININE 1.3 mg/dL (0.7-1.3); POTASSIUM 3.8 mmol/L (3.5-5.1)
[2018-05-28] MEDS ORDERED: PHENYLEPHRINE 10 MG/ML VIAL ONE (04:31)
[2018-05-28 04:34] LABS: MAGNESIUM 1.5 mg/dL (1.8-2.4); PHOSPHORUS 2.8 mg/dL (2.5-4.9)
--- NOTE | 2018-05-28 04:37 | NUR ---
BP 89/53, SATING 100%, RR=20, WM=924. RASS -3.
[2018-05-28] MEDS: PHENYLEPHRINE 40 MG in NACL 0.9% 250 ML IV PRN ×3 (04:53→17:03)
--- NOTE | 2018-05-28 06:30 | NUR ---
RECEIVED PHONE CALL FROM FRIEND, VICKY WHO STATED SHE CALLED EMS FOR PT. SHE DID NOT WANT TO DISCLOSE HER CONTACT INFORMATION. SHE DID SAY THAT SHE WOULD TRY TO GET A HOLD OF FAMILY TODAY.
--- NOTE | 2018-05-28 06:40 | NUR ---
RECEIVED PT ON [place] ON A/C 20 VT 500 PEEP 5 FIO2 30 , ALARMS ARE ON AND AUDIBLE BS CLEAT PTS ET TUBE SIZE 8.0 IS SCRE 25 [address] FAST IN PLACE, PT IN HF QUIET BMV HOB VENT PLUGGED INT RED OUTLET
[2018-05-28] MEDS ORDERED: PIPER/TAZO 3.375GM/D5W PREMIX 50 ML IV SCH (07:10)
--- NOTE | 2018-05-28 07:23 | NUR ---
GAVE BEDSIDE REPORT TO MORNING SHIFT PING ROB.
--- NOTE | 2018-05-28 07:55 | NUR ---
DR. HOLLY AT BEDSIDE. HOLD CT HEAD FOR NOW WILL RESOLVE PATIENT'S DKA FIRST ACCORDING TO PHYSICIAN
--- NOTE | 2018-05-28 08:00 | NUR ---
PATIENT OPENS EYES AND LOCALIZES TO PAIN, ON DIPRIVAN 35MCG/KG/HR. DRY WEIGHT 59 KGS, FENTANYL 60 MCG/HR., ORALLY INTUBATED 25 IN THE TEETH ON VENTILATOR AC 20 FIO2 30%, PEEP5 SO2 99%, CLEAR BREATH SOUNDS ANTERIORLY ON ALL LOBES, ON NEOSYNEPHRINE 125 MCGS/MIN., SINUS TACHYCARDIA IN THE MONITOR 131 BPM, SLIGHTLY FEBRILE 101.4 TEMPORAL, ON INSULIN DRIP AT 5.6 UNITS/HR., ON Q 1HOURLY BLOOD SUGAR CHECK, WITH OROGASTRIC TUBE -PATENT ON AUSCULTATION, NO RESIDUALS ON ASPIRATION, NPO AT THIS TIME, WITH ELLISON CATHETER OMANI 16, YELLOW URINE IN THE UROMETER NOTED, RIGHT INTERNAL JUGULAR TRIPLE LUMEN CENTRAL LINE, RIGHT WRIST GAUGE 20, RIGHT ARM GAUGE 18, LEFT HAND GAUGE 20-ALL SITES ASYMPTOMATIC, BLUISH DISCOLORATION AT RIGHT LEG, REDNESS NOTED IN RIGHT KNEE, AND TORSO THAT LOOKS LIKE FROM SUN EXPOSURE DUE TO THE SHIRT LINES Addendum: 05/28/18 at 1025 by Maine Kinney RN CORRECTION: INSULIN DRIP AT 5.9 UNITS/HR
--- NOTE | 2018-05-28 08:01 | NUR ---
PATIENT HAS GAUGE 20 AT RIG HAND SALINE LOCKED-SITE ASYMPTOMATIC, SMALL BLISTERS AT LEFT LATERAL BACK
--- NOTE | 2018-05-28 08:07 | NUR ---
PATIENT HAS BEEN SCREENED AND CATEGORIZED HIGH NUTRITION RISK. PATIENT WILL BE SEEN WITHIN 1-2 DAYS OF ADMISSION. 05/28/18-05/29/[address]
[2018-05-28] MEDS: ENOXAPARIN 40 MG/0.4 ML SYR SUBQ SCH (08:14)
[2018-05-28] MEDS: PIPER/TAZO 3.375GM/D5W PREMIX 50 ML IV SCH ×3 (08:15→20:02)
[2018-05-28] MEDS: PANTOPRAZOLE 40 MG INJ VIAL IVP SCH (08:58)
[2018-05-28] MEDS: LACTOBACILLUS RHAMNOSUS GG 1 EACH CAP PO SCH (09:00)
[2018-05-28] MEDS ORDERED: MAG SULF 2000 MG/WATER PREMIX 50 ML IV SCH (09:00)
--- NOTE | 2018-05-28 09:05 | NUR ---
DR. JIMENEZ AT BEDSIDE. UPDATED OF PATIENT'S CONDITION. ORDERS RECEIVED
--- NOTE | 2018-05-28 09:06 | NUR ---
DR. JIMENEZ WANTS PATIENT TO BE WEANED OFF FROM FENTANYL DRIP. WILL DECREASE FENTANYL UNTIL OFF
[2018-05-28 09:25] LABS: ANION GAP 13.8 (8-16); CARBON DIOXIDE 23.4 mmol/L (21-32); CREATININE 1.2 mg/dL (0.7-1.3); POTASSIUM 3.2 mmol/L (3.5-5.1)
[2018-05-28] MEDS: LORazepam 2 MG/ML VIAL IM/IVP PRN (09:40)
[2018-05-28] MEDS: ACETAMINOPHEN 650 MG/20.3 ML UDC GT PRN ×2 (09:40→18:03)
[2018-05-28 09:41] LABS: MAGNESIUM 1.5 mg/dL (1.8-2.4); PHOSPHORUS 2.8 mg/dL (2.5-4.9)
--- NOTE | 2018-05-28 10:10 | NUR ---
DR. HERZOG AWARE OF LATEST POTASSIUM LEVEL
[2018-05-28] MEDS: DEXT 5% / NACL 0.45% 1,000 ML IV SCH ×2 (10:20→18:07)
--- NOTE | 2018-05-28 11:47 | NUR ---
FOLLOWED UP PHARMACY FOR THE POTASSIUM+LIDOCAINE BAG IT IS NOT YET AVAILABLE AT THIS TIME
--- NOTE | 2018-05-28 11:57 | NUR ---
BEDSIDE ECHO ONGOING. CYBER SECURITY INSTRUCTOR AT BEDSIDE. POTASSIUM CORRECTION IV STARTED
[2018-05-28] MEDS ORDERED: POTASSIUM CHLORIDE 40 MEQ, LIDOCAINE 1% 25 MG in NACL 0.9% 250 ML IV SCH (12:00)
[2018-05-28 12:58] LABS: CARBON DIOXIDE 21.4 mmol/L (21-32); CREATININE 1.1 mg/dL (0.7-1.3); POTASSIUM 3.4 mmol/L (3.5-5.1)
[2018-05-28 13:02] LABS: MAGNESIUM 2.5 mg/dL (1.8-2.4); PHOSPHORUS 3.1 mg/dL (2.5-4.9)
--- NOTE | 2018-05-28 13:19 | NUR ---
05/28/18 RD INITIAL ASSESSMENT COMPLETED PLEASE REFER TO NUTRITION ASSESSMENT UNDER CARE ACTIVITY FOR ESTIMATED NUTRITIONAL NEEDS. 1. [facility] IS MEDICALLY STABLE 2. PROVIDE DIABETES EDUCATION WHEN PATIENT IS MORE ALERTED 3. RD TO FOLLOW-UP 2-3 DAYS, HIGH RISK RAGHAVENDRA CALI, RD
--- NOTE | 2018-05-28 13:33 | NUR ---
Environmental Analyst Note: I received a call from patient's mother Jacklyn Vazquez . She stated the person who found him around or near [facility] contacted her daughter (Rhonda daughter) via Facebook and told her patient was brought to [facility]. Jacklyn reported patient chooses to live in the streets. She shared with me patient use to live with her. However, she decided to tell him to leave her home due to his alcohol abuse. She sees patient once in a while. She saw patient last Sunday05/24/18. She told me she has legal custody of his 8 year old daughter. She does not know if patient uses illicit drugs nor knows if patient has a mental illness or mental illnesses. She stated she is planning to call patient�s father, Yunior Moncada and come to hospital and speak with MD regarding patient�s current medical condition. Tester Equipment and/or Cartridge Belt Puncher will follow up as needed. Addendum: 05/28/18 at 1347 by Rachel ALLEN Jacklyn told me patient refuses to seek medical care, including medical care for diabetes. Addendum: 05/31/18 at 1408 by Rachel Lul SS Late entry for 05/28/18: Per Jacklyn, she suspects patient uses illicit drugs because he appears to be high at times.
--- NOTE | 2018-05-28 14:05 | NUR ---
PAGED DR. JIMENEZ AND HE CALLED BACK. MADE HIM AWARE OF REPEAT AMMONIA LEVEL, LATEST ANION GAP AND PATIENT STILL TACHYCARDIC IN THE 120s, PATIENT NO LONGER FEBRILE AFTER LAST ACETAMINOPHEN, MAP RANGE 70-80 ON NEOSYNEPHRINE. RECEIVED ORDERS TO START CEFTRIAXONE 1 GM IV ONCE DAILY, 1L IV BOLUS OF NORMAL SALINE-READBACK AND VERIFIED
[2018-05-28] MEDS ORDERED: NACL 0.9% 1,000 ML IV SCH (14:10)
--- NOTE | 2018-05-28 14:18 | NUR ---
ZACK OF PHARMACY CALLED AND ACCORDING TO HIM HE WILL PAGE AND TALK TO DR. JIMENEZ REGARDING PATIENT GETTING CEFTRIAXONE ON TOP OF ZOSYN
[2018-05-28 16:18] LABS: ANION GAP 11.6 (8-16); CARBON DIOXIDE 23.3 mmol/L (21-32); CREATININE 0.9 mg/dL (0.7-1.3); POTASSIUM 3.9 mmol/L (3.5-5.1)
[2018-05-28 16:51] LABS: MAGNESIUM 2.3 mg/dL (1.8-2.4); PHOSPHORUS 2.5 mg/dL (2.5-4.9)
[2018-05-28] MEDS: INSULIN REGULAR, HUMAN 100 UNIT in NACL 0.9% 100 ML IV SCH ×2 (18:09)
--- NOTE | 2018-05-28 18:30 | NUR ---
PATIENT CLEANED AFTER HE HAD BM BROWN SOFT IN MODERATE AMOUNT
--- NOTE | 2018-05-28 18:45 | NUR ---
INFORMED DR. LAL TO CHANGE BLOOD SUGAR CHECK STARTING 1899. BLOOD SUGAR RIGHT NOW 121
--- NOTE | 2018-05-28 19:03 | NUR ---
Received pt stable on vent support at documented settings, suctioned scant amounts of thin clear secretions, no resp distress or SOB noted at this time, ETT 8.0 secured at 25 cm at the teeth, alarms set and audible, ambu bag at bedside, vent plugged into red outlet, cont pulse ox on, will cont to monitor.
--- NOTE | 2018-05-28 19:15 | NUR ---
RECEIVED REPORT FROM DARRON FENG. INITIAL ASSESSMENT COMPLETED. PT SEDATED. RASS -3. ET TO VENT FIO2 30% TV 500 AC [address]. ATTACHED TO HOUSEHOLD CHORES, PULSE OXIMETER. IV ACCESS PATENT, INTACT, RIGHT IJ TLC ON NEOSYNEPHRINE, PORPOFOL DRIP. RIGHT AC 18 G ON SALINE LOCK, RGHT FOREARM 20 G ON SALINE LOCK, RIGHT WRIST 20G ON INSULIN DRIP. ELLISON CATH IN PLACE. BED IN LOW POSITION, SAFETY MEASURE ENSURE. WILL CONTINUE TO MONITOR.
[2018-05-28] MEDS ORDERED: BLOOD GLUCOSE MONITORING 1 DEV DEV FS SCH ×2 (19:40→21:00)
--- NOTE | 2018-05-28 19:51 | NUR ---
FAMILY @ BEDSIDE. MOTHER KATIA BRIDGES AND SISTER ALIA VIEYRA [phone] LAL UPDATED REGARDING PT STATUS.
[2018-05-28 20:22] LABS: ANION GAP 12.7 (8-16); CARBON DIOXIDE 22.9 mmol/L (21-32); POTASSIUM 3.6 mmol/L (3.5-5.1)
[2018-05-28 20:23] LABS: MAGNESIUM 2.2 mg/dL (1.8-2.4); PHOSPHORUS 2.4 mg/dL (2.5-4.9)
[2018-05-28 20:23] LABS: CREATININE 0.9 mg/dL (0.7-1.3)
--- NOTE | 2018-05-28 21:25 | NUR ---
DR. HUDSON LAL NOTIFIED OF PATIENT'S 2100 BSL OF 129 MG/DL (2ND TIME OF THE Q2H) AND BNP RESULTS. WAITING FOR FURTHER ORDERS.
[2018-05-28] MEDS ORDERED: INSULIN LANTUS 100 UNITS/ML 10 ML VIAL SUBQ SCH (22:00)
--- NOTE | 2018-05-28 22:08 | NUR ---
STILL ON INSULIN DRIP AT THIS TIME. BSL 128MG/ DL. WILL ADMISNITER LANTUS SQ ORDERED X1 AT [address] LAL ORDERED TO CONTINUE INSULIN DRIP UNTIL 2300. WILL CONTINUE TO MONITOR.
--- NOTE | 2018-05-28 23:16 | NUR ---
2300 INSULIN DRIP DISCONTINUED ORDERED. NEOSYNEPHRINE DECREASED TO 25MCG/MIN. BP 116/77. HR 109, O2 SAT 99 RR 19. NO DISTRESS NOTED. HAD 1 LARGE AMOUNT DARK BROWN STOOL.
[2018-05-29] VITALS (103 sets, daily range): BP systolic 98–145; BP diastolic 67–108
--- NOTE | 2018-05-29 | NUR ---
NOTED URINE OUTPUT 200ML SINCE START OF SHIFT, BLOODY URINE NOTED. DR. LAL NOTIFIED. WILL CONTINUE TO MONITOR.
[2018-05-29] MEDS: BLOOD GLUCOSE MONITORING 1 DEV DEV FS SCH ×6 (00:23→21:50)
[2018-05-29] MEDS: INSULIN LISPRO SLIDING SCALE 100 UNITS/ML VIAL SUBQ PRN ×5 (00:39→21:54)
[2018-05-29] MEDS: DEXT 5% / NACL 0.45% 1,000 ML IV SCH ×3 (00:56→15:40)
[2018-05-29] MEDS: PIPER/TAZO 3.375GM/D5W PREMIX 50 ML IV SCH ×4 (02:00→21:00)
[2018-05-29] MEDS: PHENYLEPHRINE 40 MG in NACL 0.9% 250 ML IV PRN (03:57)
[2018-05-29] MEDS: PROPOFOL 1000 MG/100 ML PREMIX 100 ML IV PRN ×2 (03:58→12:17)
--- NOTE | 2018-05-29 04:00 | NUR ---
ivf decrease to 100 ml/hr per DR. LAL ORDER.
[2018-05-29 04:14] LABS: ANION GAP 11.4 (8-16); CARBON DIOXIDE 24.3 mmol/L (21-32); CREATININE 0.7 mg/dL (0.7-1.3); POTASSIUM 3.7 mmol/L (3.5-5.1)
[2018-05-29 04:18] LABS: MAGNESIUM 2.2 mg/dL (1.8-2.4); PHOSPHORUS 1.8 mg/dL (2.5-4.9)
--- NOTE | 2018-05-29 04:30 | NUR ---
INSERTED [address] LAL ORDERS, NS 3L BLADDER IRRIGANT STARTED, INITIAL OUTPUT: BRIGHT RED WITH CLOTS , AND IS NOW PEACH COLORED. PT TOLERATED ELLISON INSERTION, SECURED WITH VELCRO TAPE, DRAINING TO GRAVITY. WILL CONTINUE TO MONITOR.
--- NOTE | 2018-05-29 06:00 | NUR ---
BLADDER IRRIGATION: IN = 1000 ML, OUT = 1300. OUTPUT = 300 ML FROM BLADDER IRRIGATION. PREVIOUS URINE BAG - DISCARDED 300 ML. TOTAL OUTPUT= 600 ML.
--- NOTE | 2018-05-29 06:30 | NUR ---
RECEIVED PT ON CARESCAPE ON DOCUMENTED SETTINGS, ALARMS ARE ON AND AUDIBLE, PTS ET TUBE SIZE 8.0 IS SECURE 25 CM ANCHOR FAST BS CLEAR PT IN HF QUIET, VENT PLUGGED INTO RED OUTLET, BMV HOB
--- NOTE | 2018-05-29 07:15 | NUR ---
RECEIVED BEDSIDE REPORT FROM MANUFACTURING ENGINEERING DIRECTOR RNALMITA, FOR CONTINUITY OF CARE. PATIENT IS SEDATED WITH FENTANYL AND PROPOFOL, RASS -3. PATIENT SKIN IS INTACT, WARM AND DRY. HE HAS CENTRAL LINE TO RIJ. PATIENT IS ON PARTH-SYNEPHRINE AT 50 MCG. SR ON MONITOR, FLACC 0. PATIENT HAS ETT TO VENT, SETTINGS ARE FIO2 30, TV 500, AC 20, PEEP 5. BREATHING EVEN AND UNLABORED. PATIENT HAS AN OGT IN PLACE, NO RESIDUAL. ELLISON CATHETER IN PLACE WITH IRRIGATION. URINE IS BLOOD TINGED. SAFETY PRECAUTIONS AND ALARMS ASSESSED AND ENFORCED, HOB IS 30 DEGREES. NO SIGNS OF DISTRESS AT THIS TIME. WILL CONTINUE TO MONITOR Addendum: 05/29/18 at 1900 by Darling Enriquez RN DRY WEIGHT IS 58.9 Addendum: 05/29/18 at 1901 by Darling Enriquez RN KG
--- NOTE | 2018-05-29 07:25 | NUR ---
REPORT GIVEN TO AM SHIFT RN. NO SIGNS OF DISTRESS NOTED. PT IN STABLE CONDITION.
[2018-05-29] MEDS: PANTOPRAZOLE 40 MG INJ VIAL IVP SCH (09:08)
[2018-05-29] MEDS: ENOXAPARIN 40 MG/0.4 ML SYR SUBQ SCH (09:08)
[2018-05-29] MEDS: LACTOBACILLUS RHAMNOSUS GG 1 EACH CAP PO SCH (09:08)
--- NOTE | 2018-05-29 10:00 | NUR ---
PT TAKEN TO C-SCAN RETURNED IC5 [id number] W\O INCIDENT
--- NOTE | 2018-05-29 10:07 | NUR ---
TRANSPORTED PATIENT TO RADIOLOGY FOR CT OF THE HEAD. PATIENT WAS HOOKED UP TO TRANSPORT MONITOR, VITAL SIGNS STABLE, NO SIGNS OF DISTRESS NOTED.
--- NOTE | 2018-05-29 10:32 | NUR ---
PATIENT IS BACK ON UNIT, TOLERATED PROCEDURE WELL. WILL CONTINUE TO MONITOR
--- NOTE | 2018-05-29 10:45 | NUR ---
DR JIMENEZ PAGED AND CALLED BACK REGARDING CLARIFICATION FOR EXTUBATION. WITH ORDERS TO HOLD SEDATION AND MAY EXTUBATE WHEN PATIENT IS FULLY AWAKE. ADDITIONAL ORDERS FOR ATIVAN AND HALDOL PRN TRANSCRIBED AND CARRIED OUT. RT MADE AWARE.
[2018-05-29] MEDS ORDERED: MIDAZOLAM MDV 50 MG in NACL 0.9% 40 ML IV PRN (11:40)
--- NOTE | 2018-05-29 11:45 | NUR ---
PT COMBATIVE DOSE NOT FOLLOW VERBAL COMMANDS SEDATION RETURNED SAME SETTINGS ON VENT
[2018-05-29] MEDS: LORazepam 2 MG/ML VIAL IVP PRN ×3 (11:48→23:46)
--- NOTE | 2018-05-29 11:49 | NUR ---
TURNED OFF SEDATION AT 1102 TO SEE IF PATIENT CAN BE EXTUBATED, HOWEVER PATIENT DID NOT TOLERATE WELL, HE WAS VERY COMBATIVE, WOULD NOT FOLLOW COMMANDS. DR. JIMENEZ IS AWARE, STATES TO PUT PATIENT BACK ON PROPOFOL AND VERSED.
--- NOTE | 2018-05-29 11:50 | NUR ---
PATIENT IS BACK ON PROPOFOL, HAVE NOT STARTED PATIENT ON VERSED SINCE PATIENT IS AT RASS-3.
[2018-05-29] MEDS ORDERED: Z-GUARD PASTE TP PRN (14:45)
--- NOTE | 2018-05-29 15:34 | NUR ---
US TECH AT BEDSIDE FOR US OF THE KIDNEYS AND BLADDER.
[2018-05-29] MEDS: SODIUM PHOS / POTASSIUM PHOS 1 PKT PDR PO SCH (16:25)
--- NOTE | 2018-05-29 19:10 | NUR ---
RCV'D PT ON MECHANICAL VENTILATION INTUBATED WITH 8.0 ETT AT 25 CM AT LIP. TUBE IS IN PLACE AND SECURED. VENT SETTINGS CHARTED. VENT IS CONNECTED TO RED OUTLET. ALARM AUDIBLE. AMBU BAG AT BEDSIDE. NO SOB OR DISTRESS NOTED. WILL CONTINUE TO MONITOR.
--- NOTE | 2018-05-29 19:25 | NUR ---
RECEIVED BEDSIDE REPORT FROM MORNING SHIFT RN, CODY, FOR CONTINUITY OF CARE. PT IS ETT TO VENTILATED, DOES NOT FOLLOW COMMANDS. TEMP 97.4, 110/79, OT=559, RR=18, SATING 99%. LUNGS SOUND CLEAR ON UPPER/LOWER BILATERAL LOBES. VENT SETTINGCS ACVC, FIO2=30%, SM=685, RR=18, FLOW=40L/MIN, PEEP=5. SR-ST ON SUGAR CANE FARM MANAGER HR 98-103. OGT IN PLACE, BOWEL SOUND ACTIVE X4. ELLISON IS INTACT, WITH BLADDER IRRIGATION, SANGUINOU DRAINAGE IN ELLISON CATHETER NOTED. RIGHT IJ INFUSING PROPOFOL AT 35MCG/MIN. RASS -3, AND D5NS AT 100CC/HR. RFA PIV AND RIGHT WRIST PIV 20 GAUGE SALINE FLUSHED WITH BLOOD RETURN. HOB ELEVATED ABOVE 30 DEG, FALL RISK PRECAUTIONS MAINTAINED. NO RESTRAINTS. SKIN IS INTACT, NON BLANCHABLE REDNESS NOTED ON BILATERAL LEGS, DRESSING PLACED ON LEFT BLISTER IS INTACT. NO SIGNS OF DRAINAGE NOTED. DRY WEIGHT 58.9KG FOR PROPOFOL DRIP.
--- NOTE | 2018-05-29 20:20 | NUR ---
VISITORS AT BEDSIDE TO SEE PATIENT.
[2018-05-29] MEDS ORDERED: INSULIN LANTUS 100 UNITS/ML 10 ML VIAL SUBQ SCH (21:00)
--- NOTE | 2018-05-29 21:50 | NUR ---
BG CHECKED AT THIS TIME = 305, COVERAGE GIVEN.
--- NOTE | 2018-05-29 23:46 | NUR ---
ATIVAN GIVEN, PT MILDLY RESTLESS IN BED. MARIUM LAL UPDATED ON PT CONDITION, STATED TO TITRATE PROPOFOL PER PROTOCOL. WILL CARRY OUT.
[2018-05-30] VITALS (53 sets, daily range): BP systolic 96–144; BP diastolic 50–97
--- NOTE | 2018-05-30 00:15 | NUR ---
PT APPEARS TO BE MORE CALM AND RELAXED AFTER ATIVAN ADMINISTRATION
[2018-05-30] MEDS: PROPOFOL 1000 MG/100 ML PREMIX 100 ML IV PRN ×2 (00:37→08:50)
[2018-05-30] MEDS: Z-GUARD PASTE TP SCH ×2 (00:39→13:43)
[2018-05-30] MEDS: BLOOD GLUCOSE MONITORING 1 DEV DEV FS SCH ×6 (01:00→20:28)
[2018-05-30] MEDS: DEXT 5% / NACL 0.45% 1,000 ML IV SCH ×3 (01:11→22:00)
[2018-05-30] MEDS: PIPER/TAZO 3.375GM/D5W PREMIX 50 ML IV SCH ×4 (01:12→20:01)
[2018-05-30] MEDS: INSULIN LISPRO SLIDING SCALE 100 UNITS/ML VIAL SUBQ PRN (01:21)
[2018-05-30] MEDS: LORazepam 2 MG/ML VIAL IVP PRN ×4 (03:25→22:00)
--- NOTE | 2018-05-30 03:40 | NUR ---
PT HAD X2 SMALL BOWEL MOVEMENTS DARK BROWN, ATIVAN GIVEN PRIOR TO REPOSITIONING AND GOWN CHANGE. PT CALM AND RELAXED AT THIS TIME.
[2018-05-30 05:33] LABS: CARBON DIOXIDE 28.4 mmol/L (21-32); CREATININE 0.4 mg/dL (0.7-1.3); POTASSIUM 3.4 mmol/L (3.5-5.1)
[2018-05-30 05:37] LABS: MAGNESIUM 2.2 mg/dL (1.8-2.4); PHOSPHORUS 1.9 mg/dL (2.5-4.9)
--- NOTE | 2018-05-30 06:17 | NUR ---
DR TRAN AT BEDSIDE TO SEE PATIENT.
--- NOTE | 2018-05-30 06:30 | NUR ---
SPOKE WITH DR. JIMENEZ REGARDING EXPECTED EXTUBATION TIME. NO TIME GIVEN AT THE MOMENT. UNABLE TO MAKE FAMILY AWARE OF EXPECTED TIME.
[2018-05-30 06:44] LABS: BASOPHILS % (AUTO) 0.2 % (0.0-2.0); EOSINOPHILS % (AUTO) 0.3 % (0.0-4.0); HEMATOCRIT 30.2 % (36-52); HEMOGLOBIN 10.6 g/dL (12.0-18.0); LYMPHOCYTES # (AUTO) 1.2 K/uL (2.0-11.5); LYMPHOCYTES % (AUTO) 15.2 % (20.5-51.1); MEAN CORPUSCULAR HEMOGLOBIN 32 pg (27-31); MEAN CORPUSCULAR HGB CONC 35 g/dL (33-37); MEAN CORPUSCULAR VOLUME 92.3 fL (80-94); MONOCYTES # (AUTO) 0.4 K/uL (0.8-1.0); MONOCYTES % (AUTO) 5.2 % (1.7-9.3); NEUTROPHILS # (AUTO) 6.1 K/uL (1.8-7.7); NEUTROPHILS % (AUTO) 79.1 % (42.2-75.2); PLATELET COUNT (AUTO) 72 K/uL (140-450); RED BLOOD CELL COUNT(AUTO) 3.28 MIL/uL (4.20-6.10); RED CELL DISTRIBUTION WIDTH 13.1 % (11.6-13.7); WHITE BLOOD COUNT (AUTO) 7.8 K/uL (4.8-10.8)
--- NOTE | 2018-05-30 07:00 | NUR ---
GAVE BEDSIDE REPORT TO MORNING SHIFT FRANCISCO ROB FOR CONTINUITY OF CARE.
--- NOTE | 2018-05-30 07:15 | NUR ---
RECEIVED REPORT FROM NOC RN FOR CONTINUITY OF CARE. PATIENT IS SEDATED WITH PROPOFOL AT 45 MCG/KG/H, DRY WT 58.9KG AND -3 RASS. ABLE TO OPEN EYES TO VOICE. RIJ CENTRAL LINE TRIPLE LUMEN CATHETER, PATENT AND INTACT. SKIN WARM TO TOUCH WNL, TOENAILS WNL, NO EDEMA, WITH HAIR GROWTH AND +3 BILATERAL PEDAL PULSES. INTACT BLISTERS NOTED TO LEFT EAR AND RIGHT DORSAL ANKLE. FC 16FR PATENT AND INTACT TO BLOOD TINGE URINE IN MODERATE AMOUNT WITH BLADDER IRRIGATION. ON ETT TO VENT FIO2 30%, TV 400, AC 18. SAFETY MEASURES IN PLACE. WILL CONTINUE TO MONITOR
--- NOTE | 2018-05-30 07:24 | NUR ---
RECIVED PT ON VENT WITH SETTINGS CHARTED BREATH PRESENT BILAT SXN MIN AMT OFF WHITE SECS ETT SECURE AMBU BAG AT BEDSIDE VENT PLUGGED INTO RED OUTLET WILL CONTINUE TO MONITOR PT
--- NOTE | 2018-05-30 07:50 | NUR ---
DR TONY WOO. WITH ORDERS TO TRY TO DO SEDATION VACATION AND MAY EXTUBATE WHEN FULLY AWAKE.
[2018-05-30] MEDS ORDERED: POTASSIUM PHOSPHATE 15 MM in NACL 0.9% 250 ML IV SCH (08:00)
[2018-05-30] MEDS: PANTOPRAZOLE 40 MG INJ VIAL IVP SCH (08:07)
[2018-05-30] MEDS: LACTOBACILLUS RHAMNOSUS GG 1 EACH CAP PO SCH (08:08)
[2018-05-30] MEDS: ENOXAPARIN 40 MG/0.4 ML SYR SUBQ SCH ×2 (08:09→09:00)
--- NOTE | 2018-05-30 09:05 | NUR ---
PROPOFOL DRIP TURNED OFF AT THIS TIME FOR SEDATION VACATION. RT AT BEDSIDE. MOTHER AT BEDSIDE WELL.
--- NOTE | 2018-05-30 09:45 | NUR ---
PATIENT IS NOT FULLY AWAKE STILL, MOTHER AND SISTER AT BEDSIDE. WILL CONTINUE TO MONITOR PATIENT.
--- NOTE | 2018-05-30 10:06 | NUR ---
SEDATION VACATION STARTED 904 PT SLOWLY WAKING UP FAMILY BEDSIDE MOTHER AND SISTER WHILE ON CPAP PT WENT APNIC SWITCHED BACK TO AC WITH SETTINGS CHARTED PT SILL ON SEDATION VACATION BUT NOT REALLY ALERT UNABLE TO RESPOND TO VERBAL COMMANDS
--- NOTE | 2018-05-30 11:00 | NUR ---
PATIENT IS MORE AWAKE NOW, ABLE TO FOLLOW SIMPLE COMMANDS. EXTUBATED BY RT. PLACED ON O2 AT 2 LPM/NC. WILL CONTINUE TO MONITOR PATIENT.
[2018-05-30] MEDS ORDERED: ALBUTEROL SULFATE/IPRATROPIU 3 ML SOL IH PRN (11:10)
[2018-05-30] MEDS ORDERED: ALBUTEROL SULFATE/IPRATROPIU 3 ML SOL IH ONE (11:23)
--- NOTE | 2018-05-30 11:33 | NUR ---
PT EXTUBATED DR VILLA AWARE ORDERED BY DR JIMENEZ PT AWAKE SQUEEZING HAND WHEN ASKED PLACED ON 3LPM NC HHN RX GIVEN WITH DOUNEB PT SLEEPING ON 3LPM NC FAMILY AT BEDSIDE WILL CONTINUE TO MONITOR
--- NOTE | 2018-05-30 13:35 | NUR ---
REASSESSMENT FOR ATIVAN GIVEN: PATIENT IS RESTING QUIETLY, V/S STABLE, NOT IN ANY DISTRESS Addendum: 05/30/18 at 1624 by Kya Crawley RN REASSESSMENT AT 1535 NOT 1335.
[2018-05-30] MEDS: ALBUTEROL SULFATE/IPRATROPIU 3 ML SOL IH SCH ×2 (13:50→19:00)
[2018-05-30] MEDS ORDERED: POTASSIUM CHLORIDE 40 MEQ, LIDOCAINE 1% 25 MG in NACL 0.9% 250 ML IV SCH (14:00)
--- NOTE | 2018-05-30 14:34 | NUR ---
PATIENT IS AGITATED AND RESTLESS, TRYING TO GET OUT OF BED. PRN ATIVAN GIVEN,
[2018-05-30] MEDS: HALOPERIDOL IM 5 MG/ML VIAL IVP PRN ×3 (14:56→23:58)
--- NOTE | 2018-05-30 14:56 | NUR ---
PATIENT REMAINS RESTLESS, PRN HALDOL 2MG IV GIVEN
--- NOTE | 2018-05-30 15:35 | NUR ---
REASSESSMENT FOR HALDOL GIVEN: PATIENT IS RESTING QUIETLY, V/S STABLE, NOT IN ANY DISTRESS
--- NOTE | 2018-05-30 16:22 | NUR ---
05/30/18 RD FOLLOW UP COMPLETED PLEASE REFER TO NUTRITION ASSESSMENT UNDER CARE ACTIVITY FOR ESTIMATED NUTRITIONAL NEEDS. 1. RECOMMEND [facility] DIET WHEN PATIENT IS MEDICALLY STABLE 2. DIABETES EDUCATION WAS PROVIDED TO FAMILY MEMBERS 3. PROVIDED DIABETES EDUCATION TO PATIENT WHEN HE IS ALERT 4. RD TO FOLLOW-UP 2-3 DAYS, HIGH RISK RAGHAVENDRA CALI RD
[2018-05-30] MEDS: SODIUM PHOS / POTASSIUM PHOS 1 PKT PDR PO SCH (16:30)
--- NOTE | 2018-05-30 19:20 | NUR ---
RECEIVED REPORT FROM AM SHIFT. PT AOX1. RESPONDS TO TACTILE STIMULI. ON NON BEHAVIORAL RESTRAINTS. ON NC 3LPM. EVEN UNLABORED BREATHING. SR ON MONITOR. BOWEL SOUNDS HYPOACTIVE X 4 QUADRANTS. BRUISES NOTED ON LOWER EXTREMITIES. I V SITE LFA 20G. RIJ CENTRAL LINE DRESSING INTACT. BED IN LOWEST POSITION. SR UP X4. WILL CONTINUE TO MONITOR.
--- NOTE | 2018-05-30 19:22 | NUR ---
REPORT GIVEN TO NOC RN FOR CONTINUITY OF CARE. PATIENT IN STABLE CONDITION
[2018-05-30 19:24] LABS: HEMATOCRIT 31.2 % (36-52); HEMOGLOBIN 10.9 g/dL (12.0-18.0)
--- NOTE | 2018-05-30 20:01 | NUR ---
PT AGITATED AND RESTLESS AT THIS TIME. GIVEN HALDOL IVP. REPOSITIONED FOR COMFORT.
--- NOTE | 2018-05-30 20:31 | NUR ---
PT REASSESSED FOR HALDOL EFFECTIVENESS. PT RESTING QUIETLY. VSS.
[2018-05-30] MEDS: INSULIN LANTUS 100 UNITS/ML 10 ML VIAL SUBQ SCH (21:00)
--- NOTE | 2018-05-30 22:00 | NUR ---
PT AGITATED AND RESTLESS AT THIS TIME. GIVEN ATIVAN FOR COMFORT.
[2018-05-31] VITALS (10 sets, daily range): BP systolic 108–135; BP diastolic 69–94
--- NOTE | 2018-05-31 00:01 | NUR ---
PT RESTLESS AT THIS TIME. GIVEN HALDOL AT THIS TIME FOR AGITATION.
[2018-05-31] MEDS: BLOOD GLUCOSE MONITORING 1 DEV DEV FS SCH ×6 (00:12→20:00)
[2018-05-31] MEDS: Z-GUARD PASTE TP SCH ×2 (01:19→12:38)
[2018-05-31] MEDS: PIPER/TAZO 3.375GM/D5W PREMIX 50 ML IV SCH ×4 (01:42→21:45)
[2018-05-31] MEDS: LORazepam 2 MG/ML VIAL IVP PRN ×2 (02:03→06:18)
--- NOTE | 2018-05-31 02:10 | NUR ---
AM CARE PROVIDED AT THIS TIME. PATIENT TURNED AT REPOSITIONED. 1 LARGE BM NOTED. WILL CONTINUE TO MONITOR.
[2018-05-31] MEDS: HALOPERIDOL IM 5 MG/ML VIAL IVP PRN (04:08)
--- NOTE | 2018-05-31 04:59 | NUR ---
RT AT BEDSIDE FOR LAB DRAWS
--- NOTE | 2018-05-31 06:37 | NUR ---
DR. TRAN AT BEDSIDE AT THIS TIME. UPDATED ON PTS CURRENT CONDITION. WILL CONTINUE TO FOLLOW UP ADDITIONAL ORDERS
[2018-05-31 07:21] LABS: CREATININE 0.4 mg/dL (0.7-1.3)
[2018-05-31 07:23] LABS: BASOPHILS % (AUTO) 0.2 % (0.0-2.0); EOSINOPHILS % (AUTO) 0.5 % (0.0-4.0); HEMATOCRIT 32.6 % (36-52); HEMOGLOBIN 11.2 g/dL (12.0-18.0); LYMPHOCYTES % (AUTO) 15.4 % (20.5-51.1); MEAN CORPUSCULAR HEMOGLOBIN 32 pg (27-31); MEAN CORPUSCULAR HGB CONC 34 g/dL (33-37); MEAN CORPUSCULAR VOLUME 93.6 fL (80-94); MONOCYTES # (AUTO) 0.3 K/uL (0.8-1.0); NEUTROPHILS # (AUTO) 5.1 K/uL (1.8-7.7); NEUTROPHILS % (AUTO) 78.9 % (42.2-75.2); PLATELET COUNT (AUTO) 67 K/uL (140-450); RED BLOOD CELL COUNT(AUTO) 3.48 MIL/uL (4.20-6.10); RED CELL DISTRIBUTION WIDTH 12.8 % (11.6-13.7); WHITE BLOOD COUNT (AUTO) 6.5 K/uL (4.8-10.8)
--- NOTE | 2018-05-31 07:30 | NUR ---
RECEIVED PATIENT ON BED SLEEPING BUT AROUSABLE .PER SUPERVISOR ENGRAVING GAVE ATIVAN 0618.URINE IS CLEAR.CBI CONTINUOUS.RIGHT IJ TRIPLE LUMEN INTACT AND PATENT.BILATERAL SOFT WRIST RESTRAINTS ON PT IS IMPULSIVE AND WILL PULL MEDICAL DEVICES.ALL ALTERNATIVES DONE BUT PT IS STILL IMPULSIVE.ST 103 ON THE MONITOR.WILL MONITOR,
[2018-05-31 07:40] LABS: MAGNESIUM 1.9 mg/dL (1.8-2.4)
[2018-05-31] MEDS: DEXT 5% / NACL 0.45% 1,000 ML IV SCH ×2 (08:52→17:40)
[2018-05-31] MEDS: LACTOBACILLUS RHAMNOSUS GG 1 EACH CAP PO SCH (08:55)
[2018-05-31] MEDS: PANTOPRAZOLE 40 MG INJ VIAL IVP SCH (08:59)
--- NOTE | 2018-05-31 10:23 | NUR ---
DR TRAN TALKED TO MOTHER AND UPDATED ABOUT PATIENT
--- NOTE | 2018-05-31 12:05 | NUR ---
SKIN ASSESSMENT DONE WITH PRIMARY RN, PT. IS ALTER, UNABLE TO ANSWER QUESTION, MOTHER AT BEDSIDE AWARE OF SKIN ALTERATIONS AND REQUEST NOT TO WAKE HIS UP. EXPLAIN TO HER WILL ASSESS PT WITH CARE. PER CHART REVIEW PT. ADMITTED WITH BRUISES TO RIGHT LOWER LEG AND DR. TRAN REQUEST WOUND CONSULT TODAY FOR OPEN BLISTER TO RIGHT LOWER LEG. PT IS RESTLESS DURING ASSESSMENT, OBSERVED LEFT LEG CONSTANTLY CROSSING TO RIGHT LEG AND CAUSING FRICTION/SHEARING. WRIST RESTRAINTS IN PLACE . 4 NURSING STAFF ASSIST FOR REPOSITION AND CARE AT THIS TIME. INTEGUMENTARY: -INCONTINENT ASSOCIATED DERMATITIS TO RIGHT AND LEFT BUTTOCKS REDNESS, AND EVELYN ANAL WITH MULTIPLE PIN POINTS EROSIONS,WOUND BED ARE RED, MOIST, NO ODOR. -RIGHT LOWER LET TOWARD RIGHT MEDIAL EVELYN-ANKLE WITH PARTIAL THICKNESS SKIN LOSS OPENED BLISTER, 11X4X0.1CM WOUND BED DARK PURPLE, EVELYN WOUND SKIN INTACT -LEFT EAR BLISTER SKIN INTACT 2X1 CM -LEFT FLANK SCRATCH ADAM EVELYN-WOUND SKIN INTACT RECOMMENDATIONS: -CLEANSE RIGHT AND LEFT BUTTOCKS REDNESS, AND EVELYN-ANAL AREAS WITH SOAP AND WATER, PAT DRY AND APPLY Z-GUARD, BID AND PRN IF SOILING -CLEANSE RIGHT LOWER LEG WOUND WITH NS. PAT DRY, APPLY VESATEL DRESSING COVER WITH LARGE ISLAND DRESSING CHANGE PRN IF SOILING -APPLY SKIN PREP TO LEFT EAR BIDWC AND LEAVE IT OPEN TO AIR -OFFLOAD BILATERAL HEELS BY PLACING PILLOWS UNDER CALVES UNLESS OTHERWISE CONTRAINDICATED -PRESSURE REDISTRIBUTION SURFACE THERAPY -TURN AND REPOSITION Q2H, OFFLOAD SACRALCOCCYX BY TURNING RIGHT AND LEFT -MONITOR SKIN CONDITION EACH TIME PT IS REPOSITIONS -CONTINUE TO FOLLOW RD RECOMMENDATIONS ALL ABOVE RECOMMENDATIONS DISCUSSED WITH PRIMARY RN WILL FOLLOW UP PT Q7-10 DAYS. PLEASE CONTACT WOUND CARE NURSE FOR ANY QUESTION AND CHANGE OF WOUND CONDITION.
--- NOTE | 2018-05-31 12:47 | NUR ---
S.T. BEDSIDE SWALLOW EVAL COMPLETED See report for details. Pt presents with mod-severe oropharyngeal dysphagia c/b general OM weakness, with bolus holding and prolonged oral prep with all textures, delayed pharyngeal swallow response across all textures and coughing observed after P.O. trials of ice chips, thin liquids via spoon and nectar thick liquids via spoon and cup sip. Diffuse oral residue observed after swallows of applesauce and honey thick liquids, but no overt s/s aspiration. Pt is at high risk for aspiration. Recommend: 1) Advance to pureed diet, honey thick liquids via spoon only. 2) Crush P.O. meds and mix w/ a puree. 3) 1:1 feeder w/ strict aspiration precautions. 4) Advance diet very conservatively, only if pt's alertness and overall strength/coordination is markedly improved. 5) S.T. to follow up 1x/1 week for therapy. D/w pt and family member at bedside, as well as bedside RN. Time: [id number]
--- NOTE | 2018-05-31 14:09 | NUR ---
Urgent Care Physician Note: I met with patient's mother Jacklyn Vazquez at bedside. Per Jacklyn, patient cannot go to her home upon discharge if he needs placement. She is aware we are still waiting for MD's discharge plan recommendation.
--- NOTE | 2018-05-31 15:00 | NUR ---
MOTHER AT THE BEDSIDE AND MADE AWARE PT IS GOING TO TELEMETRY
--- NOTE | 2018-05-31 15:23 | NUR ---
FNS CONSULT RECEIVED FOR DIABETES EDUCATION. YESTERDAY AN EDUCATION PACKET WAS GIVEN TO FAMILY MEMBERS. TODAY RD VISITED PATIENT, UNABLE TO GIVE EDUCATION DUE TO BEING UNAROUSABLE. WILL ATTEMPT TO GIVE EDUCATION TOMORROW. RAGHAVENDRA CALI RD
--- NOTE | 2018-05-31 16:33 | NUR ---
REPORT GIVEN TO
--- NOTE | 2018-05-31 17:30 | NUR ---
TRANSFERRED PATIENT TO TELEMETRY 11B. Addendum: 05/31/18 at 1818 by Janel Roblero RN RN NO CO PAIN NOR ANY DISCOMFORT,GIANCARLO ROB SHOWED THE BILATERAL BUTTOCKS AND OTHER WOUND.
--- NOTE | 2018-05-31 17:59 | NUR ---
PATIENT TRANSFERRED SAFELY TO [facility] [place] [facility]. NO DISTRESS NOTED. FLACC 0. V/S STABLE. WILL CONTINUE TO MONITOR.
--- NOTE | 2018-05-31 19:29 | NUR ---
GAVE REPORT TO MANAGER ORACLE DATABASE NURSE FOR CONTINUITY OF CARE. PATIENT IN STABLE CONDITION.
--- NOTE | 2018-05-31 19:30 | NUR ---
REPORT RECEIVED FROM GIANCARLO ROB DAYSHIFT NURSE AT BEDSIDE FOR CONTINUITY OF CARE, PT IN STABLE CONDITION. PT RESTING WITH EYES CLOSED AND BILATERAL WRIST RESTRAINTS IN PLACE. PT ALSO HAS IRRIGATION BAG RUNNING FOR [address] ELLISON CATHETER. URINE IS VERY PALE YELLOW NO BLOOD IN URINE. ALL FALLS AND SEIZURES PRECAUTIONS IN PLACE. IV SITE ON RIGHT EJ FLUSHED PATENT.
--- NOTE | 2018-05-31 20:00 | NUR ---
PT IN BED WITH SIDE RAILS UP X2 AND ALL FALLS AND SEIZURE PRECAUTIONS IN PLACE. V/S FOLLOWS T 97.9 P 108 R 18 B/P 108/76 02 97% ON ROOM AIR. PT FINGERSTICK IS 71. PT REQUESTING FOOD AND DRINK.
[2018-05-31] MEDS ORDERED: POTASSIUM CHLORIDE 20% 40 MEQ/15 ML UDC GT ONE (20:05)
--- NOTE | 2018-05-31 20:30 | NUR ---
SPOKE WITH DR. LAL AND REMINDED THAT FNS CONSULT COMPLETED ADN THAT THEY RECOMMEND HONEY THICK LIQUIDS AND PUREE DIET. DR. LAL CHANGED DIET ORDERS. TO FOLLOW FNS RECOMMENDATIONS. PT GIVEN HONEY THICKENED WATER AND APPLESAUCE. PT WANTED MORE SO, VANILLA PUDDING WAS GIVEN. WILL RETAKE FINGERSTICK, DUE TO INSULIN BEING DUE AND PT F/S IS LOW. WILL RETAKE FINGERSTICK AFTER SNACK.
--- NOTE | 2018-05-31 21:00 | NUR ---
RESTICK OF BLOOD SUGAR DONE,AND IT WAS 75. PT GIVEN ANOTHER PUDDING IS REQUESTING AT THIS TIME.
--- NOTE | 2018-05-31 21:30 | NUR ---
PT TURNED AND REPOSITIONED. ELLISON CATHETER DRAINED 1000 MLS OF PALE URINE.
--- NOTE | 2018-05-31 22:30 | NUR ---
FINGERSTICK IS 181, PT GIVEN LANTUS COVERAGE ORDERED AT THIS TIME. SMALL SNACK OF PUDDING GIVEN. WILL CONTINUE TO MONITOR FOR SAFETY FALLS AND SEIZURE PRECAUTIONS ARE IN PLACE.
[2018-06-01] VITALS: BP 114/81
--- NOTE | 2018-06-01 | NUR ---
PT IN BED , HE WAS TURNED AND REPOSITIONED. V/S FOLLOWS T 100 P 124 R 20 B/P 114/81 02 97% ON ROOM AIR. PT GIVEN ICE PACKS FOR TEMP COOLING. WILL CONTINUE TO MONITOR FOR FEVER, SEIZURES AND SAFETY.
[2018-06-01] MEDS: BLOOD GLUCOSE MONITORING 1 DEV DEV FS SCH ×6 (00:40→21:00)
[2018-06-01] MEDS: INSULIN LANTUS 100 UNITS/ML 10 ML VIAL SUBQ SCH ×2 (00:42→22:14)
[2018-06-01] MEDS: Z-GUARD PASTE TP SCH ×2 (01:00→12:57)
--- NOTE | 2018-06-01 02:00 | NUR ---
PT GIVEN ORDERED ZOSYN IVP ORDERED, IV SITE IN R EJ FLUSHED PATENT. PT TURNED CHANGED AND REPOSITIONED. Z-GUARD APPLIED TO BUTTOCKS AFTER CLEANING. TEMP RETAKEN AND IS 97.2.
--- NOTE | 2018-06-01 02:00 | NUR ---
YUSUF HUNG ORDERED.
[2018-06-01] MEDS: PIPER/TAZO 3.375GM/D5W PREMIX 50 ML IV SCH ×2 (02:24→22:25)
[2018-06-01 04:00] VITALS: BP 122/91
[2018-06-01] MEDS: DEXT 5% / NACL 0.45% 1,000 ML IV SCH (04:12)
--- NOTE | 2018-06-01 04:30 | NUR ---
PT IN BED ALL FALLS AND SEIZURE PRECAUTIONS IN PLACE V/S FOLLOWS T 98.6 P 102 R 18 B/P 122/91 02 97%. NO S/S OF PAIN OR DISTRESS NOTED. FINGERSTICK IS 155.
--- NOTE | 2018-06-01 05:20 | NUR ---
LAB DRAWS DONE AT BEDSIDE VIA TRIPLE LUMEN IJ BY PRIMARY NURSE. PT SLEEPING NO S/S OF PAIN OR DISTRESS NOTED
[2018-06-01 06:35] LABS: BASOPHILS % (AUTO) 0.2 % (0.0-2.0); EOSINOPHILS % (AUTO) 0.6 % (0.0-4.0); HEMATOCRIT 34.5 % (36-52); LYMPHOCYTES % (AUTO) 18.5 % (20.5-51.1); MEAN CORPUSCULAR HEMOGLOBIN 32 pg (27-31); MEAN CORPUSCULAR HGB CONC 35 g/dL (33-37); MEAN CORPUSCULAR VOLUME 92.2 fL (80-94); MONOCYTES # (AUTO) 0.4 K/uL (0.8-1.0); MONOCYTES % (AUTO) 6.8 % (1.7-9.3); NEUTROPHILS # (AUTO) 4.2 K/uL (1.8-7.7); NEUTROPHILS % (AUTO) 73.9 % (42.2-75.2); PLATELET COUNT (AUTO) 96 K/uL (140-450); RED BLOOD CELL COUNT(AUTO) 3.75 MIL/uL (4.20-6.10); RED CELL DISTRIBUTION WIDTH 12.4 % (11.6-13.7); WHITE BLOOD COUNT (AUTO) 5.6 K/uL (4.8-10.8)
[2018-06-01 06:48] LABS: ANION GAP 9.5 (8-16); CARBON DIOXIDE 27.8 mmol/L (21-32); CREATININE 0.5 mg/dL (0.7-1.3); POTASSIUM 3.3 mmol/L (3.5-5.1)
[2018-06-01 06:52] LABS: MAGNESIUM 1.8 mg/dL (1.8-2.4); PHOSPHORUS 3.7 mg/dL (2.5-4.9)
--- NOTE | 2018-06-01 07:15 | NUR ---
REPORT GIVEN TO JEFFY ROB DAYSHIFT NURSE AT BEDSIDE FOR CONTINUITY OF CARE, PT IN STABLE CONDITION.
--- NOTE | 2018-06-01 07:20 | NUR ---
RECEIVED PT FROM MARINE STEAM FITTER HELPER NURSEJESUS, PT IS ASLEEP, RESPIRATION EVEN, SIDE RAILS ARE UP AND CALL LIGHT WITHIN REACH, FALL PRECAUTION INITIATED, BED ALARM ACTIVATED. NO SIGN OF DISTRESS NOTED AND WILL MONITOR PT.
--- NOTE | 2018-06-01 07:30 | NUR ---
REPORT GIVEN TO BLAINE RN DAYSHIFT NURSE AT BEDSIDE FOR CONTINUITY OF CARE, PT C/O MILD PAIN IN R ARM , GIVEN PO/PRN TYLENOL. PT IN STABLE CONDITION IV SITE IN RT IJ INTACT AND FLUSHED PATENT.
[2018-06-01 08:00] VITALS: BP 121/85
[2018-06-01] MEDS ORDERED: POTASSIUM CHLORIDE 10 MEQ TABER PO SCH (08:10)
[2018-06-01] MEDS ORDERED: LACTULOSE 20 GM/30 ML UDC PO SCH (08:35)
[2018-06-01] MEDS: LACTOBACILLUS RHAMNOSUS GG 1 EACH CAP PO SCH (09:11)
[2018-06-01] MEDS: PANTOPRAZOLE 40 MG INJ VIAL IVP SCH (09:11)
--- NOTE | 2018-06-01 09:22 | NUR ---
PT IS AWAKE AND IS LYING ON THE BED, VITAL SIGNS CHECKED AND IS WITHIN NORMAL LIMIT, FALL PRECAUTION ENFORCED, SIDE RAILS ARE UP AND CALL LIGHT WITHIN REACH, MEDICATIONS WERE GIVEN VIA ORAL AND IV PUSH, PT TOLERATED IT, NO SIGN OF DISTRESS NOTED, FAMILY ON THE BEDSIDE, WILL MONITOR PT.
--- NOTE | 2018-06-01 09:34 | NUR ---
06/01/18 RD FOLLOW UP COMPLETED PLEASE REFER TO NUTRITION PROGRESS NOTE UNDER CARE ACTIVITY FOR ESTIMATED NUTRITION NEEDS. RD RECOMMENDATIONS: 1.RECOMMEND ADDING CCHO DIET RESTRICTION TO CURRENT DIET ORDER. 2.CONTINUE PUREED DIET TOLERATED. 3.CONTINUE HONEY-THICK TOLERATED. 4.RD TO FOLLOW-UP 2-3 DAYS, HIGH RISK. JANET RASHEED MS, RDN
[2018-06-01] MEDS: INSULIN LISPRO SLIDING SCALE 100 UNITS/ML VIAL SUBQ PRN ×2 (11:48→22:11)
--- NOTE | 2018-06-01 11:49 | NUR ---
PT IS AWAKE AND BLOOD GLUCOSE CHECKED ONE AND RESULT IS 277 AND INSULIN 6 UNITS WAS GIVEN ON THE LEFT UA, PT TOLERATED IT AND WILL CONTINUE TO MONITOR PT.
[2018-06-01 12:00] VITALS: BP 128/82
[2018-06-01] MEDS ORDERED: PIPER/TAZO 3.375GM/D5W PREMIX 50 ML IV SCH ×2 (14:00→15:00)
--- NOTE | 2018-06-01 15:00 | NUR ---
PT IS AWKE AND LYING ON THE BED, IV ZOSYN WAS GIVEN VIA IVPB AND PT TOLERATED IT. WILL MONITOR PT.
[2018-06-01] MEDS ORDERED: LORazepam 2 MG/ML VIAL IVP PRN (15:25)
[2018-06-01 16:00] VITALS: BP 134/95
--- NOTE | 2018-06-01 16:30 | NUR ---
PT WAS AWAKEN AND TOLD THAT BLOOD GLUCOSE CHECK WILL BE DONE TO HIM WELL VITAL SIGNS CHECKING BUT PT REFUSED TO COMPLY AND STARTED TO VERBALIZED FOUL WORDS. PT WAS ADVISED THAT SECURITY WILL BE CALLED IF WILL NOT BE CALM AND DISCREET WITH HIS WORDS.
--- NOTE | 2018-06-01 17:30 | NUR ---
PT IS AWAKE AND BLOOD GLUCOSE CHECK WAS DONE AND RESULT IS 144 AND NO INSULIN COVERAGE NEEDED, VITAL SIGNS CHECKED DONE AND RESULT IS WITHIN NORMAL LIMIT. WILL MONITOR PT.
[2018-06-01] MEDS: NACL 0.9% 1,000 ML IV SCH (18:00)
[2018-06-01] MEDS ORDERED: KETOROLAC 15 MG/ML VIAL IVP SCH (18:00)
--- NOTE | 2018-06-01 18:00 | NUR ---
PT WAS STARTED ON NS AT 70ML/HR NOW.
--- NOTE | 2018-06-01 19:05 | NUR ---
PT VERBALIZED A PAIN RATE OF 8/10 AND PAIN MEDICATION WAS GIVEN VIA IV PUSH AND PT TOLERATED IT, VITAL SIGNS CHECKED AND IS WITHIN NORMAL LIMIT PER PARAMETER. WILL ENDORSE TO HUMBERTO SHELLEY RN FOR RE-ASSESSMENT OF PAIN.
--- NOTE | 2018-06-01 19:20 | NUR ---
ENDORSED PT TO TREE TRIMMER NURSEJESUS FOR CONTINUITY OF CARE. PT TIS STABLE AT THIS TIME.
--- NOTE | 2018-06-01 19:20 | NUR ---
RECEIVED REPORT FORM JEFFY ROB DAYSHIFT NURSE PT IN STABLE CONDITION.
--- NOTE | 2018-06-01 19:20 | NUR ---
RECEIVED ENDORSEMENT FROM JEFFY ROB DAYSHIFT NURSE AT BEDSIDE. PT IN STABLE CONDITION. V/S FOLLOWS T 97.9 P 118 R 18 B/P 125/88 02 96%ON ROOM AIR. TRIPLE LUMEN FLUSHED PATENT. PT RECEIVED TORADOL IVP WILL MONITOR FOR PAIN.
[2018-06-01 20:00] VITALS: BP 125/88
--- NOTE | 2018-06-01 21:00 | NUR ---
PT REQUESTING SANDWICH, SOMETHING TO EAT. PT REMINDED THAT HE IS ON A PUREE DIET, ALSO F/S NEEDS TO BE TAKEN. F/S IF 281, 6 UNITS GIVEN SQ ALSO A PM SNACK.
[2018-06-01] MEDS: ACETAMINOPHEN 650 MG/20.3 ML UDC GT PRN (23:02)
[2018-06-02] VITALS: BP 122/84
[2018-06-02] MEDS ORDERED: NACL 0.9% 500 ML IV ONE (00:45)
[2018-06-02] MEDS: Z-GUARD PASTE TP SCH ×2 (01:00→12:50)
--- NOTE | 2018-06-02 01:00 | NUR ---
PT IN BED BOLUS 500MLS N/S GIVEN FOR ST. PT ALSO RECEIVED TORADOL IVP FOR PAIN IN R ARM. V/S FOLLOWS T 98.0 P 12 R 20 B/P 122/84 02 96% ON ROOM AIR.
[2018-06-02] MEDS: KETOROLAC 15 MG/ML VIAL IVP PRN ×3 (01:36→14:39)
[2018-06-02] MEDS: PIPER/TAZO 3.375GM/D5W PREMIX 50 ML IV SCH ×3 (01:41→13:16)
[2018-06-02 04:00] VITALS: BP 124/80
--- NOTE | 2018-06-02 04:00 | NUR ---
PT IN BED ALL FALLS AND SEIZURE PRECAUTIONS IN PLACE. V/S FOLLOWS T 98.7 P 94 R 18 B/P 124/88 02 97% ON ROOM AIR. PT TURNED , CHANGED AND REPOSITIONED. NO C/O VOICED BY PT ALL NEEDS ATTENDED BY STAFF.
[2018-06-02] MEDS: NACL 0.9% 1,000 ML IV SCH (05:43)
[2018-06-02] MEDS: ACETAMINOPHEN 650 MG/20.3 ML UDC GT PRN (07:02)
--- NOTE | 2018-06-02 07:15 | NUR ---
REPORT RECEIVED FROM HAILY LEE RN, AT BEDSIDE FOR CONTINUITY OF CARE. PATIENT ASLEEP. RESPIRATIONS EVEN AND UNLABORED ON ROOM AIR. NO DISTRESS OR SOB NOTED ON ROOM AIR. IV TO RIGHT IJ, TRIPLE LUMEN, INFUSING IVF WELL. PATIENT HAS DRESSING ON LOWER LEFT LEG, INTACT, NO DRAINAGE NOTED.PATIENT HAS ELLISON CATHETER DRAINING TO GRAVITY, WITH YELLOW CLEAR URINE. UPDATED BOARD. SAFETY PRECAUTIONS IN PLACE, CALL LIGHT WITHIN REACH, WILL CONTINUE TO MONITOR PATIENT.
[2018-06-02 07:16] LABS: BASOPHILS % (AUTO) 0.5 % (0.0-2.0); EOSINOPHILS # (AUTO) 0.1 K/uL (0-0.4); HEMATOCRIT 35.6 % (36-52); HEMOGLOBIN 12.4 g/dL (12.0-18.0); LYMPHOCYTES # (AUTO) 1.3 K/uL (2.0-11.5); MEAN CORPUSCULAR HEMOGLOBIN 32 pg (27-31); MEAN CORPUSCULAR HGB CONC 35 g/dL (33-37); MEAN CORPUSCULAR VOLUME 91.7 fL (80-94); MONOCYTES # (AUTO) 0.4 K/uL (0.8-1.0); MONOCYTES % (AUTO) 8.4 % (1.7-9.3); NEUTROPHILS # (AUTO) 2.7 K/uL (1.8-7.7); NEUTROPHILS % (AUTO) 60.1 % (42.2-75.2); PLATELET COUNT (AUTO) 162 K/uL (140-450); RED BLOOD CELL COUNT(AUTO) 3.89 MIL/uL (4.20-6.10); WHITE BLOOD COUNT (AUTO) 4.5 K/uL (4.8-10.8)
[2018-06-02 07:29] LABS: CARBON DIOXIDE 29.1 mmol/L (21-32); CREATININE 0.5 mg/dL (0.7-1.3); POTASSIUM 3.1 mmol/L (3.5-5.1)
[2018-06-02] MEDS: BLOOD GLUCOSE MONITORING 1 DEV DEV FS SCH ×3 (07:30→16:22)
--- NOTE | 2018-06-02 07:56 | NUR ---
PATIENT C/O PAIN 08/12. PRN PAIN MEDICATION GIVEN. ORDERED ANTIBIOTIC GIVEN. PATIENT TOLERATED THEM WELL. NO COMPLAINTS AT THIS TIME. SAFETY PRECAUTIONS IN PLACE, CALL LIGHT WITHIN REACH, WILL CONTINUE TO MONITOR PATIENT.
[2018-06-02 08:00] VITALS: BP 128/85
[2018-06-02] MEDS: PANTOPRAZOLE 40 MG INJ VIAL IVP SCH (08:45)
[2018-06-02] MEDS: LACTOBACILLUS RHAMNOSUS GG 1 EACH CAP PO SCH (08:45)
--- NOTE | 2018-06-02 08:46 | NUR ---
ORDERED MEDICATIONS GIVEN. PATIENT TOLERATED THEM WELL. PATIENT ASKED FOR MORE FOOD. SUGAR FREE JELLO PROVIDED. SAFETY PRECAUTIONS IN PLACE, CALL LIGHT WITHIN REACH, WILL CONTINUE TO MONITOR PATIENT.
[2018-06-02] MEDS ORDERED: POTASSIUM CHLORIDE 10 MEQ TABER PO SCH (09:00)
[2018-06-02] MEDS ORDERED: RIFAXIMIN 550 MG TAB PO SCH (09:00)
--- NOTE | 2018-06-02 09:38 | NUR ---
PATIENT AMBULATED OUT OF BED ON STEADY GAIT TO BATHROOM. PATIENT REPORTED HAVING BIG BM. PATIENT NOW BACK IN BED. ORDERED MEDICATIONS GIVEN. PATIENT TOLERATED THEM WELL. PATIENT ASKED FOR MORE FOOD. APPLESAUCE AND JUICE PROVIDED. INFORMED PATIENT ABOUT REMOVAL OF ELLISON CATHETER, PATIENT STATED HE WANTED TO REST AND IT CAN BE DONE BEFORE LUNCH, AFTER HE NAPS. RN VERBALIZED UNDERSTANDING. SAFETY PRECAUTIONS IN PLACE, CALL LIGHT WITHIN REACH, BED ALARM IN PLACE AND LOCKED, WILL CONTINUE TO MONITOR PATIENT.
--- NOTE | 2018-06-02 10:30 | NUR ---
PATIENT RESTING IN BED, NO SIGNS OF DISTRESS OR SOB NOTED ON ROOM AIR. RESPIRATIONS EVEN AND UNLABORED. SAFETY PRECAUTIONS IN PLACE, CALL LIGHT WITHIN REACH, WILL CONTINUE TO MONITOR PATIENT.
[2018-06-02 11:52] VITALS: BP 115/72
[2018-06-02] MEDS: INSULIN LISPRO SLIDING SCALE 100 UNITS/ML VIAL SUBQ PRN ×2 (12:17→17:37)
--- NOTE | 2018-06-02 12:18 | NUR ---
BLOOD SUGAR 170, COVERAGE GIVEN. PATIENT TOLERATED IT WELL. ASKED IF ELLISON CAN BE REMOVED, PATIENT STATED THAT HE WANTED TO EAT HIS LUNCH FIRST. RN VERBALIZED UNDERSTANDING. PATIENT NOW SITTING UP IN BED EATING LUNCH, WILL CONTINUE TO MONITOR PATIENT.
[2018-06-02] MEDS ORDERED: ACETAMINOPHEN 650 MG/20.3 ML UDC PO PRN (13:15)
--- NOTE | 2018-06-02 13:20 | NUR ---
ORDERED MEDICATION GIVEN. PATIENT REQUESTED FOR TYLENOL PRN BECAUSE TORADOL PRN NOT DUE YET FOR 4/10 PAIN, PATIENT AWARE OF SCHEDULE. PATIENT ALSO AGREEABLE TO HAVING ELLISON CATHETER REMOVED. ELLISON CATHETER REMOVED, PATIENT TOLERATED IT WELL. INFORMED PATIENT ABOUT VOIDING AND THAT IF HE DOES NOT OR IS UNABLE TO DO SO, TO INFORM RN. PATIENT VERBALIZED UNDERSTANDING. FAMILY CURRENTLY WITH PATIENT. SAFETY PRECAUTIONS IN PLACE, CALL LIGHT WITHIN REACH, WILL CONTINUE TO MONITOR PATIENT.
[2018-06-02] MEDS ORDERED: PIPER/TAZO 3.375GM/D5W PREMIX 50 ML IV SCH (14:00)
[2018-06-02 16:00] VITALS: BP 138/91
--- NOTE | 2018-06-02 17:32 | NUR ---
BLOOD SUGAR 361, COVERAGE GIVEN. PATIENT NOW SITTING UP IN BED EATING DINNER. NO COMPLAINTS AT THIS TIME. PATIENT DENIED PAIN. SAFETY PRECAUTIONS IN PLACE, CALL LIGHT WITHIN REACH, WILL CONTINUE TO MONITOR PATIENT.
--- NOTE | 2018-06-02 18:20 | NUR ---
PATIENT AMBULATED TO BATHROOM, VOIDED. THEN STARTED CHANGING INTO HIS CLOTHING. WHEN ASKED WHAT HE NEEDED, PATIENT STATED THAT HE "HAD A FAMILY EMERGENCY", AND NEEDED TO LEAVE, WANTED TO SPEAK TO THE DOCTOR. ATTEMPTED TO CALL PATIENT'S MOTHER KATIA AT [phone], NO ANSWER, LEFT VOICEMAIL. PATIENT WALKED OUT OF HIS ROOM, AND REQUESTED HIS CENTRAL CATHETER BE REMOVED. RN REQUESTED THAT HE WAIT SO RN CAN SPEAK TO DOCTOR AND CALL PATIENTS FAMILY. PATIENT VERY IMPATIENT.
--- NOTE | 2018-06-02 18:35 | NUR ---
PATIENT DEMANDED FOR CENTRAL LINE TO BE REMOVED BECAUSE HE WANTED TO GO AMA. INFORMED DR. GARCIA. DR. GARCIA CAME AND SPOKE TO PATIENT. PATIENT REITERATE HOW HE HAD A "FAMILY EMERGENCY" AND WANTED TO LEAVE. RN CALLED HIS SISTER AT [phone], SPOKE TO HER ABOUT PATIENT. CALLED PATIENT'S FATHER CHRISTINE JURADO AT [phone], SPOKE TO HIM ABOUT PATIENT'S AMA STATUS. FATHER STATED THAT HE WILL NOT BE PICKING UP PATIENT. CALLED PATIENT'S MOTHER AT [phone], INFORMED HER ABOUT PATIENT'S STATUS. FAMILY MEMBERS AWARE AND DOES NOT AGREE WITH PATIENT GOING AMA. PATIENT IS AWARE THAT FAMILY MEMBERS WERE CALLED. STILL DESIRES TO GO AMA. PATIENT WAS AGGRESSIVE IN TRYING TO GET HIS CENTRAL LINE REMOVED. DR. GARCIA ATTEMPTED TO SPEAK TO PATIENT ABOUT NOT GOING AMA. PATIENT REFUSED AND MEDICAL ADVICE AND STATED THAT HE "WANTS TO LEAVE AND I KNOW THE CONSEQUENCES OF LEAVING".
--- NOTE | 2018-06-02 18:37 | NUR ---
PATIENT AWARE OF FAMILY MEMBER'S NOT AGREEING TO PATIENT LEAVING AMA. PATIENT STATED, "I'M NOT A MANDEL, I'M AN ADULT, WHY DID YOU CALL MY FAMILY?" RN INFORMED FOR PATIENT'S SAFETY. PATIENT BECAME ANGRY AND VERBALLY ABUSE. REITERATING NEED TO GO AMA AND THREATENING TO PULL OUT CENTRAL LINE.
--- NOTE | 2018-06-02 18:40 | NUR ---
PATIENT CENTRAL LINE REMOVED PER PATIENT'S REQUEST AND WITH DR. GARCIA'S ORDER. CATHETER INTACT. DRESSING HELD DOWN FOR 3 MINUTES, MINIMAL BLEEDING NOTED. SPOKE TO YASMIN TAG MARKER ABOUT PATIENT' GOING AMA. YASMIN ATTEMPTED TO SPEAK TO PATIENT. PATIENT DOES NOT AGREE TO STAY AND REITERATED HIS DESIRE FOR AMA. PATIENT TOLD THAT PATIENT'S MEDICATION IN PHARMACY CANNOT BE REMOVED AT THIS TIME BECAUSE IT CANNOT BE ACCESSED, PATIENT STILL WANTS TO LEAVE. TELE MONITOR REMOVED. ID BANDS CUT. PATIENT ALREADY DRESSED, RN REQUESTED THAT HE STAY AND HOLD HIS CENTRAL LINE DRESSING FOR A FEW MORE MINUTES BEFORE LEAVING TO PREVENT BLEEDING. PATIENT AGREED BUT STATED THAT HE WILL BE "LEAVING SOON".
--- NOTE | 2018-06-02 18:45 | NUR ---
PATIENT AMBULATED OFF FLOOR ON STEADY GAIT. PATIENT TOOK ALL HIS BELONGINGS WITH HIM.
--- NOTE | 2018-06-02 19:21 | NUR ---
CALLED MOTHER KATIA AT [phone], LEFT MESSAGE ABOUT PATIENT. GAVE HER NUMBER TO CALL BACK TO [facility] FOR MORE INFORMATION. CHARGE NURSE BRANDON AND NIGHT CONTROL ELECTRICIAN YULISSA JAMES.
[2018-06-02] MEDS ORDERED: traZODone 50 MG TAB PO SCH (21:00)
== END 2018-06-02 18:45 | disposition left against medical advice (07) | DRG 720 ==
LOC: MED 13:30 → MIC 17:47 → EDUNIT# 17:47 → EDBD 17:47 → MTU 05-31 17:30
PROVIDERS: ADMIT General Practice; ATTEND General Practice
PROC: 5A1945Z Respiratory Ventilation, 24-96 Consecutive Hours (ICD-10-PCS; principal; 2018-05-27)
PROC: 02HV33Z Insertion of Infusion Device into Superior Vena Cava, Percutaneous Approach (ICD-10-PCS; 2018-05-27)
PROC: B548ZZA Ultrasonography of Superior Vena Cava, Guidance (ICD-10-PCS; 2018-05-27)
PROC: 0BH17EZ Insertion of Endotracheal Airway into Trachea, Via Natural or Artificial Opening (ICD-10-PCS; 2018-05-27)
DX: A41.9 Sepsis, unspecified organism (principal); J96.02 Acute respiratory failure with hypercapnia; N17.0 Acute kidney failure with tubular necrosis; J69.0 Pneumonitis due to inhalation of food and vomit; G93.41 Metabolic encephalopathy; E10.10 Type 1 diabetes mellitus with ketoacidosis without coma; E44.0 Moderate protein-calorie malnutrition; E87.1 Hypo-osmolality and hyponatremia; R65.20 Severe sepsis without septic shock; F15.10 Other stimulant abuse, uncomplicated; Z68.22 Body mass index [BMI] 22.0-22.9, adult; E87.0 Hyperosmolality and hypernatremia; F43.20 Adjustment disorder, unspecified; R62.7 Adult failure to thrive; E87.5 Hyperkalemia; J45.909 Unspecified asthma, uncomplicated; E86.0 Dehydration; Z53.21 Procedure and treatment not carried out due to patient leaving prior to being seen by health care provider; K72.90 Hepatic failure, unspecified without coma; E10.21 Type 1 diabetes mellitus with diabetic nephropathy; E83.39 Other disorders of phosphorus metabolism; E83.51 Hypocalcemia; Z59.0 Homelessness; Z79.4 Long term (current) use of insulin; Z91.14 Patient's other noncompliance with medication regimen; Z71.51 Drug abuse counseling and surveillance of drug abuser
CPT/HCPCS: 31500; 36415; 36556; 36600; 70450; 71045; 76770; 80048; 80053; 80305; 81001; 82009; 82140; 82550; 82553; 82803; 82948; 83036; 83605; 83735; 83874; 84100; 84484; 84550; 85018; 85025; 85379; 85610; 85730; 87040; 87070; 87081; 87086; 87205; 89220; 92610; 93005; 93971; 94003; 94640; 96361; 96374; 96375; 99291; C9113; G0480; G0482; J0696; J1630; J1642; J1650; J1720; J1815; J1885; J2001; J2060; J2250; J2270; J2370; J2543; J2704; J3010; J3411; J3475; J3480; J3490; J7030; J7042; J7060; J7620; Q0092